=== PATIENT | female | born 1940 | race Caucasian/White ===

== ENCOUNTER → 2018-05-21 14:59 | Outpatient (CLI) | payer MEDICARE, OTHER, SELFPAY ==
[2018-05-21 16:34] LABS: BUN Creatinine Ratio 31.4 (6-22); Blood Urea Nitrogen 22 mg/dL (7-17); Calcium 9.6 mg/dL (8.4-10.2); Carbon Dioxide 31 mmol/L (22-32); Chloride 92 mmol/L (98-107); Cholesterol 176 mg/dL (140-199); Estimated Glomerular Filt Rate > 60.0 mL/min (>60); Glucose 134 mg/dL (80-110); HDL Cholesterol 68 mg/dL (40-60); HEMOLYSIS < 15 (0-50); LDL Cholesterol Calculated 85 mg/dL (<100); Potassium 4.5 mmol/L (3.4-5.1); Sodium 129 mmol/L (137-145); Triglycerides 115 mg/dL (35-150)
== END ==
PROVIDERS: PCP Internal Medicine; Visit Provider Internal Medicine
DX: Z00.00 Encounter for general adult medical examination without abnormal findings (principal)
CPT/HCPCS: 36415; 80048; 80061

== ENCOUNTER → 2018-12-24 15:30 | Outpatient (CLI) | payer MEDICARE, OTHER, SELFPAY ==
--- NOTE | 2018-12-24 | DI.RAD.S_ITS ---
PROCEDURE: XR CHEST 2V INDICATIONS: HEART FAILURE TECHNIQUE: 2 views of the chest were acquired. COMPARISON: None. FINDINGS: Surgical changes and devices: None. Lungs and pleura: Ill-defined patchy bibasilar opacities, without definite focal consolidation. No pleural effusions or pneumothorax. Mediastinum: Mediastinal contours are normal. Heart size is enlarged. No acute consolidation. Scattered subsegmental atelectasis and/or scarring. Bones and chest wall: No suspicious bony abnormalities. Soft tissues appear unremarkable. IMPRESSION: Scattered mild patchy bibasilar opacities. This could represent aspiration/atelectasis versus scarring although low grade atypical/viral pneumonia or developing pulmonary edema cannot be entirely excluded in the absence of prior comparison studies. No definite focal consolidation. If there is persistent clinical diagnostic uncertainty, continued surveillance with short interval chest radiographs after treatment is recommended. Dictated by: Janes Thornton M.D. on 12/24/2018 at 16:30 Approved by: Janes Thornton M.D. on 12/24/2018 at 16:33
--- NOTE | 2018-12-24 | DI.RAD.S_ITS ---
This blank DEXA report has been sent in error by the PACS system. The correct and complete report will be forthcoming in 1-2 days. Thank you for your patience and understanding. Dictated by: Janes Thornton M.D. on 12/24/2018 at 16:33 Approved by: Tim Hawthorne M.D. on 05/13/2019 at 6:24
== END ==
PROVIDERS: PCP Internal Medicine; Visit Provider Internal Medicine
DX: I50.9 Heart failure, unspecified (principal); M81.0 Age-related osteoporosis without current pathological fracture; Z78.0 Asymptomatic menopausal state
CPT/HCPCS: 71046; 77080

== ENCOUNTER → 2019-01-18 15:06 | Outpatient (CLI) | payer MEDICARE, OTHER, SELFPAY ==
--- NOTE | 2019-01-18 | DI.ECHO.S_ITS ---
[facility]---------+ [facility] +---------+ : : [address] [place] [address] : : : : [id number] : : : : Phone: [phone]+ Echocardiogram Report + + :Name: VALENTIN HERNANDEZ I Study Date: 01/18/2019 Height: 66 in : :[facility] Weight: 144 lb : : Gender: Female BSA: 1.7 m2 : :: 1940 Age: 78 yrs BP: 188/92 mmHg: :Reason For Study: Murmur : :Ordering Physician: : :Pardeep Pizarro Performed By: Carola Zuniga : + + Interpretation Summary Mild concentric left ventricular hypertrophy with ejection fraction 55-60%. Severely dilated left atrium. Mild aortic stenosis. Moderate to severe aortic regurgitation. There is mild holodiastolic flow reversal in the descending thoracic aorta. Mild-moderately enlarged ascending aorta. Moderate mitral annular calcification. Mild mitral regurgitation. Procedure: A two-dimensional transthoracic echocardiogram with color flow and Doppler was performed. The study quality was technically adequate. There is no prior echocardiogram noted for this patient. The patient was hypertensive during today's exam with a reading of 188/92 mmHg before the echo and 164/76 mmHg afterwards. The patient was in normal sinus rhythm during the exam. Left Ventricle: The left ventricle is normal in size. There is mild concentric left ventricular hypertrophy. A false chord is noted (normal variant). The ejection fraction is estimated to be 55-60%. There are no focal wall motion abnormalities. Diastolic function could not be accurately assessed due to confounding valvular disease. Right Ventricle: The right ventricle is normal in size and function. Atria: The left atrium is severely dilated. Right atrial size is normal. There is no Doppler evidence for an interatrial shunt. Mitral Valve: There is moderate mitral annular calcification. The mitral valve leaflets are mildly calcified. There is mild mitral regurgitation. Aortic Valve: The aortic valve is trileaflet. The aortic valve is moderately calcified. The aortic valve area is 1.4 centimeters squared by planimetry. The calculated aortic valve area is 1.6 cm2. The peak aortic velocity is 2.7 m/sec. The aortic valve mean gradient is 13.3 mmHg. There is mild aortic stenosis. There is moderate to severe aortic regurgitation. There is mild holodiastolic flow reversal in the descending thoracic aorta. Tricuspid Valve: The tricuspid valve is normal in structure and function. There is trace tricuspid regurgitation. Pulmonic Valve: The pulmonic valve is not well visualized. There is mild pulmonic regurgitation. Great Vessels: The aortic root is normal size. The ascending aorta is mild- moderately enlarged. The aortic arch is normal in size. The IVC is of normal diameter and collapses greater than 50% with a sniff. This suggests a low right atrial pressure of 3 mm Hg. MMode/2D Measurements & Calculations LVIDd: 4.6 cm LVOT diam: 2.3 cm LVIDs: 3.8 cm Ao root diam: 3.5 cm FS: 15.8 % Aortic Jxn: 3.2 cm EPSS: 0.80 cm asc Aorta Diam: 4.0 cm IVSd: 1.2 cm Ao Arch Diam (Prox Trans): 2.7 cm LVPWd: 1.0 cm LV green. diameter/BSA (cm/m^2): 2.6 LV sys. diameter/BSA (cm/m^2): 2.2 LA A2 area: 28.0 cm2 RA long axis: 5.9 cm LA A4 area: 32.3 cm2 RA area: 17.3 cm2 LA length (vol): 6.8 cm RA vol: 43.3 ml LA vol: 112.0 ml RA : 24.9 ml/m2 LA vol index: 64.4 ml/m2 IVC diam: 1.3 cm RVD1 (basal): 3.4 cm TAPSE: 2.0 cm ALON (plan): 1.4 cm2 Doppler Measurements & Calculations Ao V2 max: 273.0 cm/sec LVOT Max Chong: 108.6 cm/sec Ao V2 mean: 164.5 cm/sec LV V1 max P.7 mmHg Ao max P.8 mmHg LV V1 VTI: 20.4 cm Ao mean P.3 mmHg ALON(I,D): 1.6 cm2 Ao V2 VTI: 52.3 cm ALON(V,D): 1.7 cm2 sev ratio: 0.39 ALON indexed to BSA (cm^2/m^2): 0.94 AI P1/2t: 437.8 msec AI dec slope: 331.1 cm/sec2 MV E max chong: 92.5 cm/sec TR max chong: 214.7 cm/sec MV A max chong: 133.4 cm/sec TR max P.4 mmHg MV E/A: 0.69 PA V2 max: 87.7 cm/sec Med Peak E' Chong: 3.5 cm/sec PA V2 mean: 65.5 cm/sec E/E' med: 26.3 PA mean P.9 mmHg Lat Peak E' Chong: 5.5 cm/sec PA pr(Accel): 47.4 mmHg E/E' lat: 16.9 E/e' average: 21.6 MV dec time: 0.10 sec MV P1/2t: 29.2 msec MV P1/2t max chong: 93.3 cm/sec SV(LVOT): 86.0 ml MVA(P1/2t): 7.5 cm2 Electronically signed by: Jose Lo on Reading Physician:01/18/2019 04:57 PM
== END ==
PROVIDERS: PCP Internal Medicine; Visit Provider Internal Medicine
DX: I08.0 Rheumatic disorders of both mitral and aortic valves (principal); I77.89 Other specified disorders of arteries and arterioles; R01.1 Cardiac murmur, unspecified
CPT/HCPCS: 93306

== ENCOUNTER 2019-02-05 13:28 | Emergency (ER) | payer MEDICARE, OTHER, SELFPAY ==
[2019-02-05 13:30] VITALS: BP 211/82; PULSE 87; RESP 15; TEMP 37.1; O2SAT 100
[2019-02-05 13:49] LABS: Add Manual Diff / Slide Review NO; Basophils Absolute Auto 0 /uL (0-100); Basophils Percent Auto 0.3 % (0-2); Eosinophils Absolute Auto 0 /uL (0-450); Hematocrit 40.2 % (36-46); Hemoglobin 14.1 g/dL (12.0-16.0); Lymphocytes Absolute Auto 600 /uL (1100-4500); Lymphocytes Percent Auto 5.1 % (25-40); Mean Corpuscular HGB Conc 35.1 % (30-36); Mean Corpuscular Hemoglobin 30.7 PG (26-34); Mean Corpuscular Volume 87.4 fL (80-100); Monocytes Absolute Auto 500 /uL (0-900); Monocytes Percent Auto 4.8 % (3-14); Neutrophils Absolute Auto 9800 /uL (1500-7000); Neutrophils Percent Auto 89.8 % (50-75); Platelet Count 206 X10^3/uL (150-400); Prothrombin Time 11.6 SECONDS (10.1-12.7); Red Cell Distribution Width 13.9 % (11.6-14.8)
--- NOTE | 2019-02-05 13:51 | ED.NAVMDI ---
HPI - Nausea/Vomiting/Diarrhea General Chief complaint: Nausea/Vomiting/Diarrhea Stated complaint: Weakness Time Seen by Provider: 02/05/19 13:51 Source: patient Mode of arrival: EMS Limitations: no limitations History of Present Illness HPI Narrative: 78-year-old female brought in by EMS for 3 days of nausea and vomiting. She denies any diarrhea. She states that she has been unable to hold anything down for the past 3 days. Has had multiple episodes of vomiting last evening. It has been nonbloody. Denies any abdominal pain. No recent travel. Has not tried anything for her symptoms prior to arrival. Patient states that she called EMS to bring her into the hospital today because she was weak and felt very dehydrated and was unable to hold anything down. Related Data Home Medications Medication Instructions Recorded Confirmed amlodipine 2.5 mg PO DAILY 02/05/19 02/05/19 apixaban [Eliquis] 2.5 mg PO BID 02/05/19 02/05/19 nadolol 40 mg PO DAILY 02/05/19 02/05/19 simvastatin 5 mg PO DAILY 02/05/19 02/05/19 Previous Rx's Medication Instructions Recorded ondansetron HCl [Zofran] 4 mg PO BID-TID PRN #14 tab 02/05/19 Allergies Allergy/AdvReac Type Severity Reaction Status Date / Time acetaminophen Allergy Verified 02/05/19 13:35 [From Excedrin Back and Body] aspirin Allergy Verified 02/05/19 13:35 [From Excedrin Back and Body] calcium carbonate Allergy Verified 02/05/19 13:35 [From Excedrin Back and Body] Sulfa (Sulfonamide Allergy Verified 02/05/19 13:35 Antibiotics) Review of Systems Constitutional Reports fatigue, Denies fever(s) and Reports lethargy Cardiovascular Denies chest pain and Denies dyspnea Respiratory Denies dyspnea Gastrointestinal Gastrointestinal: Denies abdominal pain, Denies change in bowel habits, Reports nausea and Reports vomiting Integumentary/Breasts Denies rash Endocrine Reports fatigue Hematologic/Lymphatic Comments: On Eliquis [facility] Medical History Hypertension (Acute) Social History lives independently: Yes Social History lives independently: Yes Exam Initial Vital Signs Initial Vital Signs: Vital Signs Temperature 98.7 F 02/05/19 13:30 Pulse Rate 87 02/05/19 13:30 Respiratory Rate 15 02/05/19 13:30 Blood Pressure 211/82 H 02/05/19 13:30 Pulse Oximetry 100 02/05/19 13:30 Const General: cooperative, healthy appearing, comfortable, well developed, well groomed and No acute distress Orientation: alert, awake and oriented x3 HENMT Mouth: other (Dry mucous membranes) Resp Effort & Inspection: normal respiratory effort Auscultation: clear to auscultation bilaterally Cardio Rate: regular rate Rhythm: regular rhythm GI Inspection: non-distended Palpation: No firm and No tender Skin Lesions: no lesions Rashes: no rashes Neuro General: alert, awake and oriented x3 Cognition: normal cognition Speech: speech normal Extrem General: normal to inspection, capillary refill normal and no pedal edema Psych Appearance: grossly normal and well kempt Course Orders Ordered: ED Orders 02/05/19 13:41 Complete Blood Count AUTO DIFF Stat Partial Thromboplastin Time Stat Prothrombin Time INR Stat 02/05/19 14:24 Comprehensive Metabolic Panel Stat Lipase Stat 02/05/19 16:27 Urine Microscopic Stat Discontinued Medications Sodium Chloride (Normal Saline 0.9%) 1,000 mls @ 1,000 mls/hr IV BOLUS ONE Stop: 02/05/19 14:59 Last Infusion: 02/05/19 16:50 Dose: 0 mls/hr Admin: 02/05/19 14:14 Dose: 1,000 mls/hr Ondansetron HCl (Zofran) 4 mg IV NOW ONE Stop: 02/05/19 14:01 Last Admin: 02/05/19 14:14 Dose: 4 mg Vital Signs - 8 hr 02/05/19 13:30 02/05/19 14:28 02/05/19 15:22 Temperature 98.7 F Pulse Rate 87 71 72 Respiratory Rate 15 13 16 Blood Pressure 211/82 H Blood Pressure [Left Arm] 192/83 H 199/66 H Pulse Oximetry 100 99 98 02/05/19 16:00 02/05/19 17:21 Temperature Pulse Rate 72 77 Respiratory Rate 16 16 Blood Pressure Blood Pressure [Left Arm] 189/76 H 192/74 H Pulse Oximetry 99 99 MDM - Nausea/Vomiting/Diarrhea Lab Data Attestation: I reviewed the patient's lab results. Result diagrams: 02/05/19 13:41 02/05/19 14:24 Lab Results 02/05/19 02/05/19 02/05/19 Range/Units 13:41 13:41 14:24 WBC 11.0 (4.5-11.0) X10^3/uL RBC 4.60 (4.0-5.2) X10^6/uL Hgb 14.1 (12.0-16.0) g/dL Hct 40.2 (36-46) % MCV 87.4 (80-100) fL MCH 30.7 (26-34) PG MCHC 35.1 (30-36) % RDW 13.9 (11.6-14.8) % Plt Count 206 (150-400) X10^3/uL Neut % (Auto) 89.8 H (50-75) % Lymph % (Auto) 5.1 L (25-40) % [place] % (Auto) 4.8 (3-14) % Eos % (Auto) 0.0 L (2-4) % Baso % (Auto) 0.3 (0-2) % Neut # (Auto) 9800 H (7681-2128) /uL Lymph # (Auto) 600 L (0194-7998) /uL [place] # (Auto) 500 (0-900) /uL Eos # (Auto) 0 (0-450) /uL Baso # (Auto) 0 (0-100) /uL PT 11.6 (10.1-12.7) SECONDS INR 1.0 (0.9-1.3) APTT 20 L (26.4-36.2) SECONDS Sodium 130 L (137-145) mmol/L Potassium 3.7 (3.4-5.1) mmol/L Chloride 89 L (98-107) mmol/L Carbon Dioxide 29 (22-32) mmol/L BUN 31 H (7-17) mg/dL Creatinine 0.70 (0.52-1.04) mg/dL Estimated GFR > 60.0 (>60) mL/min BUN/Creatinine Ratio 44.3 H (6-22) Glucose 142 H (80-110) mg/dL Calcium 10.1 (8.4-10.2) mg/dL Total Bilirubin 1.3 (0.2-1.3) mg/dL AST 32 (14-36) IU/L ALT 25 (9-52) IU/L Alkaline Phosphatase 60 (38-126) U/L Total Protein 8.7 H (6.3-8.2) g/dL Albumin 4.7 (3.5-5.0) g/dL Globulin 4.0 (1.7-4.1) g/dL Albumin/Globulin Ratio 1.2 (1.0-2.8) Lipase 51 (23-300) U/L Urine RBC (0-5/HPF) Urine WBC (0-5/HPF) Ur Squamous Epith Cells (0-5/HPF) Amorphous Sediment Urine Bacteria (None) Ur Culture Indicated? 02/05/19 Range/Units 16:27 WBC (4.5-11.0) X10^3/uL RBC (4.0-5.2) X10^6/uL Hgb (12.0-16.0) g/dL Hct (36-46) % MCV (80-100) fL MCH (26-34) PG MCHC (30-36) % RDW (11.6-14.8) % Plt Count (150-400) X10^3/uL Neut % (Auto) (50-75) % Lymph % (Auto) (25-40) % [place] % (Auto) (3-14) % Eos % (Auto) (2-4) % Baso % (Auto) (0-2) % Neut # (Auto) (9093-9879) /uL Lymph # (Auto) (6861-1146) /uL [place] # (Auto) (0-900) /uL Eos # (Auto) (0-450) /uL Baso # (Auto) (0-100) /uL PT (10.1-12.7) SECONDS INR (0.9-1.3) APTT (26.4-36.2) SECONDS Sodium (137-145) mmol/L Potassium (3.4-5.1) mmol/L Chloride (98-107) mmol/L Carbon Dioxide (22-32) mmol/L BUN (7-17) mg/dL Creatinine (0.52-1.04) mg/dL Estimated GFR (>60) mL/min BUN/Creatinine Ratio (6-22) Glucose (80-110) mg/dL Calcium (8.4-10.2) mg/dL Total Bilirubin (0.2-1.3) mg/dL AST (14-36) IU/L ALT (9-52) IU/L Alkaline Phosphatase (38-126) U/L Total Protein (6.3-8.2) g/dL Albumin (3.5-5.0) g/dL Globulin (1.7-4.1) g/dL Albumin/Globulin Ratio (1.0-2.8) Lipase (23-300) U/L Urine RBC 0-1/hpf (0-5/HPF) Urine WBC 1-5/hpf (0-5/HPF) Ur Squamous Epith Cells 0-1 /hpf (0-5/HPF) Amorphous Sediment 1+ Urine Bacteria Occasional (0-1) (None) Ur Culture Indicated? Cult not indicated Urine Dip Bedside Urine Glucose Negative Bedside Urine Bilirubin - Negative Bedside Urine Ketone - Negative Urine Specific [place] 1.020 Bedside Urine Occult Blood +/- Bedside Urine pH 6.5 Bedside Urine Protein ++ 100 Bedside Urine Urobilinogen - Negative Bedside Urine Nitrite - Negative Bedside Urine Leukocytes - Negative Esterase MDM Narrative Medical decision making narrative: Patient with isolated nausea and vomiting. Without any diarrhea. She was given fluids and Zofran. Was able to tolerate oral intake. Was able to eat crackers. She did urinate here in the ER. She did not describe any chest pain or abdominal pain. will send home with prescription for Zofran. We did discuss a bland diet and the importance of staying hydrated. Did discuss that the Zofran potentially will not take the nausea away however should help with the vomiting. She was given return precautions. She did ambulate to the bathroom without any problems. Informed that she needed to contact her primary doctor for follow-up. She expressed understanding and agreement with plan. Discharge Plan Departure Patient Disposition: Home Clinical Impression: Dehydration Nausea and vomiting Qualifiers: Vomiting type: unspecified Vomiting Intractability: unspecified Qualified Code(s): R11.2 - Nausea with vomiting, unspecified Discharge Date/Time: 02/05/19 17:23 Interventions: ED Discharge Assessment Last Done: 02/05/19 17:23 Instructions: DI for Dehydration -- Adult, DI for Nausea -- Adult, DI for Vomiting -- Adult Activity Restrictions/Additional Instructions: Take the nausea medicine as needed. Be sure to increase your fluid intake. Contact your primary care doctor for a follow-up. Eat a bland diet and increase as tolerated. Return to the emergency department for any new or worsening symptoms Prescriptions: New ondansetron HCl [Zofran] 4 mg tablet 4 mg PO BID-TID PRN (Reason: nausea and vomiting) Qty: 14 RF: 0 No Action amlodipine 2.5 mg tablet 2.5 mg PO DAILY RF: 0 simvastatin 5 mg tablet 5 mg PO DAILY RF: 0 nadolol 40 mg tablet 40 mg PO DAILY RF: 0 Eliquis 2.5 mg tablet 2.5 mg PO BID RF: 0 Referrals: Pardeep Pizarro MD [Primary Care Provider] -
[2019-02-05 13:52] LABS: PTT Partial Thromboplastin Tim 20 SECONDS (26.4-36.2)
[2019-02-05] MEDS: ONDANSETRON 4 MG/2 ML INJ IV (14:14)
[2019-02-05] MEDS: SODIUM CHLORIDE 0.9% 1,000 ML 1000 ML IV (14:14)
[2019-02-05 14:28] VITALS: BP 192/83; PULSE 71; RESP 13; O2SAT 99
[2019-02-05 14:51] LABS: Alanine Aminotransferase 25 IU/L (9-52); Albumin 4.7 g/dL (3.5-5.0); Albumin Globulin Ratio 1.2 (1.0-2.8); Alkaline Phosphatase 60 U/L (38-126); Aspartate Aminotransferase 32 IU/L (14-36); BUN Creatinine Ratio 44.3 (6-22); Bilirubin Total 1.3 mg/dL (0.2-1.3); Blood Urea Nitrogen 31 mg/dL (7-17); Calcium 10.1 mg/dL (8.4-10.2); Carbon Dioxide 29 mmol/L (22-32); Chloride 89 mmol/L (98-107); Estimated Glomerular Filt Rate > 60.0 mL/min (>60); Glucose 142 mg/dL (80-110); HEMOLYSIS < 15 (0-50); Lipase 51 U/L (23-300); Potassium 3.7 mmol/L (3.4-5.1); Sodium 130 mmol/L (137-145); Total Protein 8.7 g/dL (6.3-8.2)
[2019-02-05 15:22] VITALS: BP 199/66; PULSE 72; RESP 16; O2SAT 98
[2019-02-05 16:00] VITALS: BP 189/76; PULSE 72; RESP 16; O2SAT 99
[2019-02-05 16:46] LABS: Amorphous Sediment Urine 1+; Bacteria Urine Occasional (0-1); Culture Indicated Urine Cult Not Indicated; RBC Urine 0-1/HPF (0-5/HPF); Squamous Epithelial Cell Urine 0-1 /HPF (0-5/HPF); WBC Urine 1-5/HPF (0-5/HPF)
[2019-02-05 17:21] VITALS: BP 192/74; PULSE 77; RESP 16; O2SAT 99
--- NOTE | 2019-02-05 17:22 | PC.NURSE ---
Patient drank 200ml of water and juice and ate several crackers. No vomiting and states she feels improved. Ambulates without assistance. Verbalizes understanding of zofran ODT and BRAT diet for home. Friend Aida Maress at bedside to drive her to the pharmacy and home. I reminded her to take her medications especially her BP meds when she gets home as well.
== END 2019-02-05 17:23 | disposition home or self-care (01) ==
PROVIDERS: Emergency Provider Emergency Medicine; PCP Internal Medicine
DX: E86.0 Dehydration (principal); R11.2 Nausea with vomiting, unspecified
CPT/HCPCS: 36591; 80053; 81003; 81015; 83690; 85025; 85610; 85730; 96361; 96374; 99283; 99284; J2405

== ENCOUNTER → 2019-08-12 14:41 | Outpatient (CLI) | payer MEDICARE, OTHER, SELFPAY ==
--- NOTE | 2019-08-12 | DI.MG.S_ITS ---
BILATERAL DIGITAL SCREENING MAMMOGRAM 3D/2D WITH CAD: 08/12/2019 CLINICAL: Routine screening. Comparison is made to exams dated: 12/29/2015 mammogram, 06/16/2017 mammogram, and 07/12/2018 mammogram - [facility] Mueller. The tissue of both breasts is heterogeneously dense. This may lower the sensitivity of mammography. Best possible images were obtained given patient mobility limitations. Current study was also evaluated with a Computer Aided Detection (CAD) system. There are post operative findings in the left breast with overlying linear scar marker. No significant masses, calcifications, or other findings are seen in either breast. There has been no significant interval change. IMPRESSION: There is no mammographic evidence of malignancy. A 1 year screening mammogram is recommended. This exam was interpreted at Station ID: [id number]. NOTE: For mammograms, a report in lay terms will be sent to the patient. Approximately 15% of breast malignancies will not be visualized mammographically. In the management of a palpable breast mass, a negative mammogram must not discourage biopsy of a clinically suspicious lesion. Electronically Signed By: Morgan Blake M.D. ecl/:08/12/2019 18:44:29 letter sent: Normal Exam ACR BI-RADS Category 2: Benign Finding(s) 3342F
== END ==
PROVIDERS: PCP Internal Medicine; Visit Provider Internal Medicine
DX: Z12.31 Encounter for screening mammogram for malignant neoplasm of breast (principal)
CPT/HCPCS: 77063; 77067

== ENCOUNTER → 2019-12-18 15:23 | Outpatient (CLI) | payer MEDICARE, OTHER, SELFPAY ==
--- NOTE | 2019-12-18 | DI.RAD.S_ITS ---
PROCEDURE: XR CHEST 2V INDICATIONS: ACUTE BRONCHITIS, UNSPECIFIED TECHNIQUE: 2 views of the chest were acquired. COMPARISON: [facility], CR, XR CHEST 2V, 12/24/2018, 15:46. FINDINGS: Surgical changes and devices: None. Lungs and pleura: Lungs are mildly edematous. No pleural effusions or pneumothorax. Mediastinum: Mediastinal contours are normal. Heart size is mildly enlarged. Bones and chest wall: No suspicious bony abnormalities. Soft tissues appear unremarkable. IMPRESSION: Mild acute exacerbation of chronic CHF by appearance. Dictated by: Tim Hawthorne M.D. on 12/18/2019 at 15:54 Approved by: Tim Hawthorne M.D. on 12/18/2019 at 15:54
[2019-12-18 16:41] LABS: Add Manual Diff / Slide Review NO; Basophils Absolute Auto 100 /uL (0-100); Basophils Percent Auto 0.7 % (0-2); Eosinophils Absolute Auto 200 /uL (0-450); Eosinophils Percent Auto 1.7 % (2-4); Hematocrit 35.3 % (36-46); Lymphocytes Absolute Auto 800 /uL (1100-4500); Lymphocytes Percent Auto 8.7 % (25-40); Mean Corpuscular Hemoglobin 30.8 PG (26-34); Mean Corpuscular Volume 90.5 fL (80-100); Monocytes Absolute Auto 1100 /uL (0-900); Monocytes Percent Auto 11.8 % (3-14); Neutrophils Absolute Auto 7000 /uL (1500-7000); Neutrophils Percent Auto 77.1 % (50-75); Platelet Count 165 X10^3/uL (150-400); Red Cell Distribution Width 13.8 % (11.6-14.8); White Blood Cell Count 9.1 X10^3/uL (4.5-11.0)
[2019-12-18 17:49] LABS: Alanine Aminotransferase 19 IU/L (<35); Albumin 4.2 g/dL (3.5-5.0); Albumin Globulin Ratio 1.2 (1.0-2.8); Alkaline Phosphatase 65 U/L (38-126); Aspartate Aminotransferase 25 IU/L (14-36); BUN Creatinine Ratio 41.3 (6-22); Blood Urea Nitrogen 33 mg/dL (7-17); Calcium 9.8 mg/dL (8.4-10.2); Carbon Dioxide 31 mmol/L (22-32); Chloride 98 mmol/L (98-107); Cholesterol 187 mg/dL (140-199); Estimated Glomerular Filt Rate > 60.0 mL/min (>60); Globulin 3.6 g/dL (1.7-4.1); Glucose 112 mg/dL (80-110); HDL Cholesterol 68 mg/dL (40-60); HEMOLYSIS < 15 (0-50); LDL Cholesterol Calculated 91 mg/dL (<100); Potassium 4.1 mmol/L (3.4-5.1); Sodium 137 mmol/L (137-145); Total Protein 7.8 g/dL (6.3-8.2); Triglycerides 138 mg/dL (35-150)
[2019-12-18 18:30] LABS: TSH w/ Reflex to FT4 1.62 uIU/mL (0.47-4.68)
== END ==
PROVIDERS: PCP Internal Medicine; Referring Provider Internal Medicine; Visit Provider Internal Medicine
DX: I48.91 Unspecified atrial fibrillation (principal); E78.2 Mixed hyperlipidemia; J20.9 Acute bronchitis, unspecified
CPT/HCPCS: 36415; 71046; 80053; 80061; 84443; 85025

== ENCOUNTER → 2020-08-03 19:16 | Outpatient (ROUT) | payer MEDICARE, OTHER, SELFPAY ==
[2020-08-03 20:01] LABS: Add Manual Diff / Slide Review NO; Basophils Absolute Auto 100 /uL (0-100); Basophils Percent Auto 1.1 % (0-2); Eosinophils Absolute Auto 100 /uL (0-450); Eosinophils Percent Auto 2.4 % (2-4); Hematocrit 35.8 % (36-46); Lymphocytes Absolute Auto 900 /uL (1100-4500); Lymphocytes Percent Auto 14.7 % (25-40); Mean Corpuscular HGB Conc 33.6 % (30-36); Mean Corpuscular Hemoglobin 30.4 PG (26-34); Mean Corpuscular Volume 90.5 fL (80-100); Monocytes Absolute Auto 700 /uL (0-900); Monocytes Percent Auto 12.1 % (3-14); Neutrophils Absolute Auto 4200 /uL (1500-7000); Neutrophils Percent Auto 69.7 % (50-75); Platelet Count 171 X10^3/uL (150-400); Red Blood Cell Count 3.95 X10^6/uL (4.0-5.2)
[2020-08-03 20:15] LABS: Alanine Aminotransferase 21 IU/L (<35); Albumin 4.2 g/dL (3.5-5.0); Albumin Globulin Ratio 1.2 (1.0-2.8); Alkaline Phosphatase 57 U/L (38-126); Aspartate Aminotransferase 31 IU/L (14-36); Bilirubin Total 0.8 mg/dL (0.2-1.3); Blood Urea Nitrogen 34 mg/dL (7-17); Carbon Dioxide 35 mmol/L (22-32); Chloride 96 mmol/L (98-107); Cholesterol 188 mg/dL (140-199); Estimated Glomerular Filt Rate > 60.0 mL/min (>60); Globulin 3.6 g/dL (1.7-4.1); Glucose 105 mg/dL (80-110); HDL Cholesterol 82 mg/dL (40-60); HEMOLYSIS < 15 (0-50); LDL Cholesterol Calculated 88 mg/dL (<100); Potassium 4.3 mmol/L (3.4-5.1); Sodium 135 mmol/L (137-145); Total Protein 7.8 g/dL (6.3-8.2); Triglycerides 88 mg/dL (35-150)
[2020-08-03 20:30] LABS: TSH w/ Reflex to FT4 1.88 uIU/mL (0.47-4.68)
== END ==
PROVIDERS: PCP Internal Medicine; Visit Provider Internal Medicine
DX: M79.605 Pain in left leg (principal); I35.1 Nonrheumatic aortic (valve) insufficiency; E78.2 Mixed hyperlipidemia
CPT/HCPCS: 80053; 80061; 84443; 85025

== ENCOUNTER → 2020-11-05 12:29 | Outpatient (CLI) | payer MEDICARE, OTHER, SELFPAY ==
--- NOTE | 2020-11-05 | DI.US.S_ITS ---
PROCEDURE: US RENAL COMPLETE INDICATIONS: RECURRENT UTI TECHNIQUE: Real-time scanning was performed of the kidneys and bladder, with image documentation. COMPARISON: None. FINDINGS: Kidneys: Kidneys are normal in size. Right kidney measures 9.4 cm long; left kidney measures 11.9 cm long. Right renal cortical thickness is 1.5 cm; left renal cortical thickness is 1.5 cm. Renal cortical echotexture is normal. No hydronephrosis or nephrolithiasis. No suspicious solid mass lesions. At the superior pole of the right kidney, there is a simple cyst seen that measures 6 x 3.9 x 3.6 cm. Within the left mid kidney laterally, there is a 4.2 x 3.7 x 4.6 cm simple cyst seen. Bladder: Pre-void bladder volume is 161 mL. Post-void residual is 77 mL. Pre-void images demonstrate no intraluminal masses or stones. On pre-void images, both ureteral jets are noted with color Doppler interrogation. (Of note, ureteral jets may not be detectable in up to 25% of cases due to insufficient differences in specific gravity between ureteral and bladder urine). Miscellaneous: No free pelvic fluid. IMPRESSION: Moderate postvoid residual, 77 cc. Negative for hydronephrosis. Bilateral simple appearing renal cysts are seen. Dictated by: Murali Quiros M.D. on 11/05/2020 at 13:47 Approved by: Murali Quiros M.D. on 11/05/2020 at 13:48
== END ==
PROVIDERS: PCP Internal Medicine; Referring Provider Urology; Visit Provider Urology
DX: N39.0 Urinary tract infection, site not specified (principal); N28.1 Cyst of kidney, acquired
CPT/HCPCS: 76770

== ENCOUNTER → 2020-12-29 13:12 | Outpatient (CLI) | payer MEDICARE, OTHER, SELFPAY | PROVIDERS: PCP Internal Medicine; Referring Provider Internal Medicine; Visit Provider Internal Medicine | DX: M81.0 Age-related osteoporosis without current pathological fracture (principal); Z78.0 Asymptomatic menopausal state | CPT/HCPCS: 77080 ==

== ENCOUNTER → 2021-01-11 19:33 | Outpatient (ROUT) | payer MEDICARE, OTHER, SELFPAY ==
[2021-01-11 19:40] LABS: Add Manual Diff / Slide Review NO; Basophils Absolute Auto 100 /uL (0-100); Basophils Percent Auto 1.2 % (0-2); Eosinophils Absolute Auto 200 /uL (0-450); Eosinophils Percent Auto 2.9 % (2-4); Hematocrit 36.4 % (36-46); Hemoglobin 12.2 g/dL (12.0-16.0); Lymphocytes Absolute Auto 700 /uL (1100-4500); Lymphocytes Percent Auto 12.1 % (25-40); Mean Corpuscular HGB Conc 33.5 % (30-36); Mean Corpuscular Hemoglobin 30.6 PG (26-34); Mean Corpuscular Volume 91.1 fL (80-100); Monocytes Absolute Auto 600 /uL (0-900); Monocytes Percent Auto 10.9 % (3-14); Neutrophils Absolute Auto 4300 /uL (1500-7000); Neutrophils Percent Auto 72.9 % (50-75); Platelet Count 167 X10^3/uL (150-400); Red Blood Cell Count 3.99 X10^6/uL (4.0-5.2); Red Cell Distribution Width 14.1 % (11.6-14.8); White Blood Cell Count 5.8 X10^3/uL (4.5-11.0)
[2021-01-11 19:53] LABS: BUN Creatinine Ratio 43.2 (6-22); Blood Urea Nitrogen 32 mg/dL (7-17); Calcium 9.8 mg/dL (8.4-10.2); Carbon Dioxide 34 mmol/L (22-32); Chloride 97 mmol/L (98-107); Cholesterol 205 mg/dL (140-199); Estimated Glomerular Filt Rate > 60.0 mL/min (>60); Glucose 127 mg/dL (80-110); HDL Cholesterol 77 mg/dL (40-60); HEMOLYSIS < 15 (0-50); LDL Cholesterol Calculated 111 mg/dL (<100); Potassium 4.3 mmol/L (3.4-5.1); Sodium 134 mmol/L (137-145); Triglycerides 84 mg/dL (35-150)
[2021-01-11 20:20] LABS: TSH w/ Reflex to FT4 1.63 uIU/mL (0.47-4.68)
== END ==
PROVIDERS: PCP Internal Medicine; Visit Provider Internal Medicine
DX: I50.32 Chronic diastolic (congestive) heart failure (principal); D68.69 Other thrombophilia; E78.2 Mixed hyperlipidemia
CPT/HCPCS: 80048; 80061; 84443; 85025

== ENCOUNTER → 2021-03-17 15:17 | Outpatient (ROUT) | payer MEDICARE, OTHER, SELFPAY ==
[2021-03-17 15:30] LABS: Add Manual Diff / Slide Review NO; Basophils Absolute Auto 100 /uL (0-100); Basophils Percent Auto 1.1 % (0-2); Eosinophils Absolute Auto 100 /uL (0-450); Eosinophils Percent Auto 2.1 % (2-4); Hematocrit 35.4 % (36-46); Hemoglobin 11.6 g/dL (12.0-16.0); Lymphocytes Absolute Auto 800 /uL (1100-4500); Lymphocytes Percent Auto 11.6 % (25-40); Mean Corpuscular HGB Conc 32.9 % (30-36); Mean Corpuscular Hemoglobin 30.4 PG (26-34); Mean Corpuscular Volume 92.3 fL (80-100); Monocytes Absolute Auto 700 /uL (0-900); Monocytes Percent Auto 10.4 % (3-14); Neutrophils Absolute Auto 4900 /uL (1500-7000); Neutrophils Percent Auto 74.8 % (50-75); Platelet Count 170 X10^3/uL (150-400); Red Blood Cell Count 3.83 X10^6/uL (4.0-5.2); Red Cell Distribution Width 13.8 % (11.6-14.8); White Blood Cell Count 6.6 X10^3/uL (4.5-11.0)
[2021-03-17 15:54] LABS: HEMOLYSIS < 15 (0-50); NT-proBNP (BNP-Adult 18+) 1350 pg/mL (<450)
[2021-03-17 15:57] LABS: Alanine Aminotransferase 29 IU/L (<35); Albumin 4.3 g/dL (3.5-5.0); Albumin Globulin Ratio 1.3 (1.0-2.8); Alkaline Phosphatase 62 U/L (38-126); Aspartate Aminotransferase 35 IU/L (14-36); Bilirubin Total 0.6 mg/dL (0.2-1.3); Blood Urea Nitrogen 31 mg/dL (7-17); Calcium 9.9 mg/dL (8.4-10.2); Carbon Dioxide 28 mmol/L (22-32); Chloride 99 mmol/L (98-107); Estimated Glomerular Filt Rate > 60.0 mL/min (>60); Globulin 3.4 g/dL (1.7-4.1); Glucose 110 mg/dL (80-110); Potassium 4.2 mmol/L (3.4-5.1); Sodium 135 mmol/L (137-145); Total Protein 7.7 g/dL (6.3-8.2)
[2021-03-17 16:10] LABS: TSH w/ Reflex to FT4 1.89 uIU/mL (0.47-4.68)
== END ==
PROVIDERS: PCP Internal Medicine; Visit Provider Internal Medicine
DX: I50.32 Chronic diastolic (congestive) heart failure (principal)
CPT/HCPCS: 80053; 83880; 84443; 85025

== ENCOUNTER 2021-04-27 13:22 | Emergency (ER) | payer MEDICARE, OTHER, SELFPAY ==
[2021-04-27] VITALS (12 sets, daily range): BP systolic 168–201; BP diastolic 69–88; PULSE 74–96; RESP 16–34; TEMP 36.5; O2SAT 92–98; BMI 22.6
--- NOTE | 2021-04-27 13:35 | DI.RAD.S_ITS ---
PROCEDURE: XR CHEST 1V INDICATIONS: chest pain TECHNIQUE: One view of the chest was acquired. COMPARISON: [facility], CR, XR CHEST 2V, 12/18/2019, 15:33. FINDINGS: Surgical changes and devices: None. Lungs and pleura: Left basilar atelectasis is seen. No focal infiltrate. No pleural effusions or pneumothorax. Mediastinum: Aortic arch calcifications are seen.. Heart size is enlarged. Bones and chest wall: No suspicious bony lesions. Overlying soft tissues appear unremarkable. IMPRESSION: Left basilar atelectasis. No focal infiltrate, significant pleural effusion or pneumothorax. Dictated by: Eduar Burleson M.D. on 04/27/2021 at 14:48 Approved by: Eduar Burleson M.D. on 04/27/2021 at 14:49
[2021-04-27 13:42] LABS: Add Manual Diff / Slide Review NO; Basophils Absolute Auto 0 /uL (0-100); Basophils Percent Auto 0.5 % (0-2); Eosinophils Absolute Auto 0 /uL (0-450); Hemoglobin 12.9 g/dL (12.0-16.0); Lymphocytes Absolute Auto 400 /uL (1100-4500); Lymphocytes Percent Auto 5.1 % (25-40); Mean Corpuscular HGB Conc 33.1 % (30-36); Mean Corpuscular Hemoglobin 30.3 PG (26-34); Mean Corpuscular Volume 91.6 fL (80-100); Monocytes Absolute Auto 300 /uL (0-900); Monocytes Percent Auto 3.7 % (3-14); Neutrophils Absolute Auto 7200 /uL (1500-7000); Neutrophils Percent Auto 90.7 % (50-75); Platelet Count 161 X10^3/uL (150-400); Red Blood Cell Count 4.26 X10^6/uL (4.0-5.2); Red Cell Distribution Width 13.6 % (11.6-14.8)
[2021-04-27 13:48] LABS: Alanine Aminotransferase 27 IU/L (<35); Albumin 4.6 g/dL (3.5-5.0); Albumin Globulin Ratio 1.1 (1.0-2.8); Alkaline Phosphatase 78 U/L (38-126); Aspartate Aminotransferase 36 IU/L (14-36); BUN Creatinine Ratio 38.5 (6-22); Blood Urea Nitrogen 25 mg/dL (7-17); Calcium 10.3 mg/dL (8.4-10.2); Carbon Dioxide 29 mmol/L (22-32); Chloride 95 mmol/L (98-107); Estimated Glomerular Filt Rate > 60.0 mL/min (>60); Globulin 4.3 g/dL (1.7-4.1); Glucose 162 mg/dL (80-110); HEMOLYSIS < 15 (0-50); Lipase 130 U/L (23-300); Potassium 4.3 mmol/L (3.4-5.1); Sodium 131 mmol/L (137-145); Total Protein 8.9 g/dL (6.3-8.2)
[2021-04-27 13:49] LABS: Creatine Kinase 83 U/L (30-135)
[2021-04-27 14:00] LABS: Troponin I < 0.012 ng/mL (0.01-0.034)
--- NOTE | 2021-04-27 14:00 | ED_ITS ---
HPI - Nausea/Vomiting/Diarrhea General Chief complaint: Nausea/Vomiting/Diarrhea Stated complaint: N/V x2 days Time Seen by Provider: 04/27/21 13:37 Source: patient and EMS Mode of arrival: EMS History of Present Illness HPI Narrative: Patient is a 80-year-old female presents with nausea vomiting and diarrhea ongoing for last 2 days. She actually has been having more loose stools than vomiting. She has actually had multiple loose but formed stools in the emergency department non bloody. She has no abdominal pain or cramping. She feels nauseous at times. She has no chest pain or palpitations. She is unable to keep down any of her own medications. She called her primary care provider who recommended she come to the emergency department for evaluation. He denies any fever or chills. Related Data Home Medications Medication Instructions Recorded Confirmed amlodipine 2.5 mg tablet 2.5 mg PO DAILY 02/05/19 02/05/19 apixaban 2.5 mg tablet 2.5 mg PO BID 02/05/19 02/05/19 nadolol 40 mg tablet 40 mg PO DAILY 02/05/19 02/05/19 simvastatin 5 mg tablet 5 mg PO DAILY 02/05/19 02/05/19 Previous Rx's Medication Instructions Recorded ondansetron HCl 4 mg tablet 4 mg PO BID-TID PRN #14 tab 02/05/19 (Zofran) cephalexin 500 mg capsule 500 mg PO BID 5 Days #10 cap 04/27/21 metoclopramide HCl 5 mg tablet 5 mg PO Q6H PRN #10 tab 04/27/21 (Reglan) Allergies Allergy/AdvReac Type Severity Reaction Status Date / Time acetaminophen Allergy Verified 04/27/21 14:18 [From Excedrin Back and Body] aspirin Allergy Verified 04/27/21 14:18 [From Excedrin Back and Body] calcium carbonate Allergy Verified 04/27/21 14:18 [From Excedrin Back and Body] Sulfa (Sulfonamide Allergy Verified 04/27/21 14:18 Antibiotics) Review of Systems Review of Systems Narrative: GENERAL: Denies chills, fatigue, malaise, fever, sweats, travel HEENT: Denies sinus pain, ear pain, sore throat, difficulty swallowing, neck pain RESPIRATORY: Denies dyspnea, cough, wheezing, hemoptysis, sputum. CARDIOVASCULAR: Denies chest pain, palpitations, orthopnea, edema GASTROINTESTINAL: See HPI : Denies dysuria, frequency, incontinence, hematuria, urinary retention, flank pain. MUSCULOSKELETAL: Denies weakness, joint pain, or bony pain SKIN: No rash, no erythema, no pruritus NEUROLOGIC: Denies weakness, dizziness, headache, numbness, change in speech, confusion PSYCHIATRIC: No concerning psychosocial issues. 12 point review of systems is negative except for those stated above and HPI Patient History Medical History (Updated 04/27/21 @ 17:33 by Katie Ko DO) Hypertension Social History lives independently: Yes Exam Initial Vital Signs Initial Vital Signs: Vital Signs Pulse Rate 96 H 04/27/21 13:22 Respiratory Rate 16 04/27/21 13:22 Blood Pressure 201/87 H 04/27/21 13:22 Pulse Oximetry 96 04/27/21 13:22 GENERAL: Alert 80-year-old female appears well and in no acute distress. HEENT: Head atraumatic,EOMI, pupils reactive, face symmetric, moist mucous membranes CARDIOVASCULAR: Regular rate and rhythm without murmurs, rubs or gallops. RESPIRATORY: Breath sounds equal bilaterally, no wheezes rales or rhonchi. ABDOMEN: Soft, nontender. Normoactive bowel sounds all 4 quadrants. No guarding or rebound. Hemoccult negative according to nursing : No CVA tenderness EXTREMITIES: Normal range of motion, no clubbing or edema. Neurovascularly intact NEUROLOGICAL: Alert and oriented x4.Normal gait and speech. SKIN: Warm, dry, no laceration, no petechiae, no rashes or lesions. Course Orders Ordered: Discontinued Medications Sodium Chloride (Normal Saline 0.9%) 1,000 mls @ 1,000 mls/hr IV BOLUS ONE Stop: 04/27/21 15:18 Last Admin: 04/27/21 14:20 Dose: 1,000 mls/hr Documented by: MAYANK Metoclopramide HCl (Metoclopramide 10 Mg/2 Ml Inj) 10 mg IV NOW ONE Stop: 04/27/21 14:01 Last Admin: 04/27/21 14:18 Dose: 10 mg Documented by: MAYANK Pantoprazole Sodium (Pantoprazole 40 Mg Vial) 40 mg IV NOW ONE Stop: 04/27/21 14:01 Last Admin: 04/27/21 14:18 Dose: 40 mg Documented by: MAYANK Pantoprazole Sodium (Pantoprazole 40 Mg Vial) 40 mg IV NOW ONE Stop: 04/27/21 16:59 Vital Signs Vital signs: Vital Signs - 8 hr 04/27/21 13:22 04/27/21 13:28 04/27/21 13:30 Pulse Rate 96 H 81 79 Respiratory Rate 16 Blood Pressure 201/87 H 201/87 H Pulse Oximetry 96 97 97 04/27/21 14:00 04/27/21 14:01 04/27/21 14:08 Pulse Rate 77 76 81 Respiratory Rate 24 24 24 Blood Pressure 168/74 H 190/85 H Pulse Oximetry 96 96 97 04/27/21 14:30 04/27/21 15:00 04/27/21 15:30 Pulse Rate 74 78 82 Respiratory Rate 25 H 19 20 Blood Pressure 191/81 H 173/74 H 189/82 H Pulse Oximetry 98 92 92 04/27/21 16:00 04/27/21 16:01 Pulse Rate 85 85 Respiratory Rate 34 H 26 H Blood Pressure 178/69 H Pulse Oximetry 94 94 MDM - Nausea/Vomiting/Diarrhea Lab Data Result diagrams: 04/27/21 13:30 04/27/21 13:30 Labs: Lab Results 04/27/21 04/27/21 04/27/21 Range/Units 13:30 13:30 13:30 WBC 8.0 (4.5-11.0) X10^3/uL RBC 4.26 (4.0-5.2) X10^6/uL Hgb 12.9 (12.0-16.0) g/dL Hct 39.0 (36-46) % MCV 91.6 (80-100) fL MCH 30.3 (26-34) PG MCHC 33.1 (30-36) % RDW 13.6 (11.6-14.8) % Plt Count 161 (150-400) X10^3/uL Neut % (Auto) 90.7 H (50-75) % Lymph % (Auto) 5.1 L (25-40) % [place]arro % (Auto) 3.7 (3-14) % Eos % (Auto) 0.0 L (2-4) % Baso % (Auto) 0.5 (0-2) % Neut # (Auto) 7200 H (3215-1138) /uL Lymph # (Auto) 400 L (2122-2266) /uL [place]arro # (Auto) 300 (0-900) /uL Eos # (Auto) 0 (0-450) /uL Baso # (Auto) 0 (0-100) /uL Sodium 131 L (137-145) mmol/L Potassium 4.3 (3.4-5.1) mmol/L Chloride 95 L (98-107) mmol/L Carbon Dioxide 29 (22-32) mmol/L BUN 25 H (7-17) mg/dL Creatinine 0.65 Cancelled (0.52-1.04) mg/dL Estimated GFR > 60.0 Cancelled (>60) mL/min BUN/Creatinine Ratio 38.5 H (6-22) Glucose 162 H (80-110) mg/dL Calcium 10.3 H (8.4-10.2) mg/dL Total Bilirubin 1.0 (0.2-1.3) mg/dL AST 36 (14-36) IU/L ALT 27 (<35) IU/L Alkaline Phosphatase 78 (38-126) U/L Total Creatine Kinase 83 (30-135) U/L CK-MB (CK-2) TNP CK-MB (CK-2) Rel Index TNP Troponin I < 0.012 (0.01-0.034) ng/mL NT-Pro-B Natriuret Pep (<450) pg/mL Total Protein 8.9 H (6.3-8.2) g/dL Albumin 4.6 (3.5-5.0) g/dL Globulin 4.3 H (1.7-4.1) g/dL Albumin/Globulin Ratio 1.1 (1.0-2.8) Lipase 130 (23-300) U/L Urine Color Urine Appearance Urine pH (4.5-8.0) Ur Specific [place] (1.000-1.035) Urine Protein (Negative) Urine Glucose (UA) (Negative) g/dL Urine Ketones (NEGATIVE) Urine Occult Blood (Negative) Urine Nitrate (Negative) Urine Bilirubin (NEGATIVE) Urine Urobilinogen (0.2) E.U./dL Ur Leukocyte Esterase (NEGATIVE) Urine RBC (0-5/HPF) Urine WBC (0-5/HPF) Ur Squamous Epith Cells (0-5/HPF) Urine Bacteria (None) Ur Culture Indicated? 04/27/21 04/27/21 Range/Units 13:30 15:38 WBC (4.5-11.0) X10^3/uL RBC (4.0-5.2) X10^6/uL Hgb (12.0-16.0) g/dL Hct (36-46) % MCV (80-100) fL MCH (26-34) PG MCHC (30-36) % RDW (11.6-14.8) % Plt Count (150-400) X10^3/uL Neut % (Auto) (50-75) % Lymph % (Auto) (25-40) % [place] % (Auto) (3-14) % Eos % (Auto) (2-4) % Baso % (Auto) (0-2) % Neut # (Auto) (0741-6255) /uL Lymph # (Auto) (5935-6124) /uL [place] # (Auto) (0-900) /uL Eos # (Auto) (0-450) /uL Baso # (Auto) (0-100) /uL Sodium (137-145) mmol/L Potassium (3.4-5.1) mmol/L Chloride (98-107) mmol/L Carbon Dioxide (22-32) mmol/L BUN (7-17) mg/dL Creatinine (0.52-1.04) mg/dL Estimated GFR (>60) mL/min BUN/Creatinine Ratio (6-22) Glucose (80-110) mg/dL Calcium (8.4-10.2) mg/dL Total Bilirubin (0.2-1.3) mg/dL AST (14-36) IU/L ALT (<35) IU/L Alkaline Phosphatase (38-126) U/L Total Creatine Kinase (30-135) U/L CK-MB (CK-2) CK-MB (CK-2) Rel Index Troponin I (0.01-0.034) ng/mL NT-Pro-B Natriuret Pep 2540 H (<450) pg/mL Total Protein (6.3-8.2) g/dL Albumin (3.5-5.0) g/dL Globulin (1.7-4.1) g/dL Albumin/Globulin Ratio (1.0-2.8) Lipase (23-300) U/L Urine Color Yellow Urine Appearance Sl cloudy Urine pH 7.0 (4.5-8.0) Ur Specific [place] 1.020 (1.000-1.035) Urine Protein 1+ H (Negative) Urine Glucose (UA) Negative (Negative) g/dL Urine Ketones 1+ H (NEGATIVE) Urine Occult Blood 1+ H (Negative) Urine Nitrate Negative (Negative) Urine Bilirubin Negative (NEGATIVE) Urine Urobilinogen 0.2 (0.2) E.U./dL Ur Leukocyte Esterase 2+ H (NEGATIVE) Urine RBC 0-1/hpf (0-5/HPF) Urine WBC 5-10/hpf H (0-5/HPF) Ur Squamous Epith Cells None seen (0-5/HPF) Urine Bacteria Many (>30) H (None) Ur Culture Indicated? Specimen cultured Point of Care Testing Stool Occult Blood Negative Imaging Data Chest x-ray: Radiologist's Impression: PROCEDURE: XR CHEST 1V INDICATIONS: chest pain TECHNIQUE: One view of the chest was acquired. COMPARISON: [facility], , XR CHEST 2V, 12/18/2019, 15:33. FINDINGS: Surgical changes and devices: None. Lungs and pleura: Left basilar atelectasis is seen. No focal infiltrate. No pleural effusions or pneumothorax. Mediastinum: Aortic arch calcifications are seen.. Heart size is enlarged. Bones and chest wall: No suspicious bony lesions. Overlying soft tissues appear unremarkable. IMPRESSION: Left basilar atelectasis. No focal infiltrate, significant pleural effusion or pneumothorax. Dictated by: Eduar Burleson M.D. on 04/27/2021 at 14:48 Approved by: Eduar Burleson M.D. on 04/27/2021 at 14:49 ECG Data Interpretation: EKG 1. Sinus rhythm although widened complex with left bundle- branch block no ST changes p.r. interval 198 QRS 154 QTC 536 EKG 2. Persistent left bundle branch sinus rhythm rate 78 EKG 3. Normal sinus rhythm rate 76 p.r. interval 200 QRS [address] changes or T-wave inversions no left bundle branch block MDM Narrative Medical decision making narrative: Patient is having gastroenteritis symptoms with loose stool and nausea vomiting. She has no abdominal pain. At this time I see no need for abdominal imaging. She is not having any chest pain or palpitations however she is going in and out of a left bundle-branch block. Troponin is negative. She does have a history of congestive heart failure. BNP is 2500 but no clinical symptoms of congestive heart failure She is also found have a UTI. I will start her on antibiotics for that at this time. She is given oral rehydration instructions and when to return to the emergency department she overall is feeling better. Discharge Plan Departure Patient Disposition: Home Clinical Impression: Gastroenteritis, Acute UTI Instructions: DI for Viral Gastroenteritis -- Adult, DI for Urinary Tract Infection (UTI) Activity Restrictions/Additional Instructions: *You have been diagnosed with gastroenteritis and bladder infection *What to do: At this time her having diarrhea and nausea likely from the gastroenteritis. However your also found to have a bladder infection. Increase fluid intake as tolerated recommend water, juice, Gatorade or broth may increase diet as tolerated with toast or crackers *Continue to take medications as directed--> [facility] [employer] DO NOT TAKE ZOFRAN/ODANSETRON Reglan 5-10 mg every 6 hours if needed for nausea or vomiting Keflex 500 mg twice a day for 5 days for bladder infection *Follow up with your primary care provider in 2-3 days *Return to ER if you should have persistent vomiting, abdominal pain, fever or confusion or any new, worsening or concerning symptoms Prescriptions: New metoclopramide HCl [Reglan] 5 mg tablet 5 mg PO Q6H PRN (Reason: nausea and vomiting) Qty: 10 RF: 0 cephalexin 500 mg capsule 500 mg PO BID 5 Days Qty: 10 RF: 0 No Action amlodipine 2.5 mg tablet 2.5 mg PO DAILY RF: 0 simvastatin 5 mg tablet 5 mg PO DAILY RF: 0 nadolol 40 mg tablet 40 mg PO DAILY RF: 0 Eliquis 2.5 mg tablet 2.5 mg PO BID RF: 0 ondansetron HCl [Zofran] 4 mg tablet 4 mg PO BID-TID PRN (Reason: nausea and vomiting) Qty: 14 RF: 0 Referrals: Pardeep Pizarro MD [Primary Care Provider] -
[2021-04-27] MEDS: PANTOPRAZOLE 40 MG VIAL IV (14:18)
[2021-04-27] MEDS: METOCLOPRAMIDE 10 MG/2 ML INJ IV (14:18)
[2021-04-27] MEDS: SODIUM CHLORIDE 0.9% 1,000 ML 1000 ML IV (14:20)
[2021-04-27 15:42] LABS: NT-proBNP (BNP-Adult 18+) 2540 pg/mL (<450)
[2021-04-27 15:49] LABS: Appearance Urine UA SL CLOUDY; Bilirubin Urine UA NEGATIVE (NEGATIVE); Color Urine UA YELLOW; Glucose Urine UA NEGATIVE (Negative); Ketones Urine UA 1+ (NEGATIVE); Leukocyte Esterase Urine UA 2+ (NEGATIVE); Nitrite Urine UA NEGATIVE (Negative); Occult Blood Urine UA 1+ (Negative); Protein Urine UA 1+ (Negative); Urobilinogen Urine UA 0.2 E.U./dL (0.2)
[2021-04-27 16:03] LABS: RBC Urine 0-1/HPF (0-5/HPF)
[2021-04-27 16:04] LABS: Bacteria Urine Many (>30); Culture Indicated Urine Specimen Cultured; Squamous Epithelial Cell Urine None Seen (0-5/HPF); WBC Urine 5-10/HPF (0-5/HPF)
--- NOTE | 2021-04-27 16:10 | PC.NURSE ---
patient eating crackers and taking fluids without nausea or vomiting
== END 2021-04-27 18:12 | disposition home or self-care (01) ==
PROVIDERS: Emergency Provider Emergency Medicine; PCP Internal Medicine
DX: K52.9 Noninfective gastroenteritis and colitis, unspecified (principal); N39.0 Urinary tract infection, site not specified; R07.9 Chest pain, unspecified
CPT/HCPCS: 36415; 71045; 80053; 81001; 82272; 82550; 83690; 83880; 84484; 85025; 87077; 87086; 93005; 99284; C9113; J2765

== ENCOUNTER 2021-04-28 19:56 | Inpatient (IN) | payer MEDICARE, OTHER, SELFPAY ==
[2021-04-28] VITALS (16 sets, daily range): BP systolic 127–220; BP diastolic 63–115; PULSE 69–84; RESP 14–37; TEMP 36.3; O2SAT 90–99; BMI 22.6
--- NOTE | 2021-04-28 21:17 | DI.RAD.S_ITS ---
PROCEDURE: XR CHEST 1V INDICATIONS: shortness of breath TECHNIQUE: One view of the chest was acquired. COMPARISON: [facility], CR, XR CHEST 1V, 04/27/2021, 13:38. [facility], CR, XR CHEST 2V, 12/18/2019, 15:33. FINDINGS: Surgical changes and devices: None. Lungs and pleura: Lungs are abnormal, with patchy bilateral interstitial prominence and pneumonia pattern, greater on the left than the right and at the medial right lung base.. No pleural effusions or pneumothorax. Mediastinum: Mediastinal contours appear normal. Heart size is at the upper limits of normal.. Bones and chest wall: No suspicious bony lesions. Overlying soft tissues appear unremarkable. IMPRESSION: Chronic interstitial prominence, chronic mild cardiomegaly, new finding of bilateral alveolar infiltration left greater than right to the degree that atypical/viral pneumonia should be considered. Dictated by: Tim Hawthorne M.D. on 04/28/2021 at 22:22 Approved by: Tim Hawthorne M.D. on 04/28/2021 at 22:22
--- NOTE | 2021-04-28 21:28 | ED_ITS ---
HPI - Nausea/Vomiting/Diarrhea General Chief complaint: Nausea/Vomiting/Diarrhea Stated complaint: not getting any better Time Seen by Provider: 04/28/21 21:17 Source: patient Mode of arrival: Wheelchair Limitations: other History of Present Illness HPI Narrative: Patient is a 80-year-old female who was seen in the emergency department yesterday and was diagnosed with the urinary tract infection. She was sent home on antibiotics. Since that time she states that she continues to feel very poorly. Has had nausea. Has been unable to take her medications. Denies chest pain or shortness of breath. Denies any fevers. Returns emergency department because she does not feel improved Related Data Home Medications Medication Instructions Recorded Confirmed amlodipine 2.5 mg tablet 2.5 mg PO DAILY 02/05/19 04/28/21 apixaban 2.5 mg tablet 2.5 mg PO BID 02/05/19 04/28/21 nadolol 40 mg tablet 40 mg PO DAILY 02/05/19 04/28/21 nitrofurantoin 100 mg PO BID 04/28/21 04/28/21 monohydrate/macrocrystals 100 mg capsule simvastatin 5 mg tablet 5 mg PO DAILY 04/28/21 04/28/21 vitamin K2 100 mcg capsule 100 mcg PO DAILY 04/28/21 04/28/21 Allergies Allergy/AdvReac Type Severity Reaction Status Date / Time calcium carbonate Allergy Verified 04/28/21 23:32 [From Excedrin Back and Body] ergotamine Allergy Verified 04/28/21 23:32 Penicillins Allergy Nausea Verified 04/28/21 23:32 Sulfa (Sulfonamide Allergy Verified 04/28/21 23:32 Antibiotics) aspirin AdvReac Verified 04/28/21 23:32 [From Excedrin Back and Body] clindamycin AdvReac Verified 04/28/21 23:32 ferrous sulfate AdvReac Verified 04/28/21 23:32 guaifenesin AdvReac Verified 04/28/21 23:32 NSAIDS (Non-Steroidal AdvReac Verified 04/28/21 23:32 Anti-Inflamma sulfamethoxazole AdvReac Verified 04/28/21 23:32 [From Sulfamethoxazole-Trimethoprim] trimethoprim AdvReac Verified 04/28/21 23:32 [From Sulfamethoxazole-Trimethoprim] Review of Systems Constitutional Constitutional: Denies fever(s) and Denies headache(s) Eyes Eyes: Denies change in vision ENT Ears, Nose, Mouth, and Throat: Reports system reviewed and no additional complaints, except as documented and Denies headache(s) Cardiovascular Cardiovascular: Denies chest pain and Denies dyspnea Respiratory Respiratory: Denies dyspnea Gastrointestinal Gastrointestinal: Denies abdominal pain, Denies nausea and Denies vomiting Genitourinary Genitourinary: Reports system reviewed and no additional complaints, except as documented Musculoskeletal Musculoskeletal: Denies back pain Integumentary/Breasts Skin/Breast: Reports system reviewed and no additional complaints, except as documented Neurologic Neurologic: Denies headache(s) Psychiatric Psychiatric: Reports system reviewed and no additional complaints, except as documented Endocrine Endocrine: Reports system reviewed and no additional complaints, except as documented Hematologic/Lymphatic On Anticoagulants: Yes Allergic/Immunologic Allergic/Immunologic: Denies urticaria Patient History Medical History Hypertension Social History lives independently: Yes Smoking Status: Never smoker Smoking Status: Never smoker Substance Use Type: does not use Exam Initial Vital Signs Initial Vital Signs: Vital Signs Temperature 97.4 F L 04/28/21 20:17 Pulse Rate 79 04/28/21 20:17 Respiratory Rate 14 04/28/21 20:17 Blood Pressure 210/86 H 04/28/21 20:17 Pulse Oximetry 98 04/28/21 20:17 Const General: cooperative HENMT Head: normal to inspection and normocephalic Eyes General: appearance normal, both eyes and all related structures Chest Chest: normal inspection of the chest Resp Effort & Inspection: labored and tachypneic Auscultation: diminished lung sounds, rhonchi and wheezes Cardio Rate: regular rate Rhythm: regular rhythm GI Inspection: normal to inspection Palpation: soft and No tender Back/Spine/Pelvis Back: normal to inspection Skin General: no rashes or lesions noted Neuro General: patient alert and patient awake Extrem General: capillary refill normal Psych Appearance: grossly normal and well kempt Course Orders Ordered: ED Orders 04/29/21 NM jorge l perf SPECT rest & str Stat 04/29/21 00:22 Troponin & CK Cardiac Panel Stat 04/29/21 02:00 EC echo doppler complete Stat 04/29/21 03:37 EKG-12 Lead Stat 04/29/21 04:02 Troponin & CK Cardiac Panel Stat 04/29/21 04:42 Comprehensive Metabolic Panel Urgent Magnesium Urgent 04/29/21 04:47 Complete Blood Count AUTO DIFF Urgent Sodium Chloride (Normal Saline 0.9%) 1,000 mls @ 80 mls/hr IV CONT CHELO Last Admin: 04/29/21 05:23 Dose: 80 mls/hr Documented by: CTRNAGA Discontinued Medications Albuterol (Albuterol 2.5 Mg/3 Ml Neb (Adult)) 2.5 mg INH NOW ONE Stop: 04/28/21 22:38 Last Admin: 04/28/21 22:52 Dose: 2.5 mg Documented by: ESTRELLA Albuterol/Ipratropium (Albuterol/Ipratropium 3 Ml Ampul) 3 ml INH NOW ONE Stop: 04/28/21 21:19 Last Admin: 04/28/21 21:55 Dose: 3 ml Documented by: ESTRELLA Amlodipine Besylate (Amlodipine 5 Mg Tablet) 2.5 mg PO NOW ONE Stop: 04/28/21 21:32 Last Admin: 04/28/21 21:43 Dose: 2.5 mg Documented by: ERIC Furosemide (Furosemide 40 Mg/4 Ml Vial) 40 mg IV NOW ONE Stop: 04/28/21 22:21 Last Admin: 04/28/21 22:30 Dose: 40 mg Documented by: ERIC Nitroglycerin (Nitroglycerin Oint 1 Inch/Gm Oint...G.) 1 inch TOP NOW ONE Stop: 04/28/21 21:30 Last Admin: 04/28/21 21:42 Dose: 1 inch Documented by: ERIC Vital Signs Vital signs: Vital Signs - 8 hr 04/28/21 23:25 04/28/21 23:30 04/29/21 00:00 Pulse Rate 74 71 69 Respiratory Rate 23 21 19 Blood Pressure 219/86 H 152/71 H 127/61 Pulse Oximetry 94 96 94 04/29/21 00:30 04/29/21 01:00 04/29/21 01:30 Pulse Rate 69 66 68 Respiratory Rate 17 16 16 Blood Pressure 126/60 102/53 L 131/79 Pulse Oximetry 93 94 96 04/29/21 02:00 04/29/21 02:30 Pulse Rate 68 65 Respiratory Rate 15 16 Blood Pressure 105/55 L 103/54 L Pulse Oximetry 94 95 MDM - Nausea/Vomiting/Diarrhea Medical Records Attestation: I reviewed the patient's medical records. Lab Data Attestation: I reviewed the patient's lab results. Result diagrams: 04/28/21 21:26 04/29/21 04:42 Labs: Lab Results 04/28/21 04/28/21 04/28/21 Range/Units 21:15 21:26 21:26 WBC 12.5 H D (4.5-11.0) X10^3/uL RBC 4.33 (4.0-5.2) X10^6/uL Hgb 13.0 (12.0-16.0) g/dL Hct 39.4 (36-46) % MCV 91.1 (80-100) fL MCH 30.1 (26-34) PG MCHC 33.0 (30-36) % RDW 13.4 (11.6-14.8) % Plt Count 167 (150-400) X10^3/uL Neut % (Auto) 91.5 H (50-75) % Lymph % (Auto) 3.9 L (25-40) % [place] % (Auto) 4.4 (3-14) % Eos % (Auto) 0.0 L (2-4) % Baso % (Auto) 0.2 (0-2) % Neut # (Auto) 16226 H (5624-8351) /uL Lymph # (Auto) 500 L (5264-2467) /uL [place] # (Auto) 600 (0-900) /uL Eos # (Auto) 0 (0-450) /uL Baso # (Auto) 0 (0-100) /uL ABG pH (7.35-7.45) ABG pCO2 (35-45) mmHg ABG pO2 (80-100) mmHg ABG HCO3 (22-26) mmol/L ABG Total CO2 (21-31) mmol/L ABG O2 Saturation (95-100) % ABG Base Excess (-2-2) mmol/L FiO2 Sodium 125 L (137-145) mmol/L Potassium 4.0 (3.4-5.1) mmol/L Chloride 91 L (98-107) mmol/L Carbon Dioxide 26 (22-32) mmol/L BUN 24 H (7-17) mg/dL Creatinine 0.54 (0.52-1.04) mg/dL Estimated GFR > 60.0 (>60) mL/min BUN/Creatinine Ratio 44.4 H (6-22) Glucose 184 H (80-110) mg/dL Calcium 9.9 (8.4-10.2) mg/dL Magnesium (1.6-2.3) mg/dL Total Bilirubin 1.4 H (0.2-1.3) mg/dL AST 37 H (14-36) IU/L ALT 25 (<35) IU/L Alkaline Phosphatase 77 (38-126) U/L Total Creatine Kinase 87 (30-135) U/L CK-MB (CK-2) TNP CK-MB (CK-2) Rel Index TNP Troponin I 0.023 (0.01-0.034) ng/mL NT-Pro-B Natriuret Pep 3490 H (<450) pg/mL Total Protein 8.4 H (6.3-8.2) g/dL Albumin 4.5 (3.5-5.0) g/dL Globulin 3.9 (1.7-4.1) g/dL Albumin/Globulin Ratio 1.2 (1.0-2.8) Lipase 69 (23-300) U/L Procalcitonin < 0.03 (<0.5) ng/mL SARS-CoV-2 (PCR) Negative (Negative) 04/28/21 04/28/21 04/29/21 Range/Units 21:40 22:03 00:22 WBC (4.5-11.0) X10^3/uL RBC (4.0-5.2) X10^6/uL Hgb (12.0-16.0) g/dL Hct (36-46) % MCV (80-100) fL MCH (26-34) PG MCHC (30-36) % RDW (11.6-14.8) % Plt Count (150-400) X10^3/uL Neut % (Auto) (50-75) % Lymph % (Auto) (25-40) % [place] % (Auto) (3-14) % Eos % (Auto) (2-4) % Baso % (Auto) (0-2) % Neut # (Auto) (8684-0171) /uL Lymph # (Auto) (5286-5417) /uL [place] # (Auto) (0-900) /uL Eos # (Auto) (0-450) /uL Baso # (Auto) (0-100) /uL ABG pH 7.43 (7.35-7.45) ABG pCO2 43.5 (35-45) mmHg ABG pO2 62 L (80-100) mmHg ABG HCO3 29 H (22-26) mmol/L ABG Total CO2 30 (21-31) mmol/L ABG O2 Saturation 92 L (95-100) % ABG Base Excess 5.0 H (-2-2) mmol/L FiO2 24 Sodium (137-145) mmol/L Potassium (3.4-5.1) mmol/L Chloride (98-107) mmol/L Carbon Dioxide (22-32) mmol/L BUN (7-17) mg/dL Creatinine (0.52-1.04) mg/dL Estimated GFR (>60) mL/min BUN/Creatinine Ratio (6-22) Glucose (80-110) mg/dL Calcium (8.4-10.2) mg/dL Magnesium (1.6-2.3) mg/dL Total Bilirubin (0.2-1.3) mg/dL AST (14-36) IU/L ALT (<35) IU/L Alkaline Phosphatase (38-126) U/L Total Creatine Kinase 62 (30-135) U/L CK-MB (CK-2) TNP CK-MB (CK-2) Rel Index TNP Troponin I 0.050 H (0.01-0.034) ng/mL NT-Pro-B Natriuret Pep (<450) pg/mL Total Protein (6.3-8.2) g/dL Albumin (3.5-5.0) g/dL Globulin (1.7-4.1) g/dL Albumin/Globulin Ratio (1.0-2.8) Lipase (23-300) U/L Procalcitonin (<0.5) ng/mL SARS-CoV-2 (PCR) Negative (Negative) 04/29/21 04/29/21 Range/Units 04:02 04:42 WBC (4.5-11.0) X10^3/uL RBC (4.0-5.2) X10^6/uL Hgb (12.0-16.0) g/dL Hct (36-46) % MCV (80-100) fL MCH (26-34) PG MCHC (30-36) % RDW (11.6-14.8) % Plt Count (150-400) X10^3/uL Neut % (Auto) (50-75) % Lymph % (Auto) (25-40) % [place] % (Auto) (3-14) % Eos % (Auto) (2-4) % Baso % (Auto) (0-2) % Neut # (Auto) (2284-0256) /uL Lymph # (Auto) (7419-2235) /uL [place] # (Auto) (0-900) /uL Eos # (Auto) (0-450) /uL Baso # (Auto) (0-100) /uL ABG pH (7.35-7.45) ABG pCO2 (35-45) mmHg ABG pO2 (80-100) mmHg ABG HCO3 (22-26) mmol/L ABG Total CO2 (21-31) mmol/L ABG O2 Saturation (95-100) % ABG Base Excess (-2-2) mmol/L FiO2 Sodium 127 L (137-145) mmol/L Potassium 3.7 (3.4-5.1) mmol/L Chloride 94 L (98-107) mmol/L Carbon Dioxide 25 (22-32) mmol/L BUN 28 H (7-17) mg/dL Creatinine 0.68 (0.52-1.04) mg/dL Estimated GFR > 60.0 (>60) mL/min BUN/Creatinine Ratio 41.2 H (6-22) Glucose 128 H (80-110) mg/dL Calcium 9.7 (8.4-10.2) mg/dL Magnesium 1.9 (1.6-2.3) mg/dL Total Bilirubin 1.2 (0.2-1.3) mg/dL AST 33 (14-36) IU/L ALT 24 (<35) IU/L Alkaline Phosphatase 60 (38-126) U/L Total Creatine Kinase 61 (30-135) U/L CK-MB (CK-2) TNP CK-MB (CK-2) Rel Index TNP Troponin I 0.053 H (0.01-0.034) ng/mL NT-Pro-B Natriuret Pep (<450) pg/mL Total Protein 7.4 (6.3-8.2) g/dL Albumin 3.9 (3.5-5.0) g/dL Globulin 3.5 (1.7-4.1) g/dL Albumin/Globulin Ratio 1.1 (1.0-2.8) Lipase (23-300) U/L Procalcitonin (<0.5) ng/mL SARS-CoV-2 (PCR) (Negative) Urine Dip Bedside Urine Glucose 100 mg/dl Bedside Urine Bilirubin - Negative Bedside Urine Ketone +/- 5 Urine Specific [place] 1.025 Bedside Urine Occult Blood +/- Bedside Urine pH 6 Bedside Urine Protein + 30 Bedside Urine Urobilinogen - Negative Bedside Urine Nitrite - Negative Bedside Urine Leukocytes + 70 Esterase Imaging Data Chest x-ray: Radiologist's Impression: [address] [id number] ReportSigned Patient: Maame Sanchez IMR#: [id number]: [id number]:[id number]/Sex: 80 / FDate of Service: 04/27/21Loc: EDAccession Number: [id number] Procedure: XR chest 1V Ordering Provider: Katie Ko D.O. PROCEDURE: XR CHEST 1V INDICATIONS: chest pain TECHNIQUE: One view of the chest was acquired. COMPARISON: [facility], , XR CHEST 2V, 12/18/2019, 15:33. FINDINGS: Surgical changes and devices: None. Lungs and pleura: Left basilar atelectasis is seen. No focal infiltrate. No pleural effusions or pneumothorax. Mediastinum: Aortic arch calcifications are seen.. Heart size is enlarged. Bones and chest wall: No suspicious bony lesions. Overlying soft tissues appear unremarkable. IMPRESSION: Left basilar atelectasis. No focal infiltrate, significant pleural effusion or pneumothorax. Dictated by: Eduar Burleson M.D. on 04/27/2021 at 14:48 Approved by: Eduar Burleson M.D. on 04/27/2021 at 14:49 ECG Data Attestation: I personally reviewed and interpreted this ECG as follows: Prior ECG tracings: available for review Interpretation: Sinus rhythm Ventricular rate 80 Left bundle branch block QRS 160 milliseconds QTC 548 milliseconds EKG performed at 0330 hours Sinus rhythm Left bundle branch block Unchanged from EKG upon arrival MDM Narrative Medical decision making narrative: Patient initially arrived stating that she did not feel better after being discharged from the emergency department yesterday. She has not been able to take any of her medications because of nausea and generally not feeling very well. In triage patient was not have any respiratory distress. Was noted to be hypertensive. Patient was then transported to a room and I was called to come and evaluate the patient. She remained hypertensive and was in respiratory distress. She had very diminished breath sounds bilaterally. She was not having any chest discomfort. She states she did not take her blood pressure medicines yesterday because of the way that she was feeling. An EKG was obtained shows left bundle-branch block. There was reports of left bundle branch block on prior EKGs. Her chest x-ray does not show pulmonary edema. Her BNP is only slightly more elevated compared to yesterday. She does have a history of CHF. She does not have a lower extremity swelling. She did tell respiratory therapy that she has a distant history of asthma but takes no current medications. She was given 1 sublingual nitro and then nitro paste was placed on her chest. This did improve her blood pressure. She was also given nebulizer treatments. All of these treatments seem to resolve her respiratory distress. She did have a slight elevation in her troponin. Given her clinical presentation I do feel the need to admit to the hospital for continued risk stratification testing secondary to hypertensive emergency. There were no beds available at our facility so the patient was boarded in the emergency department. During her stay in the emergency department there was an episode where monitored showed a tachycardia. Went into evaluate the patient. She had no symptoms at the time. Repeat EKG was obtained which showed no change from prior EKG. I suspect that the tachycardia was the monitor picking up the left bundle branch block as extra beats and mistakenly read this is tachycardia. Discussed the case with hospitalist in the morning will admit for further evaluation treatment. Discussed the case with Dr. [place]. Will continue with admission Discharge Plan Departure Patient Disposition: Admitted As Inpatient Clinical Impression: Hypertensive emergency, Urinary tract infection, Left bundle branch block
[2021-04-28] MEDS: NITROGLYCERIN 0.4 MG SL TAB SL (21:33)
[2021-04-28 21:37] LABS: COVID19 -Nasal RAPID Negative (Negative)
[2021-04-28 21:39] LABS: Add Manual Diff / Slide Review NO; Basophils Absolute Auto 0 /uL (0-100); Basophils Percent Auto 0.2 % (0-2); Eosinophils Absolute Auto 0 /uL (0-450); Hematocrit 39.4 % (36-46); Lymphocytes Absolute Auto 500 /uL (1100-4500); Lymphocytes Percent Auto 3.9 % (25-40); Mean Corpuscular Hemoglobin 30.1 PG (26-34); Mean Corpuscular Volume 91.1 fL (80-100); Monocytes Absolute Auto 600 /uL (0-900); Monocytes Percent Auto 4.4 % (3-14); Neutrophils Absolute Auto 11500 /uL (1500-7000); Neutrophils Percent Auto 91.5 % (50-75); Platelet Count 167 X10^3/uL (150-400); Red Blood Cell Count 4.33 X10^6/uL (4.0-5.2); Red Cell Distribution Width 13.4 % (11.6-14.8); White Blood Cell Count 12.5 X10^3/uL (4.5-11.0)
[2021-04-28] MEDS: NITROGLYCERIN OINT 1 INCH/GM OINT...G. TOP (21:42)
[2021-04-28] MEDS: AMLODIPINE 5 MG TABLET 2.5 MG PO (21:43)
[2021-04-28 21:53] LABS: Alanine Aminotransferase 25 IU/L (<35); Albumin 4.5 g/dL (3.5-5.0); Albumin Globulin Ratio 1.2 (1.0-2.8); Alkaline Phosphatase 77 U/L (38-126); Aspartate Aminotransferase 37 IU/L (14-36); BUN Creatinine Ratio 44.4 (6-22); Bilirubin Total 1.4 mg/dL (0.2-1.3); Blood Urea Nitrogen 24 mg/dL (7-17); Calcium 9.9 mg/dL (8.4-10.2); Carbon Dioxide 26 mmol/L (22-32); Chloride 91 mmol/L (98-107); Creatine Kinase 87 U/L (30-135); Estimated Glomerular Filt Rate > 60.0 mL/min (>60); Globulin 3.9 g/dL (1.7-4.1); Glucose 184 mg/dL (80-110); HEMOLYSIS < 15 (0-50); Lipase 69 U/L (23-300); Sodium 125 mmol/L (137-145); Total Protein 8.4 g/dL (6.3-8.2)
[2021-04-28] MEDS: ALBUTEROL/IPRATROPIUM 3 ML AMPUL INH (21:55)
--- NOTE | 2021-04-28 21:55 | PC.NURSE ---
2107 registration called RN to come to waiting room, caregiver was concerned about pt's breathing. This RN went to with SPO2 to check on patient. Pt was 95% but was noted to be using accessory muscles and tight chest. Brought patient to room 12 and listened to lungs. Called RT to eval and treat. Pt stated she had asthma but has not had any problems in years, pt also reported that her initial complaint was NVD. Did not have SOB during initial triage. RT came and evaluated pt and we agreed pt was tight and wheezy so a duoneb order was received and while starting IV RT and this RN noticed pt's breathing became wet. Dr Moreno called to the room and at that time patient stated her jaw was uncomfortable. Orders received and initiated. Continuing to evaluate.
[2021-04-28 22:05] LABS: NT-proBNP (BNP-Adult 18+) 3490 pg/mL (<450); Troponin I 0.023 ng/mL (0.01-0.034)
[2021-04-28 22:10] LABS: Procalcitonin < 0.03 ng/mL (<0.5)
[2021-04-28 22:27] LABS: HCO3 ABG 29 mmol/L (22-26); Oxygen Saturation ABG 92 % (95-100); PCO2 ABG 43.5 mmHg (35-45); PO2 ABG 62 mmHg (80-100); TCO2 ABG 30 mmol/L (21-31); pH ABG 7.43 (7.35-7.45)
[2021-04-28 22:28] LABS: Fractionated Inspired Oxygen 24
[2021-04-28] MEDS: FUROSEMIDE 40 MG/4 ML VIAL IV (22:30)
[2021-04-28] MEDS: ALBUTEROL 2.5 MG/3 ML NEB (ADULT) INH (22:52)
[2021-04-28 23:06] LABS: COVID19 - ADMIT (NP swab/PCR) Negative (Negative)
[2021-04-29] VITALS (34 sets, daily range): BP systolic 102–188; BP diastolic 53–81; PULSE 63–87; RESP 12–25; TEMP 37–37.4; O2SAT 93–98; BMI 22.6
[2021-04-29 00:41] LABS: Creatine Kinase 62 U/L (30-135)
--- NOTE | 2021-04-29 02:00 | DI.ECHO.S_ITS ---
[facility] +---------+ : : [address] : : : : [place] : : : : [place], : : : : [place] [id number] : : : : Phone: [phone] [facility]-[phone] Echocardiogram Report + + :Name: VALENTIN HERNANDEZ I Study Date: 04/29/2021 Height: 66 in : :[facility] ReadingLocation: Weight: 140 lb : : Gender: Female BSA: 1.7 m2 : :: 1940 Age: 80 yrs BP: 131/79 mmHg: :Reason For Study: HYPERTENSIVE URGENCY : :Ordering Physician: SAMEER, : :COCO Performed By: Yaima Mead : :Referring: COCO ESTRELLA : + + Interpretation Summary 1) Mildly increased left ventricular thickness (concentric), with normal size, normal wall motion, and normal systolic function (EF 60-65%). 2) Normal right ventricular size and function. 3) Severe left atrial enlargement present. 4) There is mild aortic stenosis (valve area 1.5cm2, mean gradient 21mmHg). 5) There is moderate to severe aortic regurgitation. 6) Compared to the Echo done 01/18/2021, no significant change. Procedure: A two-dimensional transthoracic echocardiogram with color flow and Doppler was performed. The study quality was technically adequate. Comparison is made with the echocardiogram of 01/18/2019. The patient was in sinus rhythm with heart rates between 65-75 bpm during the exam. Left Ventricle: The left ventricle is normal in size. Left ventricular wall thickness is mildly increased. The ejection fraction is estimated to be 60- 65%. Left ventricular systolic function appears normal without focal wall motion abnormalities. Diastolic parameters suggest a pseudonormalization pattern, consistent with probable elevated filling pressures. Right Ventricle: The right ventricle is normal size. The right ventricular systolic function is normal. Atria: The left atrium is severely dilated. The right atrium is mildly dilated. There is no Doppler evidence for an interatrial shunt. Mitral Valve: There is moderate mitral annular calcification. The mitral valve leaflets appear mildly thickened, but open well. There is mild mitral regurgitation. Aortic Valve: The aortic valve is mildly calcified. There is mild aortic stenosis. The peak aortic velocity is 2.97 m/sec. The aortic valve mean gradient is 21 mmHg. The calculated aortic valve area is 1.5 cm2. There is moderate to severe aortic regurgitation. Tricuspid Valve: The tricuspid valve is normal in structure and function. There is mild tricuspid regurgitation. The right ventricular systolic pressure is estimated to be at least 27 mmHg based on an estimated right atrial pressure of 3 mm Hg. Pulmonic Valve: The pulmonic valve is not well visualized. There is no pulmonic valvular regurgitation. Great Vessels: The aortic root is normal size. The ascending aorta is mildly enlarged. The IVC is of normal diameter and collapses greater than 50% with a sniff. This suggests a low right atrial pressure of 3 mm Hg. Pericardium/ Pleura There is no pericardial effusion. There is no pleural effusion. MMode/2D Measurements & Calculations LVIDd: 4.6 cm LVOT diam: 2.0 cm LVIDs: 3.3 cm Ao root diam: 3.7 cm IVSd: 1.0 cm asc Aorta Diam: 3.9 cm LVPWd: 1.1 cm Ao Arch Diam (Prox Trans): 3.0 cm LV green. diameter/BSA (cm/m^2): 2.7 LV sys. diameter/BSA (cm/m^2): 1.9 FS: 29.0 % LA A2 area: 33.4 cm2 RA long axis: 5.8 cm LA A4 area: 23.5 cm2 RA area: 19.8 cm2 LA length (vol): 6.7 cm RA vol: 57.5 ml LA vol: 99.7 ml RA : 33.5 ml/m2 LA vol index: 58.0 ml/m2 RVD1 (basal): 3.3 cm IVC diam: 0.84 cm TAPSE: 2.5 cm Doppler Measurements & Calculations Ao V2 max: 297.5 cm/sec LVOT Max Chong: 128.0 cm/sec Ao V2 mean: 213.6 cm/sec LV V1 max P.6 mmHg Ao V2 VTI: 61.6 cm LV V1 VTI: 28.8 cm Ao max P.5 mmHg Ao mean P.6 mmHg ALON(I,D): 1.5 cm2 AI P1/2t: 398.3 msec ALON(V,D): 1.3 cm2 AI dec slope: 368.1 cm/sec2 ALON indexed to BSA (cm^2/m^2): 0.85 sev ratio: 0.47 MV E max chong: 82.2 cm/sec MV dec time: 0.28 sec MV A max chong: 124.7 cm/sec MV E/A: 0.66 Med Peak E' Chong: 3.0 cm/sec E/E' med: 27.3 Lat Peak E' Chong: 3.7 cm/sec E/E' lat: 22.2 E/e' average: 24.8 TR max chong: 245.2 cm/sec SV(LVOT): 90.1 ml TR max P.0 mmHg Reading Physician:10:21 AM
[2021-04-29 04:23] LABS: Creatine Kinase 61 U/L (30-135)
[2021-04-29 04:36] LABS: Troponin I 0.053 ng/mL (0.01-0.034)
[2021-04-29 05:16] LABS: Alanine Aminotransferase 24 IU/L (<35); Albumin 3.9 g/dL (3.5-5.0); Albumin Globulin Ratio 1.1 (1.0-2.8); Alkaline Phosphatase 60 U/L (38-126); Aspartate Aminotransferase 33 IU/L (14-36); BUN Creatinine Ratio 41.2 (6-22); Bilirubin Total 1.2 mg/dL (0.2-1.3); Blood Urea Nitrogen 28 mg/dL (7-17); Calcium 9.7 mg/dL (8.4-10.2); Carbon Dioxide 25 mmol/L (22-32); Chloride 94 mmol/L (98-107); Estimated Glomerular Filt Rate > 60.0 mL/min (>60); Globulin 3.5 g/dL (1.7-4.1); Glucose 128 mg/dL (80-110); HEMOLYSIS < 15 (0-50); Magnesium 1.9 mg/dL (1.6-2.3); Potassium 3.7 mmol/L (3.4-5.1); Sodium 127 mmol/L (137-145); Total Protein 7.4 g/dL (6.3-8.2)
[2021-04-29] MEDS: SODIUM CHLORIDE 0.9% 1,000 ML 80 ML IV (05:23)
--- NOTE | 2021-04-29 10:33 | PM.HP.1 ---
History of Present Illness History of Present Illness Date Patient Seen: 04/29/21 Time Patient Seen: 09:00 Date of Onset of Symptoms: 04/27/21 Chief complaint: not getting any better Narrative: Patient is 80-year-old female with history of left bundle branch block, hypertension, hyperlipidemia, valvular heart disease, paroxysmal atrial fibrillation presented back to ED due to feeling poorly. She was seen in the ED on 04/27 with complaints of malaise, nausea and vomiting and loose stools. She was thought to have UTI and sent home on nitrofurantoin. She has not felt better since then. While in the ED today she became acutely dyspneic and dropped her O2 sats transiently. Also noted hypertensive with blood pressure spike to the 170s over 80s. She improved with nebulizer, nitroglycerin and Lasix and at this time is asymptomatic. EKG showed no change with sinus rhythm and left bundle branch block. Troponin was 0.057. On labs also noted hyponatremic with sodium 125 verses 131 on 04/27. She is chronically mildly hyponatremic with sodium level in the low 130s. High at 12.5 versus a 0.0 WBC also mildly high at 12.5 versus 8.0 on 04/27. Chest x-ray reported as atelectasis but no acute infiltrate. She has not had cough or fever. Her urine culture from 04/27 grew vagococcus species. Patient History Medical History Hypertension Family & Social History Social History: lives independently Yes Safety & Behavioral: Feels Safe in Current Yes Environment Been Physically Hurt or No Threatened By a Person Tobacco & Substance use: Smoking Status Never smoker Substance Use Type does not use Meds Home Medications and Allergies Home Medications Medication Instructions Recorded Confirmed Type amlodipine 2.5 mg tablet 2.5 mg PO DAILY 02/05/19 04/28/21 History apixaban 2.5 mg tablet 2.5 mg PO BID 02/05/19 04/28/21 History nadolol 40 mg tablet 40 mg PO DAILY 02/05/19 04/28/21 History nitrofurantoin 100 mg PO BID 04/28/21 04/28/21 History monohydrate/macrocrystals 100 mg capsule simvastatin 5 mg tablet 5 mg PO DAILY 04/28/21 04/28/21 History vitamin K2 100 mcg capsule 100 mcg PO DAILY 04/28/21 04/28/21 History Allergies Allergy/AdvReac Type Severity Reaction Status Date / Time calcium carbonate Allergy Verified 04/28/21 23:32 [From Excedrin Back and Body] ergotamine Allergy Verified 04/28/21 23:32 Penicillins Allergy Nausea Verified 04/28/21 23:32 Sulfa (Sulfonamide Allergy Verified 04/28/21 23:32 Antibiotics) aspirin AdvReac Verified 04/28/21 23:32 [From Excedrin Back and Body] clindamycin AdvReac Verified 04/28/21 23:32 ferrous sulfate AdvReac Verified 04/28/21 23:32 guaifenesin AdvReac Verified 04/28/21 23:32 NSAIDS (Non-Steroidal AdvReac Verified 04/28/21 23:32 Anti-Inflamma sulfamethoxazole AdvReac Verified 04/28/21 23:32 [From Sulfamethoxazole-Trimethoprim] trimethoprim AdvReac Verified 04/28/21 23:32 [From Sulfamethoxazole-Trimethoprim] Review of Systems Review of Systems Narrative: All ROS negative unless otherwise stated Exam Vital Signs (past 8 hours): - 04/29/21 03:00 04/29/21 03:25 04/29/21 03:27 Pulse Rate 63 Respiratory Rate 15 25 H 18 Blood Pressure 108/55 L 163/77 H 171/81 H Pulse Oximetry 95 96 96 04/29/21 03:30 04/29/21 04:00 04/29/21 04:30 Pulse Rate 85 86 Respiratory Rate 18 17 Blood Pressure 151/68 H 157/75 H 146/71 H Pulse Oximetry 94 95 94 04/29/21 05:00 04/29/21 05:30 04/29/21 06:00 Pulse Rate 87 68 70 Respiratory Rate 13 15 17 Blood Pressure 132/65 157/73 H 143/63 H Pulse Oximetry 94 94 94 04/29/21 06:30 04/29/21 07:00 Pulse Rate 67 66 Respiratory Rate 18 17 Blood Pressure 150/69 H 130/60 Pulse Oximetry 94 94 Oxygen Delivery Method Nasal Cannula Oxygen Flow Rate 1 Narrative Exam Narrative: General: Pleasant alert female in no acute distress HEENT: Nontraumatic, anicteric, pupils equal, EOMI Neck: No lymphadenopathy Lungs: Clear to auscultation Heart: Normal S1 and S2, regular rate and rhythm, there is moderate systolic and diastolic murmurs Abdomen: Soft, nontender, no HSM Extremities: Nonedematous Neurological: Alert and oriented, memory appears intact in normal conversation, speech normal, affect normal, nonfocal Objective Labs Result Diagrams: 04/28/21 21:26 04/29/21 04:42 Labs: Laboratory Results - last 24 hr 04/28/21 04/28/21 04/28/21 21:15 21:26 21:26 WBC 12.5 H D RBC 4.33 Hgb 13.0 Hct 39.4 MCV 91.1 MCH 30.1 MCHC 33.0 RDW 13.4 Plt Count 167 Neut % (Auto) 91.5 H Lymph % (Auto) 3.9 L [place] % (Auto) 4.4 Eos % (Auto) 0.0 L Baso % (Auto) 0.2 Neut # (Auto) 28087 H Lymph # (Auto) 500 L [place] # (Auto) 600 Eos # (Auto) 0 Baso # (Auto) 0 ABG pH ABG pCO2 ABG pO2 ABG HCO3 ABG Total CO2 ABG O2 Saturation ABG Base Excess FiO2 Sodium 125 L Potassium 4.0 Chloride 91 L Carbon Dioxide 26 BUN 24 H Creatinine 0.54 Estimated GFR > 60.0 BUN/Creatinine Ratio 44.4 H Glucose 184 H Calcium 9.9 Magnesium Total Bilirubin 1.4 H AST 37 H ALT 25 Alkaline Phosphatase 77 Total Creatine Kinase 87 CK-MB (CK-2) TNP CK-MB (CK-2) Rel Index TNP Troponin I 0.023 NT-Pro-B Natriuret Pep 3490 H Total Protein 8.4 H Albumin 4.5 Globulin 3.9 Albumin/Globulin Ratio 1.2 Lipase 69 Procalcitonin < 0.03 SARS-CoV-2 (PCR) Negative 04/28/21 04/28/21 04/29/21 21:40 22:03 00:22 WBC RBC Hgb Hct MCV MCH MCHC RDW Plt Count Neut % (Auto) Lymph % (Auto) [place] % (Auto) Eos % (Auto) Baso % (Auto) Neut # (Auto) Lymph # (Auto) [place] # (Auto) Eos # (Auto) Baso # (Auto) ABG pH 7.43 ABG pCO2 43.5 ABG pO2 62 L ABG HCO3 29 H ABG Total CO2 30 ABG O2 Saturation 92 L ABG Base Excess 5.0 H FiO2 24 Sodium Potassium Chloride Carbon Dioxide BUN Creatinine Estimated GFR BUN/Creatinine Ratio Glucose Calcium Magnesium Total Bilirubin AST ALT Alkaline Phosphatase Total Creatine Kinase 62 CK-MB (CK-2) TNP CK-MB (CK-2) Rel Index TNP Troponin I 0.050 H NT-Pro-B Natriuret Pep Total Protein Albumin Globulin Albumin/Globulin Ratio Lipase Procalcitonin SARS-CoV-2 (PCR) Negative 04/29/21 04/29/21 04:02 04:42 WBC RBC Hgb Hct MCV MCH MCHC RDW Plt Count Neut % (Auto) Lymph % (Auto) [place] % (Auto) Eos % (Auto) Baso % (Auto) Neut # (Auto) Lymph # (Auto) [place] # (Auto) Eos # (Auto) Baso # (Auto) ABG pH ABG pCO2 ABG pO2 ABG HCO3 ABG Total CO2 ABG O2 Saturation ABG Base Excess FiO2 Sodium 127 L Potassium 3.7 Chloride 94 L Carbon Dioxide 25 BUN 28 H Creatinine 0.68 Estimated GFR > 60.0 BUN/Creatinine Ratio 41.2 H Glucose 128 H Calcium 9.7 Magnesium 1.9 Total Bilirubin 1.2 AST 33 ALT 24 Alkaline Phosphatase 60 Total Creatine Kinase 61 CK-MB (CK-2) TNP CK-MB (CK-2) Rel Index TNP Troponin I 0.053 H NT-Pro-B Natriuret Pep Total Protein 7.4 Albumin 3.9 Globulin 3.5 Albumin/Globulin Ratio 1.1 Lipase Procalcitonin SARS-CoV-2 (PCR) Assessment & Plan Assessment & Plan narrative: 1. Acute hypertensive urgency -patient became acutely dyspneic and transiently hypoxic with spike in BP but responded rapidly to nitroglycerin, amlodipine, Lasix and albuterol nebulizer. She had missed probably at least a couple of days of her medications due to nausea and vomiting. -resume home medications amlodipine 2.5 mg q.d. and nadololl 40 mg q.d. -EKG: NSR, LBB be unchanged from previous -echo showing mild LVH, normal LVEF, mild , moderate AR -initial troponin 0.057, repeat troponin at 12:00 p.m. 2. Acute hyponatremia due to dehydration -sodium 125 in setting of nausea, vomiting and poor p.o. intake -continue NS 80 cc/hour x1 L if patient able to maintain oral fluid intake -repeat electrolytes in a.m. 3. Possible urinary tract infection -patient is seen in the ED 04/27 with nausea, vomiting, UA with 5-10 WBC, many bacteria and urine culture grew vagicoccus species -continue nitrofurantoin 100 mg b.i.d. 4. Acute nausea and vomiting -this was present on admission and several days prior and currently improved, possibly UTI related but not completely clear -hydrate as above, Zofran as needed 5. History of atrial fibrillation, presumed paroxysmal -continue nadolol and Eliquis per home routine Admit status: Observation Code status: Patient unable to indicate clearly and POLST not available DVT prophylaxis: Patient on Eliquis
[2021-04-29 10:57] LABS: Add Manual Diff / Slide Review NO; Basophils Absolute Auto 100 /uL (0-100); Basophils Percent Auto 0.5 % (0-2); Eosinophils Absolute Auto 0 /uL (0-450); Hemoglobin 11.5 g/dL (12.0-16.0); Lymphocytes Absolute Auto 600 /uL (1100-4500); Lymphocytes Percent Auto 5.1 % (25-40); Mean Corpuscular HGB Conc 34.8 % (30-36); Mean Corpuscular Volume 89.2 fL (80-100); Monocytes Absolute Auto 1400 /uL (0-900); Monocytes Percent Auto 12.7 % (3-14); Neutrophils Absolute Auto 9200 /uL (1500-7000); Neutrophils Percent Auto 81.7 % (50-75); Platelet Count 146 X10^3/uL (150-400); Red Cell Distribution Width 13.4 % (11.6-14.8); White Blood Cell Count 11.3 X10^3/uL (4.5-11.0)
[2021-04-29] MEDS: APIXABAN 5 MG TABLET 2.5 MG PO ×2 (11:08→20:29)
[2021-04-29] MEDS: NITROFURANTOIN ER 100 MG CAPSULE PO ×2 (11:09→20:28)
--- NOTE | 2021-04-29 13:16 | PC.NURSE ---
Admit note: Patient admitted to room 209, awake, alert, and pleasantly cooperative. Very [place]. IVF and Cardiac Tele initiated upon arrival. Per patient, lives home alone and has neighbors and friends that help her at home. Required assistance from gurney to bed, states does not use cane/walker at home. States feels mildly weak and mild dysuria, however much improved form previous day. No N/V. Oriented to room, environment, and plan of care. Call light within reach, bed alarm active, high fall risk precautions maintained.
[2021-04-29 14:25] LABS: Troponin I 0.051 ng/mL (0.01-0.034)
--- NOTE | 2021-04-29 18:56 | PC.NURSE ---
Addendum entered by Oliva Olsen R.N. 04/29/21 23:35: Dyspnea noted with conversation and exertion and pt admits this has occurred prior to admission and pt reports plan to discuss with tool profiling machine set up operator. Assist x 1 to bedside commode. Pt is continent and incontinent of urine. Denies urinary discomfort. Instructed pt to call for assistance when needing/desiring out of bed. Original Note: Pt resting quietly in bed. Able to make needs and wants known to staff members. Denies chest pain. Tele in place. Pt is hard of hearing, but mentating appropriately. Reviewed with pt evening meds to be given this evening as per pt request.
[2021-04-29] MEDS: SODIUM CHLORIDE 0.9% FLUSH 10 ML IV (20:28)
[2021-04-30] VITALS (13 sets, daily range): BP systolic 143–179; BP diastolic 45–82; PULSE 68–86; RESP 16–22; TEMP 36.2–36.9; O2SAT 95–98; BMI 22.6
--- NOTE | 2021-04-30 00:55 | PC.NURSE ---
Addendum entered by Krystyna Medrano R.N. 04/30/21 01:53: Earlier CHIEF DEPUTY SHERIFF had reported patient had 3 runs of vtach with HR high of 115. Steffen MURCIA, was informed by CHIEF DEPUTY SHERIFF. Patient evaluated by Delmy Aleman RN and had BP of 156/68 and HR of 70 and asymptomatic. Original Note: Patient is alert and oriented. Very [facility] and has no hearing aids. Breath sounds CTA with RA sat of 97%; denies SOB but does demonstrate SOB with conversation but still able to speak in complete sentences. HRR and is on telemetry with last reading recorded at 1914 was SR. BP still elevated at 150/81. Denies nausea. BT present and abdomen is soft. Denies dysuria but has urgency and some incontinence. Able to move self in bed and up to bathroom with walker and 1 assist; states she feels generalized weakness. Denies pain. Fall risk assessment is high and bed alarm is activated.
[2021-04-30 06:13] LABS: Add Manual Diff / Slide Review NO; Basophils Absolute Auto 0 /uL (0-100); Basophils Percent Auto 0.2 % (0-2); Eosinophils Absolute Auto 0 /uL (0-450); Eosinophils Percent Auto 0.5 % (2-4); Hematocrit 34.5 % (36-46); Hemoglobin 11.6 g/dL (12.0-16.0); Lymphocytes Absolute Auto 700 /uL (1100-4500); Lymphocytes Percent Auto 7.6 % (25-40); Mean Corpuscular HGB Conc 33.6 % (30-36); Mean Corpuscular Hemoglobin 30.7 PG (26-34); Mean Corpuscular Volume 91.4 fL (80-100); Monocytes Absolute Auto 1400 /uL (0-900); Monocytes Percent Auto 15.5 % (3-14); Neutrophils Absolute Auto 6700 /uL (1500-7000); Neutrophils Percent Auto 76.2 % (50-75); Platelet Count 125 X10^3/uL (150-400); Red Blood Cell Count 3.77 X10^6/uL (4.0-5.2); Red Cell Distribution Width 13.3 % (11.6-14.8); White Blood Cell Count 8.8 X10^3/uL (4.5-11.0)
--- NOTE | 2021-04-30 06:57 | PC.NURSE ---
0700- Patient has had several runs of VTach highest rate 115. SALVADOR Bourne reviewed strips. Complex is Narrow and QRS morphology is different than baseline QRS. It would appear that the P wave may be buried in the T wave but no 12 lead obtained. Patient has been asymptomatic and electrolytes are all wnl. Will continue to monitor.
[2021-04-30] MEDS: APIXABAN 5 MG TABLET 2.5 MG PO ×2 (08:30→21:06)
[2021-04-30] MEDS: NITROFURANTOIN ER 100 MG CAPSULE PO ×2 (08:31→21:05)
[2021-04-30] MEDS: SODIUM CHLORIDE 0.9% FLUSH 10 ML IV ×2 (08:31→21:06)
[2021-04-30] MEDS: AMLODIPINE 5 MG TABLET PO (08:32)
[2021-04-30 08:33] LABS: BUN Creatinine Ratio 43.1 (6-22); Blood Urea Nitrogen 28 mg/dL (7-17); Calcium 9.3 mg/dL (8.4-10.2); Carbon Dioxide 29 mmol/L (22-32); Chloride 97 mmol/L (98-107); Estimated Glomerular Filt Rate > 60.0 mL/min (>60); Glucose 90 mg/dL (80-110); HEMOLYSIS < 15 (0-50); Potassium 3.8 mmol/L (3.4-5.1); Sodium 129 mmol/L (137-145)
--- NOTE | 2021-04-30 10:15 | PC.NURSE ---
Patient resting in bed, breathing unlabored. Becomes SOB with talking but denies feeling increased WOB or SOB at rest. Denies chest pain, feelings of lethargy, dizziness, lightheadedness, or nausea. Using FWW to go to restroom. Endorses stress incontinence. Tele on. Refusing SCD's. Saline locked. Call light in reach. Denies further needs at this.
--- NOTE | 2021-04-30 12:21 | CM.DANOTE ---
Addendum entered by Zoie Naranjo LPN 04/30/21 15:30: Face/Face is completed and faxed now to [facility]. HH specific order still needed and will have DCP team on at time of d/c do this. PT eval is ordered and Malini is currently seeing pt with Lisset assisting in the information process. Did confirm that pt lives in a condo which she owns. P: home, likely tomorrow: with [facility] set to see pt next and POA support as noted. Addendum entered by Zoie Naranjo LPN 04/30/21 15:11: Have met now with pt and Lisset/friend and POA. Lisset clarifies pt's living situation and plan going forward. Pt has 2 other friends on [place] also noted as POA and they all work together to support pt. Pt lives at home and plans to stay there until she dies. She has the funds to support this. Has history of using [facility] and the POA's are planning to stay with pt at d/c (expected tomorrow per Dr. Washington) on a rotation for a few days to get a sense of what she is currently needing and then look at restarting [facility] or some other agency to start at minimal hours with understanding that pt may need more time as her needs change. Pt has been relying on helpful neighbors and POAs are well aware that this is becoming inappropriate. Pt does have [facility] and uses this She has no HH past and pt agrees now with Lisset that this would be a good thing to have as she leaves the hospital. Agency list: discussed: no decision: [facility] has accepted. BRANNON Robles will send the current clinical notes. Plan for RN/OT/PT. Face/Face document started. Original Note: Discharge Planning/Care Management DCP: assessment: case received, EMR reviewed and discussed in Team Rounds. Met then with pt and introduced self and role. Pt describes herself as very [place] and with HAids which have recently had problems. She says her POA (one of 3) Lisset Thomas/Alireza [place]: [phone] is the one to talk to. She makes all my arrangements for care needs. Have spoken with Lisest by phone and she is at bedside now. Dr. Washington is alerted and plans to meet with her shortly. Pt is an 80 year old female who admitted yesterday to care of hospitalist team. Admission status: OBS: per UR AMADEO Chopra Payer: Medicare and [facility] PCP: uLis Pizarro P: check in again after Dr. Washington sees pt and Lisset and follow for any d/c needs. Dr. Washington did indicate in Rounds that pt may be stable for a d/c today. Advanced directive, confirm from FAMILY Start: 04/29/21 12:13 Freq: Q24H Status: Active Protocol: Document 04/29/21 12:13 EM (Rec: 04/29/21 12:13 EM [id number]) Advance Directive, confirm on record Time 12:13 Person contacted gage Copy received No CM Discharge Assessment Start: 04/30/21 12:20 Freq: Status: Active Protocol: Document 04/30/21 12:20 ITV (Rec: 04/30/21 12:21 ITV [id number]) Discharge Planning Assessment Advance Directives? Yes Advance Directives on File No History Provided By Patient,Medical Record Prior Living Arrangements House Household Members none Is patient alert and oriented? Yes: very [place] Whiteboard Updated in Patient Room with Yes name and ext. # of Manager Gaming
[2021-04-30] MEDS: POTASSIUM CHLORIDE 20 MEQ TAB PO (13:38)
[2021-04-30] MEDS: FUROSEMIDE 20 MG TABLET PO (13:38)
--- NOTE | 2021-04-30 15:20 | PT.IIE ---
Medical History (Last Reviewed 04/29/21 @ 05:22 by Ashwin Moreno DO) Hypertension Physical Therapy Inpatient Evaluation/Re-Eval M1 PT/OT-IP Prior Functional Status Start: 04/30/21 16:15 Freq: NEEDED Status: Active Protocol: Document 04/30/21 15:20 AB (Rec: 04/30/21 16:29 AB [email or web address]) Medical Review Prior Functional Status Medical History Reviewed Yes Communication able to make needs known but is very [place] Mobility and Gait pt stated that she is modified independent with all mobilities and ambulation without AD indoors but uses her walking stick for outdoor mobility Social History Household Members none Living Arrangements Apartment/Condo Number of Floors (Floors) One Floor Number of Stairs To Enter/Railing? elevator to get to her floor Home Environment High Toilet,Walk in Shower Home Equipment Four Wheel Walker,Shower Seat without Backrest,Hand Held Shower,Grab Bars Near Toilet, Grab Bars In Shower Additional Social History Comment pt's friend/POA stated that she and another friend with stay with pt for ~ 2days to assist pt and currently arranging for visiting nurses as well has a walking stick M2 PT-IP Current Condition Start: 04/30/21 16:15 Freq: NEEDED Status: Active Protocol: Document 04/30/21 15:20 AB [email or web address] Current Condition Current Condition Evaluation Date 04/30/21 Treatment Diagnosis UTI; difficulty in walking Onset Date 04/29/21 M3 PT-IP Subjective Start: 04/30/21 16:15 Freq: NEEDED Status: Active Protocol: Document 04/30/21 15:20 AB (Rec: 04/30/21 16:29 AB [email or web address]) Subjective Physical Therapy Visit Type Type Initial Evaluation Visit Start Time 15:20 Visit Stop Time 15:45 Total Visit Minutes 25 Number of RELIEF MANAGER Visits 0 Physical Therapy Visit Comments Patient Comments requesting to use the toilet Therapy Pain Assessment Pain Present Pain Present Denied Pain M4 PT-IP Mobility and Gait Start: 04/30/21 16:15 Freq: NEEDED Status: Active Protocol: Document 04/30/21 15:20 AB (Rec: 04/30/21 16:29 [email or web address]) PT-Bed Mobility Assessment Supine to Sit Supine to Sit Standby Assistance PT-Transfer Assessment Sit to and From Stand Sit to and from Stand Contact Guard Assistance,1 Person Assistance Equipment Transfer Assistive Device Gait Belt,Front Wheeled Walker Orthotic/Prosthetic Devices or Brace: No Transfers Transfer Destination Toilet Transfer Technique ambulated using FWW Transfer Ability Level of Assist Contact Guard Assistance,1 Person Assistance,Use of Upper Extremities Comments Mobility Comments pt supine in bed and agreed to do PT. requesting to use the toilet. completed supine to sit SBA and was able to sit on EOB SBA. completed sit to stand CGA and ambulated to the toilet using FWW CGA. Pt completed sit to stand from the toilet CGA using grab bar and pt ambualted out of the toilet using FWW CGA. Assessed pt ambulation without AD and completed ~ 25 ft min A and cues with (+) LOB to the R requiring min A for stability. pt agreed to sit up on chair. positioned pt on chair. call light and table placed within reach. informed pt and pt's friend regarding safety and use of FWW at this time. will assessed mobility using 4WW if appropriate next tx session. Gait Assessment Gait Gait Assistance Required: Contact Guard Assist,Minimum Assistance Distance (Feet) 25 Able to Maintain Weight Bearing Status Yes During Gait Assistive Devices Assistive Device None,Gait Belt,Front Wheeled Walker Orthotic/Prosthetic Devices or Brace: No Gait Deviations General Gait Pattern Antalgic,Decreased Stride Length,Decreased Feet Clearance,Step-to Gait Factors Limiting Gait Function Factors Limiting Gait Function Decreased Activity Tolerance, Decreased Strength,Poor Balance Comments Gait Comments pls refer to mobility section for details PT-Balance Assessment Sitting Balance and Reactions Static Sitting Balance Ability Good Dynamic Sitting Balance Ability Good Standing Balance and Reactions Static Standing Balance Ability Fair Dynamic Standing Balance Ability Fair Device Used using FWW M5 PT-IP Objective Assessments Start: 04/30/21 16:15 Freq: NEEDED Status: Active Protocol: Document 04/30/21 15:20 AB (Rec: 04/30/21 16:29 AB [id number]) Orientation Orientation/Cognition Level of Alertness Alert Orientation Name Language Function Ability Hard of Hearing Safety Awareness Decreased Safety Awareness Gross Range of Motion Lower Extremity ROM Assessment Within Functional Limits Strength Lower Extremity Strength Assessment Within Functional Limits Sensation Assessment Sensation Gross Sensation WNL Muscle Tone Muscle Tone WNL Yes M6 PT-IP Treatment Start: 04/30/21 16:15 Freq: NEEDED Status: Active Protocol: Document 04/30/21 15:20 AB (Rec: 04/30/21 16:29 AB [id number]) Physical Therapy Treatment Education Education Provided Safety M7 PT-IP Assessment and Plan Start: 04/30/21 16:15 Freq: NEEDED Status: Active Protocol: Document 04/30/21 15:20 AB (Rec: 04/30/21 16:29 AB [id number]) PT Summary Assessment and Plan Potential Rehabilitation Potential Good Status of Condition at Evaluation Stable Summary Impairments Pain,ROM,Strength,Balance, Coordination,Sensation,Tone, Cognition,Bed Mobility, Transfers,Gait,Activity Tolerance Assessment Summary pt requiring CGA with ambulation using FWW but min A without AD. recommending use of FWW at this time. Pt only has a 4WW for home use and will assess appropriateness for 4WW use next tx session. pt will also benefit from HHPT . will continue with PT to improve overall strength, acitivty tolerance and mobility independence. pt will need assistance at home and pt's friend stated that she and another friend will stay with pt for ~ 2 days to assist her and reji also arranging for visiting nurses to come in and assist pt. Goals Bed Mobility Goal Independent Transfer Goal Independent,Front Wheeled Walker,Four Wheeled Walker Gait Goal Independent,Front Wheel Walker ,Four Wheel Walker Gait Distance 250 Other Goals ambulation without AD 150 ft SBA Days to Meet Goals 5 Frequency of Treatment Frequency Of Treatment Once a Day Treatment Plan Physical Therapy Treatment Plan Bed Mobility Training,Transfer Training,Gait Training, Therapeutic Exercise,Balance Retraining,Discharge Planning, Neuromuscular Re-ed, Coordination Retraining Recommendations To Nursing Amount of Assist Needed 1 Person Assist Discharge Recommendations PT Discharge Recommendations Home with Assistance,Home Health Transportation Needs at Discharge Private Vehicle
--- NOTE | 2021-04-30 15:25 | CM.DPNOTE ---
Faxed referral packet to [facility] for review at Zoie's request. I spoke to Sharron who said she will put her on the schedule for May 04. Received fax confirmation. [place].
--- NOTE | 2021-04-30 18:18 | PC.NURSE ---
Pt awake, alert in bed watching television. Denies pain. Pt's voice is hoarse and pt states this has been the case on and off occasionally. Has been up to void in bathroom with assistance several times since the beginning of this shift. Pt is quite hard of hearing, but is able to make needs and wants known to staff members.
--- NOTE | 2021-04-30 19:35 | PM.PN.1 ---
Subjective Subjective Date Patient Seen: 04/30/21 Interval history: Patient is 80-year-old female with history of left bundle branch block, hypertension, hyperlipidemia, valvular heart disease, paroxysmal atrial fibrillation presented back to ED due to feeling poorly. Patient feels short of breath today with getting up to bathroom and observed to have elevated respiratory rate while at rest. Also she was having palpitations during the night with telemetry showing frequent episodes of intermittent atrial fibrillation with RVR. Exam Vital Signs (past 8 hours): - 04/30/21 11:47 04/30/21 12:47 04/30/21 13:00 Temperature 98.2 F Pulse Rate 68 68 Respiratory Rate 16 Blood Pressure 154/45 H 145/54 H Pulse Oximetry 97 97 04/30/21 15:53 04/30/21 18:21 Temperature 98.4 F Pulse Rate 74 Respiratory Rate 16 Blood Pressure 151/80 H Pulse Oximetry 95 95 Oxygen Delivery Method Room Air Oxygen Flow Rate 0 Narrative Exam Narrative: General: Alert, cooperative hard of hearing, appears mildly dyspneic while talking Lungs: Clear to auscultation Heart: Regular rate and rhythm Abdomen: Soft Extremities: No edema Objective Labs Result Diagrams: 04/30/21 05:47 04/30/21 05:47 Labs: Laboratory Results - last 24 hr 04/30/21 04/30/21 05:47 05:47 WBC 8.8 RBC 3.77 L Hgb 11.6 L Hct 34.5 L MCV 91.4 MCH 30.7 MCHC 33.6 RDW 13.3 Plt Count 125 L Neut % (Auto) 76.2 H Lymph % (Auto) 7.6 L [place] % (Auto) 15.5 H Eos % (Auto) 0.5 L Baso % (Auto) 0.2 Neut # (Auto) 6700 Lymph # (Auto) 700 L [place] # (Auto) 1400 H Eos # (Auto) 0 Baso # (Auto) 0 Sodium 129 L Potassium 3.8 Chloride 97 L Carbon Dioxide 29 BUN 28 H Creatinine 0.65 Estimated GFR > 60.0 BUN/Creatinine Ratio 43.1 H Glucose 90 Calcium 9.3 PFSH Medical History Hypertension Social History household members: none lives independently: Yes Smoking Status: Never smoker Assessment & Plan Assessment & Plan narrative: 1. Acute hypertensive urgency -patient became acutely dyspneic and transiently hypoxic with spike in BP but responded rapidly to nitroglycerin, amlodipine, Lasix and albuterol nebulizer. She had missed probably at least a couple of days of her medications due to nausea and vomiting. -blood pressures remain elevated mostly 150s-170s systolic with resumption of home medication -increased amlodipine to 5 mg q.d., increased Nadolol 80 mg Q HS -EKG: NSR, LBB be unchanged from previous -echo showing mild LVH, normal LVEF, mild , moderate AR, no change from previous -ruled out MN 2. Acute hyponatremia -initial sodium 125 in setting of nausea, vomiting and poor p.o. intake, sodium improved to 129 -volume status hard to youth court judge as patient is now more dyspneic and seems to be having heart failure symptoms 3. Heart failure with preserved EF with exacerbation -patient with increased dyspnea although echo and exam are rather unremarkable, however clinically it seems that she is in mild heart failure and would benefit from low-dose loop diuretic -started furosemide 20 mg p.o. daily, KCl 20 mEq p.o. daily with furosemide 4. Paroxysmal atrial fibrillation -patient having palpitations overnight -inc nadolol to 80 mg HS -continue Eliquis -continue telemetry 3. Possible urinary tract infection -patient is seen in the ED 04/27 with nausea, vomiting, UA with 5-10 WBC, many bacteria and urine culture grew vagicoccus species -continue nitrofurantoin 100 mg b.i.d. 4. Acute nausea and vomiting, resolved -this was present on admission and several days prior and currently improved, possibly UTI related but not completely clear Patient needs 1 more day in hospital to adjust medications and monitor symptoms and hopefully can discharge home tomorrow.
[2021-04-30] MEDS: ATORVASTATIN 20 MG TABLET 10 MG PO (21:07)
[2021-05-01 00:25] VITALS: BP 151/72; PULSE 65; RESP 18; TEMP 36.9; O2SAT 96
[2021-05-01 03:25] VITALS: BP 147/79; PULSE 64; RESP 18; TEMP 36.3; O2SAT 96
[2021-05-01 08:26] VITALS: BP 185/87; PULSE 69; RESP 16; TEMP 36.6; O2SAT 97
[2021-05-01] MEDS: POTASSIUM CHLORIDE 20 MEQ TAB PO (08:55)
[2021-05-01] MEDS: AMLODIPINE 5 MG TABLET PO (08:56)
[2021-05-01] MEDS: APIXABAN 5 MG TABLET 2.5 MG PO (08:56)
[2021-05-01] MEDS: FUROSEMIDE 20 MG TABLET PO (09:00)
[2021-05-01] MEDS: SODIUM CHLORIDE 0.9% FLUSH 10 ML IV (09:00)
[2021-05-01] MEDS: NITROFURANTOIN ER 100 MG CAPSULE PO (09:01)
--- NOTE | 2021-05-01 09:25 | CM.DPC ---
Addendum entered by Cary Ogden R.N. 05/01/21 15:30: Spoke to patient's friend, Lisset, and explained how the home health process works. Sharron from [facility] called back and stated that she received paper work for discharge. Called Sharron back after speaking to Lisset, and gave Sharron her phone number as initial point of contact. Confirmed that Lisset and other friend will be staying with patient until [facility] can be set up, they have already been contacted. Original Note: DCP Cont: Patient has discharge orders. [facility] was already ordered for patient, nursing, P.T, O.T. Left a message with Sharron at [facility] that patient is discharging home today. It is noted by colleage, Zoie, that patient has some family staying with her upon discharge, and that they will be working with [facility]. P: Patient is to discharge home today with [facility]. Cary Ogden RN/Milling Machine Set Up Operator
--- NOTE | 2021-05-01 10:42 | PM.DS.1 ---
History of Present Illness History of Present Illness Chief complaint: not getting any better Narrative: Patient is 80-year-old female with history of left bundle branch block, hypertension, hyperlipidemia, valvular heart disease, paroxysmal atrial fibrillation presented back to ED due to feeling poorly. She was seen in the ED on 04/27 with complaints of malaise, nausea and vomiting and loose stools. She was thought to have UTI and sent home on nitrofurantoin. She has not felt better since then. While in the ED today she became acutely dyspneic and dropped her O2 sats transiently. Also noted hypertensive with blood pressure spike to the 170s over 80s. She improved with nebulizer, nitroglycerin and Lasix and at this time is asymptomatic. EKG showed no change with sinus rhythm and left bundle branch block. Troponin was 0.057. On labs also noted hyponatremic with sodium 125 verses 131 on 04/27. She is chronically mildly hyponatremic with sodium level in the low 130s. High at 12.5 versus a 0.0 WBC also mildly high at 12.5 versus 8.0 on 04/27. Chest x-ray reported as atelectasis but no acute infiltrate. She has not had cough or fever. Her urine culture from 04/27 grew vagococcus species. Discharge Providers Provider Date of admission: 04/30/21 09:45 Discharge Date: 05/01/21 Primary care physician: Pardeep Pizarro MD Consults: 04/30/21 11:29 Consult to Physical Therapy Evaluate & Treat Comment: Physician Instructions: Evaluate and Treat 05/01/21 09:08 Consult to Home Health Routine Comment: Reason For Exam: Home Health RN, P.T, O.T. Discharge provider: Lacho Washington MD Summary Hospital Course Discharge Diagnosis: 1. Congestive heart failure with preserved EF with acute exacerbation 2. Acute hypertensive urgency 3. Acute hyponatremia 4. Paroxysmal atrial fibrillation 5. Chronic left bundle branch block 6. Possible UTI Hospital Course: Patient presented with general malaise and rather nonspecific symptoms. She did have episode of acute hypertensive urgency in the ED where she became short of breath but responded to nitroglycerin, amlodipine, Lasix and albuterol nebulizer. On subsequent hospital days patient appeared dyspneic at rest and with exertion. Symptoms responded to initiation of oral Lasix which she had good diuresis. Patient further in dorsal is that she has had dyspnea on exertion and has had to reduce her walking over the past few weeks. Her echo showed mild LVH, LVEF 60-65%, normal RV, mild , moderate to severe AR which were unchanged from previous echo in December of this year. Patient is being discharged on daily furosemide. She has very difficult time swallowing the potassium pill so instead I started her on spironolactone to help maintain normal potassium levels. I also increased her amlodipine from 2.5 mg to 5 mg daily for BP control. Patient has chronic left bundle branch block and intermittent atrial fibrillation. Noted to have frequent AFib episodes with mildly elevated heart rate during the night. Her nadololl was increased from 40 mg to 80 mg each evening. Patient's admission sodium was 125 and on discharge was 129. Her volume status was difficult to toeing stockings but hyponatremia is likely volume overload related due to CHF. Her baseline sodium is around 130-135. Patient was treated with nitrofurantoin for possible UTI. Urine culture grew vagicoccus species which is not a typical UTI bug. Patient has cardiology appointment next week and will follow up with PCP. She is instructed to have her electrolytes and renal function checked next week to monitor on the diuretics. Status at Discharge Cognitive/behavioral status at discharge: oriented Functional status at discharge: independent ambulation Overall status at discharge: patient is progressing back to baseline Time Spent with Patient Time spent: Greater than 30 minutes Exam Vital Signs (past 8 hours): - 05/01/21 03:25 Temperature 97.4 F L Pulse Rate 64 Respiratory Rate 18 Blood Pressure 147/79 H Pulse Oximetry 96 Oxygen Delivery Method Room Air Oxygen Flow Rate 0 Objective Labs Result Diagrams: 04/30/21 05:47 04/30/21 05:47 [facility] Medical History Hypertension Social History household members: none lives independently: Yes Smoking Status: Never smoker Discharge Plan Discharge Plan Patient Disposition: Home Provider Discharge Comment: You were treated for symptoms of heart failure. We made multiple medication adjustments. Please have the office services specialist or Dr Pizarro check blood work next to check kidney function and electrolytes to monitor on these medications. Discharge orders & Medications Prescriptions: New amlodipine [Norvasc] 5 mg Tablet 5 mg PO DAILY Qty: 30 RF: 0 nadolol 40 mg Tablet 80 mg PO BEDTIME Qty: 60 RF: 0 furosemide 20 mg Tablet 20 mg PO DAILY Qty: 30 RF: 0 spironolactone 25 mg tablet 25 mg PO DAILY Qty: 30 RF: 0 Continued apixaban 2.5 mg tablet 2.5 mg PO BID RF: 0 simvastatin 5 mg tablet 5 mg PO DAILY RF: 0 vitamin K2 100 mcg Capsule 100 mcg PO DAILY RF: 0 Discontinued amlodipine 2.5 mg tablet 2.5 mg PO DAILY RF: 0 nadolol 40 mg tablet 40 mg PO DAILY RF: 0 nitrofurantoin monohyd/m-cryst 100 mg Capsule 100 mg PO BID RF: 0 Follow up/Referrals: Pardeep Pizarro MD [Primary Care Provider] - Diet/Activity/Treatments Diet: Regular Discharge Data Primary Care Provider: Pardeep Pizarro V
--- NOTE | 2021-05-01 12:11 | PT.IPTN ---
Current Diagnoses Acute on chronic diastolic (congestive) heart failure (04/30/21) Physical Therapy Treatment Note M2 PT-IP Current Condition Start: 04/30/21 16:15 Freq: NEEDED Status: Active Protocol: Document 04/30/21 15:20 AB (Rec: 04/30/21 16:29 AB [id number]) Physical Therapy Current Condition Current Condition Evaluation Date 04/30/21 Treatment Diagnosis UTI; difficulty in walking Onset Date 04/29/21 M3 PT-IP Subjective Start: 04/30/21 16:15 Freq: NEEDED Status: Active Protocol: Document 05/01/21 11:45 CLB (Rec: 05/01/21 12:58 CLB [id number]) Subjective Physical Therapy Visit Type Type Treatment Note Visit Start Time 11:45 Visit Stop Time 12:11 Total Visit Minutes 26 Notes Pt friend present during tx. Number of MANAGER WIRELESS Visits 1 Physical Therapy Visit Comments Patient Comments requesting to use the toilet Therapy Pain Assessment Pain Present Pain Present Denied Pain M4 PT-IP Mobility and Gait Start: 04/30/21 16:15 Freq: NEEDED Status: Active Protocol: Document 05/01/21 11:45 CLB (Rec: 05/01/21 12:58 CLB [id number]) PT-Bed Mobility Assessment Supine to Sit Supine to Sit Standby Assistance Sit to Supine Sit to Supine Standby Assistance PT-Transfer Assessment Sit to and From Stand Sit to and from Stand Standby Assistance,1 Person Assistance Equipment Transfer Assistive Device Gait Belt,Front Wheeled Walker Orthotic/Prosthetic Devices or Brace: No Transfers Transfer Destination Bed,Chair,Toilet Transfer Technique ambulated using FWW Transfer Ability Level of Assist Standby Assistance,1 Person Assistance Comments Mobility Comments Pt in bed needing to use the BR. Pt stood with FWW and ambulated into BR SBA. Pt sat on toilet, performed own pericare and changed brief in sitting. Pt ambulate to chair while MANAGER WIRELESS left room to obtain 4WW for ambulation trial. Pt stood SBA and pt's friend assisted pt with donning tia and placing GB. Pt ambulated in lu ~210ft w/4WW/SBA. Pt has 4WW at home and will be safe with using this AD at home. Pt sat on bed and returned to supine SBA. Pt with SOB after gait but oximeter was not present in room. RN notified. Pt left in bed with all needs within reach and friend present. Gait Assessment Gait Gait Assistance Required: Standby Assistance,1 Person Assist Distance (Feet) 210 Able to Maintain Weight Bearing Status Yes During Gait Assistive Devices Assistive Device Gait Belt,4 Wheeled Walker Orthotic/Prosthetic Devices or Brace: No Gait Deviations General Gait Pattern Antalgic Factors Limiting Gait Function Factors Limiting Gait Function Decreased Activity Tolerance, Decreased Strength,Poor Balance Comments Gait Comments pls refer to mobility section for details Stair Climbing Assessment Comments Stair Climbing Comments no stairs at home M5 PT-IP Objective Assessments Start: 04/30/21 16:15 Freq: NEEDED Status: Active Protocol: Document 04/30/21 15:20 AB (Rec: 04/30/21 16:29 AB [id number]) Orientation Orientation/Cognition Level of Alertness Alert Orientation Name Language Function Ability Hard of Hearing Safety Awareness Decreased Safety Awareness Gross Range of Motion Lower Extremity ROM Assessment Within Functional Limits Strength Lower Extremity Strength Assessment Within Functional Limits Sensation Assessment Sensation Gross Sensation WNL Muscle Tone Muscle Tone WNL Yes M6 PT-IP Treatment Start: 04/30/21 16:15 Freq: NEEDED Status: Active Protocol: Document 04/30/21 15:20 AB (Rec: 04/30/21 16:29 AB [email or web address]) Physical Therapy Treatment Education Education Provided Safety M7 PT-IP Assessment and Plan Start: 04/30/21 16:15 Freq: NEEDED Status: Active Protocol: Document 05/01/21 11:45 CLB (Rec: 05/01/21 12:58 CLB [id number]) PT Summary Assessment and Plan Potential Rehabilitation Potential Good Status of Condition at Evaluation Stable Summary Impairments Pain,ROM,Strength,Balance, Coordination,Sensation,Tone, Cognition,Bed Mobility, Transfers,Gait,Activity Tolerance Progress Towards Goals Progressing Toward Goals Assessment Summary Pt requiring SBA for bed mobility, sit<>stand and ambulation with 4WW. Pt with SOB during ambulation and RN notified. Pt friend will stay with pt for 2 days then a second friend plans to stay with pt. [facility] are scheduled to come in for a few hours a day to assist pt. Pt does not want HH. Goals Bed Mobility Goal Independent Transfer Goal Independent,Front Wheeled Walker,Four Wheeled Walker Gait Goal Independent,Front Wheel Walker ,Four Wheel Walker Gait Distance 250 Other Goals ambulation without AD 150 ft SBA Days to Meet Goals 5 Frequency of Treatment Frequency Of Treatment Once a Day Treatment Plan Physical Therapy Treatment Plan Bed Mobility Training,Transfer Training,Gait Training, Therapeutic Exercise,Balance Retraining,Discharge Planning, Neuromuscular Re-ed, Coordination Retraining Recommendations To Nursing Amount of Assist Needed 1 Person Assist Discharge Recommendations PT Discharge Recommendations Home with Assistance Transportation Needs at Discharge Private Vehicle
--- NOTE | 2021-05-01 12:32 | PC.NURSE ---
Addendum entered by Ling Puri R.N. 05/01/21 14:48: Sat next to patients bed and answered patient's follow up questions regarding medications, s/s of worsening condition and f/u appointments. Patient feels comfortable to leave and is appreciative of care. Ambulating to restroom for last void then will discharge via wheelchair. Lisset bedside. Original Note: Patient A/O x 3, reports feeling less SOB this morning. This mornings assessment revealed: Lungs CTA, 98% on RA. Tele on. VSS. Voiding in restroom and intermittent inc. in brief. Patient tolerating diet. BT active. Patient denied dizziness, lightheadedness, SOB or increased WOB with activity. Patient has been ambulating with FWW and SBA. Currently: Patient's IV discontinued for discharge. Patient tolerated. Sat at patients bedside and gave both patient present caregiver Lisset extensive discharge instructions including new medications, Lasix and spironolactone. Extra discharge paperwork printed for Lisset (after I got the Ok from the patient) so that she can follow along if the patient has questions in the future. Patient given further instruction regarding activity, daily weight, f/u with PCP and nipple machine operator, diet and lifestyle modifications. Patient and Lisset verbalized understanding. Patient is currently reading the paperwork in case further questions can be answered. Tele removed.
== END 2021-05-01 15:00 | disposition home or self-care (01) | DRG 292 ==
LOC: ED 21:33 → AC 04-29 07:17
PROVIDERS: Nurse Practitioner Family; Admitting Provider Internal Medicine; Emergency Provider Emergency Medicine; PCP Internal Medicine; Referring Provider Emergency Medicine; Visit Provider Internal Medicine
DX: I11.0 Hypertensive heart disease with heart failure (principal); E87.1 Hypo-osmolality and hyponatremia; N39.0 Urinary tract infection, site not specified; I50.33 Acute on chronic diastolic (congestive) heart failure; I16.0 Hypertensive urgency; R09.02 Hypoxemia; E86.0 Dehydration; I48.0 Paroxysmal atrial fibrillation; I44.7 Left bundle-branch block, unspecified; E78.5 Hyperlipidemia, unspecified; Z20.822 Contact with and (suspected) exposure to COVID-19; K52.9 Noninfective gastroenteritis and colitis, unspecified; R07.9 Chest pain, unspecified
CPT/HCPCS: 36415; 36600; 71045; 80048; 80053; 81001; 81003; 82272; 82550; 82805; 83690; 83735; 83880; 84145; 84484; 85025; 87077; 87086; 87635; 93005; 93306; 94640; 96361; 96374; 97116; 97161; 97530; 99284; 99285; C9803; G0378; C9113; J1940; J2765; J7613

== ENCOUNTER → 2021-05-05 10:11 | Outpatient (CLI) | payer MEDICARE, OTHER, SELFPAY ==
[2021-04-30 11:49] VITALS: BMI 22.6
[2021-05-05 12:25] LABS: BUN Creatinine Ratio 44.3 (6-22); Blood Urea Nitrogen 31 mg/dL (7-17); Carbon Dioxide 30 mmol/L (22-32); Chloride 96 mmol/L (98-107); Estimated Glomerular Filt Rate > 60.0 mL/min (>60); Glucose 115 mg/dL (80-110); HEMOLYSIS < 15 (0-50); Potassium 4.5 mmol/L (3.4-5.1); Sodium 133 mmol/L (137-145)
[2021-05-05 12:27] LABS: NT-proBNP (BNP-Adult 18+) 929 pg/mL (<450)
== END ==
PROVIDERS: PCP Internal Medicine; Referring Provider Nurse Practitioner; Visit Provider Nurse Practitioner
DX: I50.30 Unspecified diastolic (congestive) heart failure (principal); I50.41 Acute combined systolic (congestive) and diastolic (congestive) heart failure
CPT/HCPCS: 36415; 80048; 83880

== ENCOUNTER 2021-08-25 13:51 | Inpatient (IN) | payer MEDICARE, OTHER, SELFPAY ==
[2021-04-30 11:49] VITALS: BMI 22.6
[2021-08-25] VITALS (54 sets, daily range): BP systolic 94–222; BP diastolic 51–100; PULSE 64–101; RESP 10–50; TEMP 31–37; O2SAT 79–100; BMI 23.3
--- NOTE | 2021-08-25 14:03 | DI.RAD.S_ITS ---
PROCEDURE: XR CHEST 1V INDICATIONS: sob, htn, afib. TECHNIQUE: One view of the chest was acquired. COMPARISON: [facility], CR, XR CHEST 1V, 04/28/2021, 21:22. FINDINGS: Surgical changes and devices: None. Lungs and pleura: There is small to moderate left pleural effusion with left upper and lower lobe atelectasis. Underlying left-sided infiltrates cannot be excluded. Chronic emphysematous changes are seen. No gross pneumothorax. Mediastinum: There is tortuous thoracic aorta and aortic arch calcifications. Heart size is enlarged Bones and chest wall: No suspicious bony lesions. Overlying soft tissues appear unremarkable. IMPRESSION: Small to moderate left-sided pleural effusion with left lung atelectasis/infiltrates. COPD. No gross pneumothorax. Dictated by: Eduar Burleson M.D. on 08/25/2021 at 14:41 Approved by: Eduar Burleson M.D. on 08/25/2021 at 14:42
--- NOTE | 2021-08-25 14:04 | ED_ITS ---
HPI - SOB/Dyspnea General Chief Complaint: Shortness of Breath/Dyspnea Stated Complaint: High BP- wants her seen Time Seen by Provider: 08/25/21 14:02 Source: patient and old records reviewed Limitations: other (hard of hearing, difficulty breathing) History of Present Illness HPI Narrative: This is an 81-year-old female who presents with concern for hypertension sent by her primary care physician but patient is acutely dyspneic. She has a history of left bundle branch block, hypertension, dyslipidemia with valvular heart disease, paroxysmal atrial fibrillation and is on daily anticoagulation. Patient is quite hard of hearing and very short of breath and so it is difficult to have a true HPI performed. Patient denies any chest pain or pressure. She does complain of shortness of breath. She is sweaty. She denies any swelling in her extremities. Related Data Home Medications Medication Instructions Recorded Confirmed apixaban 2.5 mg tablet 2.5 mg PO BID 02/05/19 04/28/21 simvastatin 5 mg tablet 5 mg PO DAILY 04/28/21 04/28/21 vitamin K2 100 mcg capsule 100 mcg PO DAILY 04/28/21 04/28/21 Previous Rx's Medication Instructions Recorded amlodipine 5 mg tablet (Norvasc) 5 mg PO DAILY #30 tab 05/01/21 furosemide 20 mg tablet 20 mg PO DAILY #30 tab 05/01/21 nadolol 40 mg tablet 80 mg PO BEDTIME #60 tab 05/01/21 spironolactone 25 mg tablet 25 mg PO DAILY #30 tab 05/01/21 Allergies Allergy/AdvReac Type Severity Reaction Status Date / Time acetaminophen Allergy Verified 08/25/21 14:31 calcium carbonate Allergy Verified 04/28/21 23:32 [From Excedrin Back and Body] ergotamine Allergy Verified 04/28/21 23:32 Sulfa (Sulfonamide Allergy Verified 04/28/21 23:32 Antibiotics) aspirin AdvReac Verified 04/28/21 23:32 [From Excedrin Back and Body] clindamycin AdvReac Verified 04/28/21 23:32 ferrous sulfate AdvReac Verified 04/28/21 23:32 guaifenesin AdvReac Verified 04/28/21 23:32 NSAIDS (Non-Steroidal AdvReac Verified 04/28/21 23:32 Anti-Inflamma Penicillins AdvReac Nausea Verified 04/29/21 18:08 sulfamethoxazole AdvReac Verified 04/28/21 23:32 [From Sulfamethoxazole-Trimethoprim] trimethoprim AdvReac Verified 04/28/21 23:32 [From Sulfamethoxazole-Trimethoprim] all steriods Allergy Uncoded 08/25/21 14:31 Review of Systems Review of Systems ROS Unobtainable: Unobtainable due to medical condition Patient History Medical History Hypertension Social History household members: none lives independently: Yes Smoking Status: Never smoker Smoking Status: Never smoker Substance Use Type: does not use Exam Narrative Exam Narrative: GEN: Elderly appearing female, alert and oriented x 3, patient appears to be in moderate distress. HEENT: Atraumatic, pupils are equal round reactive to light, extraocular movements are intact, nares are clear, there is no conjunctival pallor. Throat is clear without any exudates, erythema, tonsillar enlargement or uvular deviation HEART: Tachycardic and regular rate and rhythm without murmur, clicks, rubs. No carotid bruits, pulses are equal in upper and lower extremities. Mild swelling bilateral lower extremities. LUNGS:Lungs decreased breath sounds bilaterally auscultation, no wheezes, rales, crackles, chest moves symmetrically, positive for tachypnea. Two or 3 word sentences. ABD:bowel sounds normal, soft, non-tender, no guarding, rebound, rigidity, no masses noted, no hepatosplenomegaly :No CVA tenderness MSCL: Non-tender, no muscle atrophy, full range of motion in all extremities. NEURO:CN 2-12 intact SKIN: Patient has poor coloration. Initial Vital Signs Initial Vital Signs: Vital Signs Temperature 97.2 F L 08/25/21 14:02 Pulse Rate 101 H 08/25/21 14:02 Respiratory Rate 30 H 08/25/21 14:02 Blood Pressure 145/99 H 08/25/21 14:02 Pulse Oximetry 79 L 08/25/21 14:02 Scores GCS Ra coma scale eye opening: Spontaneous [place] coma scale verbal response: Orientated Ra coma scale motor response: Obey commands [place] coma scale total score: 15 Course Orders Ordered: ED Orders 08/25/21 14:02 EKG-12 Lead Stat 08/25/21 14:03 XR chest 1V Stat 08/25/21 14:09 C-Reactive Protein Quant Stat COVID19 - ADMIT ([employer] swab/PCR) Stat COVID19 -Nasal swab/Pre-Proc Stat Complete Blood Count AUTO DIFF Stat Comprehensive Metabolic Panel Stat D Dimer Stat Ferritin Stat Lactate (Lactic Acid) Stat Lactate Dehydrogenase Stat NT-proBNP (BNP-Adult 18+) Stat Procalcitonin Stat Troponin & CK Cardiac Panel Stat 08/25/21 14:25 Arterial Blood Gas Stat 08/25/21 15:37 Blood Culture Stat 08/25/21 15:45 CT angio chest PE protocol Stat Discontinued Medications Furosemide (Furosemide 40 Mg/4 Ml Vial) 40 mg IV NOW ONE Stop: 08/25/21 14:03 Last Admin: 08/25/21 14:10 Dose: 40 mg Documented by: EDWARD Nitroglycerin (Nitroglycerin Oint 1 Inch/Gm Oint...G.) 1 inch TOP NOW ONE Stop: 08/25/21 14:54 Last Admin: 08/25/21 15:07 Dose: 1 inch Documented by: MAYANK Consultations Consultation #1: Dr. Stephens, plan for CT angio of chest. Reviewed patient's DPOA paperwork and wishes. Patient appears to be hypertensive emergency/CHF and is improved on BiPAP with nitro paste and Lasix here in the department. Time: 15:48 Vital Signs Vital signs: Vital Signs - 8 hr 08/25/21 14:02 08/25/21 14:17 08/25/21 14:30 Temperature 97.2 F L Pulse Rate 101 H 96 H 95 H Respiratory Rate 30 H 27 H 46 H Blood Pressure 145/99 H 167/95 H Pulse Oximetry 79 L 100 100 08/25/21 14:31 08/25/21 14:45 08/25/21 14:49 Temperature Pulse Rate 96 H 97 H 97 H Respiratory Rate 48 H 30 H 33 H Blood Pressure 211/94 H 217/99 H 210/95 H Pulse Oximetry 100 100 100 08/25/21 15:00 08/25/21 15:01 08/25/21 15:07 Temperature Pulse Rate 98 H 100 H 97 H Respiratory Rate 41 H 37 H Blood Pressure 222/100 H 222/100 H Pulse Oximetry 100 100 08/25/21 15:10 08/25/21 15:11 08/25/21 15:18 Temperature Pulse Rate 97 H 88 Respiratory Rate 28 H 17 Blood Pressure 211/78 H 211/78 H 169/78 H Pulse Oximetry 100 96 08/25/21 15:20 08/25/21 15:21 08/25/21 15:24 Temperature Pulse Rate 88 88 86 Respiratory Rate 16 19 16 Blood Pressure 158/74 H 152/72 H 137/61 Pulse Oximetry 94 93 93 08/25/21 15:29 08/25/21 15:30 08/25/21 15:38 Temperature Pulse Rate 82 72 69 Respiratory Rate 22 17 16 Blood Pressure 124/66 143/68 H 118/55 L Pulse Oximetry 94 94 94 08/25/21 15:39 08/25/21 15:42 08/25/21 15:50 Temperature Pulse Rate 88 85 81 Respiratory Rate 21 17 15 Blood Pressure 129/58 L 119/56 L 98/53 L Pulse Oximetry 93 95 93 08/25/21 15:54 08/25/21 16:00 08/25/21 16:02 Temperature Pulse Rate 84 74 75 Respiratory Rate 18 38 H 33 H Blood Pressure 114/57 L 164/73 H Pulse Oximetry 95 96 96 08/25/21 16:10 08/25/21 16:14 Temperature Pulse Rate 74 76 Respiratory Rate 25 H 50 H Blood Pressure 166/76 H 174/69 H Pulse Oximetry 99 100 MDM - SOB/Dyspnea Lab Data Result diagrams: 08/25/21 14:09 08/25/21 14:09 Labs: Lab Results 08/25/21 08/25/21 08/25/21 Range/Units 14:09 14:09 14:09 WBC 11.8 H (4.5-11.0) X10^3/uL RBC 4.13 (4.0-5.2) X10^6/uL Hgb 12.6 (12.0-16.0) g/dL Hct 37.9 (36-46) % MCV 91.7 (80-100) fL MCH 30.4 (26-34) PG MCHC 33.2 (30-36) % RDW 14.5 (11.6-14.8) % Plt Count 233 (150-400) X10^3/uL Neut % (Auto) 85.9 H (50-75) % Lymph % (Auto) 5.5 L (25-40) % [place] % (Auto) 7.4 (3-14) % Eos % (Auto) 0.6 L (2-4) % Baso % (Auto) 0.6 (0-2) % Neut # (Auto) 81740 H (4215-3925) /uL Lymph # (Auto) 600 L (6934-8173) /uL [place] # (Auto) 900 (0-900) /uL Eos # (Auto) 100 (0-450) /uL Baso # (Auto) 100 (0-100) /uL D-Dimer 645 H (<230) ng/mL ABG pH (7.35-7.45) ABG pCO2 (35-45) mmHg ABG pO2 (80-100) mmHg ABG HCO3 (22-26) mmol/L ABG Total CO2 (21-31) mmol/L ABG O2 Saturation (95-100) % ABG Base Excess (-2-2) mmol/L FiO2 Sodium 128 L (137-145) mmol/L Potassium 4.9 (3.4-5.1) mmol/L Chloride 89 L (98-107) mmol/L Carbon Dioxide 32 (22-32) mmol/L BUN 33 H (7-17) mg/dL Creatinine 0.67 (0.52-1.04) mg/dL Estimated GFR > 60.0 (>60) mL/min BUN/Creatinine Ratio 49.3 H (6-22) Glucose 202 H (80-110) mg/dL Lactate (0.7-2.1) mmol/L Calcium 9.7 (8.4-10.2) mg/dL Ferritin 37 (11-264) ng/mL Total Bilirubin 0.9 (0.2-1.3) mg/dL AST 41 H (14-36) IU/L ALT 41 H (<35) IU/L Alkaline Phosphatase 86 (38-126) U/L Lactate Dehydrogenase (313-618) U/L Total Creatine Kinase 66 (30-135) U/L CK-MB (CK-2) TNP CK-MB (CK-2) Rel Index TNP Troponin I 0.030 (0.01-0.034) ng/mL C-Reactive Protein < 0.5 (<1.0) mg/dL NT-Pro-B Natriuret Pep (<450) pg/mL Total Protein 8.6 H (6.3-8.2) g/dL Albumin 4.7 (3.5-5.0) g/dL Globulin 3.9 (1.7-4.1) g/dL Albumin/Globulin Ratio 1.2 (1.0-2.8) Procalcitonin 0.03 (<0.5) ng/mL SARS-CoV-2 (PCR) (Negative) 08/25/21 08/25/21 08/25/21 Range/Units 14:09 14:09 14:09 WBC (4.5-11.0) X10^3/uL RBC (4.0-5.2) X10^6/uL Hgb (12.0-16.0) g/dL Hct (36-46) % MCV (80-100) fL MCH (26-34) PG MCHC (30-36) % RDW (11.6-14.8) % Plt Count (150-400) X10^3/uL Neut % (Auto) (50-75) % Lymph % (Auto) (25-40) % [place] % (Auto) (3-14) % Eos % (Auto) (2-4) % Baso % (Auto) (0-2) % Neut # (Auto) (6354-6750) /uL Lymph # (Auto) (2016-9462) /uL [place] # (Auto) (0-900) /uL Eos # (Auto) (0-450) /uL Baso # (Auto) (0-100) /uL D-Dimer (<230) ng/mL ABG pH (7.35-7.45) ABG pCO2 (35-45) mmHg ABG pO2 (80-100) mmHg ABG HCO3 (22-26) mmol/L ABG Total CO2 (21-31) mmol/L ABG O2 Saturation (95-100) % ABG Base Excess (-2-2) mmol/L FiO2 Sodium (137-145) mmol/L Potassium (3.4-5.1) mmol/L Chloride (98-107) mmol/L Carbon Dioxide (22-32) mmol/L BUN (7-17) mg/dL Creatinine (0.52-1.04) mg/dL Estimated GFR (>60) mL/min BUN/Creatinine Ratio (6-22) Glucose (80-110) mg/dL Lactate 1.1 (0.7-2.1) mmol/L Calcium (8.4-10.2) mg/dL Ferritin (11-264) ng/mL Total Bilirubin (0.2-1.3) mg/dL AST (14-36) IU/L ALT (<35) IU/L Alkaline Phosphatase (38-126) U/L Lactate Dehydrogenase 609 (313-618) U/L Total Creatine Kinase (30-135) U/L CK-MB (CK-2) CK-MB (CK-2) Rel Index Troponin I (0.01-0.034) ng/mL C-Reactive Protein (<1.0) mg/dL NT-Pro-B Natriuret Pep 3460 H (<450) pg/mL Total Protein (6.3-8.2) g/dL Albumin (3.5-5.0) g/dL Globulin (1.7-4.1) g/dL Albumin/Globulin Ratio (1.0-2.8) Procalcitonin (<0.5) ng/mL SARS-CoV-2 (PCR) Negative (Negative) 08/25/21 08/25/21 Range/Units 14:09 14:25 WBC (4.5-11.0) X10^3/uL RBC (4.0-5.2) X10^6/uL Hgb (12.0-16.0) g/dL Hct (36-46) % MCV (80-100) fL MCH (26-34) PG MCHC (30-36) % RDW (11.6-14.8) % Plt Count (150-400) X10^3/uL Neut % (Auto) (50-75) % Lymph % (Auto) (25-40) % [place] % (Auto) (3-14) % Eos % (Auto) (2-4) % Baso % (Auto) (0-2) % Neut # (Auto) (5563-0524) /uL Lymph # (Auto) (8599-4954) /uL [place] # (Auto) (0-900) /uL Eos # (Auto) (0-450) /uL Baso # (Auto) (0-100) /uL D-Dimer (<230) ng/mL ABG pH 7.35 (7.35-7.45) ABG pCO2 59.7 H (35-45) mmHg ABG pO2 430 H* (80-100) mmHg ABG HCO3 33 H (22-26) mmol/L ABG Total CO2 35 H (21-31) mmol/L ABG O2 Saturation 100 (95-100) % ABG Base Excess 7.0 H (-2-2) mmol/L FiO2 100 Sodium (137-145) mmol/L Potassium (3.4-5.1) mmol/L Chloride (98-107) mmol/L Carbon Dioxide (22-32) mmol/L BUN (7-17) mg/dL Creatinine (0.52-1.04) mg/dL Estimated GFR (>60) mL/min BUN/Creatinine Ratio (6-22) Glucose (80-110) mg/dL Lactate (0.7-2.1) mmol/L Calcium (8.4-10.2) mg/dL Ferritin (11-264) ng/mL Total Bilirubin (0.2-1.3) mg/dL AST (14-36) IU/L ALT (<35) IU/L Alkaline Phosphatase (38-126) U/L Lactate Dehydrogenase (313-618) U/L Total Creatine Kinase (30-135) U/L CK-MB (CK-2) CK-MB (CK-2) Rel Index Troponin I (0.01-0.034) ng/mL C-Reactive Protein (<1.0) mg/dL NT-Pro-B Natriuret Pep (<450) pg/mL Total Protein (6.3-8.2) g/dL Albumin (3.5-5.0) g/dL Globulin (1.7-4.1) g/dL Albumin/Globulin Ratio (1.0-2.8) Procalcitonin (<0.5) ng/mL SARS-CoV-2 (PCR) Negative (Negative) ABG Data ABG results: PH is 7.35 CO2 of 59, O2 of 430, bicarb a 33 with 100% FiO2 at 15 L non-rebreather. Interpretation: Respiratory acidosis, compensated. Imaging Data Chest x-ray: Radiologist's Impression: [address] [address] XRay Report Signed Patient: Maame Sanchez I MR#: [id number] : 1940 Acct:[id number] Age/Sex: 81 / F Date of Service: 08/25/21 Loc: Accession Number: [id number] ?? Procedure: XR chest 1V Ordering Provider: Symone Gan D.O. PROCEDURE:? XR CHEST 1V ? INDICATIONS:? sob, htn, afib. ? TECHNIQUE:? One view of the chest was acquired.? ? COMPARISON:? [facility], CR, XR CHEST 1V, 04/28/2021, 21:22. ? FINDINGS:? ? Surgical changes and devices:? None.? ? Lungs and pleura:? There is small to moderate left pleural effusion with left upper and lower lobe atelectasis.? Underlying left-sided infiltrates cannot be excluded.? Chronic emphysematous changes are seen.? No gross pneumothorax. ? Mediastinum:? There is tortuous thoracic aorta and aortic arch calcifications.? Heart size is enlarged ? Bones and chest wall:? No suspicious bony lesions.? Overlying soft tissues appear unremarkable.? ? IMPRESSION:? Small to moderate left-sided pleural effusion with left lung atelectasis/infiltrates.? COPD.? No gross pneumothorax. ? ? Dictated by: Eduar Burleson M.D. on 08/25/2021 at 14:41 ? ? Approved by: Eduar Burleson M.D. on 08/25/2021 at 14:42?? CT scan - chest: Radiologist's Impression: [address] [address] [address] Scan Report Signed Patient: Maame Sanchez I MR#: [id number] : 1940 Acct:[id number] Age/Sex: 81 / F Date of Service: 08/25/21 Loc: 90D-1 Accession Number: [id number] ?? Procedure: CT angio chest PE protocol Ordering Provider: Symone Gan D.O. PROCEDURE:? CT ANGIO CHEST PE PROTOCOL ? INDICATIONS:? htn, hypoxia, hx carcinoid trach in past ? TECHNIQUE:? After the administration of intravenous contrast, 2 mm thick sections acquired from the pulmonary apices to the posterior costophrenic angles.? 3-dimensional maximum intensity projection (MIP) coronal and sagittal reformats were then acquired through the thorax.? For radiation dose reduction, the following was used:? automated exposure control, adjustment of mA and/or kV according to patient size.? ? COMPARISON:? None. ? FINDINGS:? Image quality:? Excellent.? ? Pulmonary arteries:? Pulmonary arteries demonstrate no intraluminal filling defects to suggest central pulmonary embolism.? Enlargement of the right main pulmonary artery, measuring up to 3.2 cm, which may reflect pulmonary hypertension. ? Lungs and pleura:? Mild to moderate bilateral pleural effusions with some left loculation. Interlobular septal thickening with mosaic ground-glass attenuation.? Calcified granulomas in the left lower lobe. ? The central and peripheral airways are patent.? ? Mediastinum:? Mild cardiomegaly with biatrial enlargement.? Trace pericardial effusion/thickening.? Coronary artery calcifications are seen. ? No mediastinal or hilar adenopathy.? ? Dilatation of the ascending thoracic aorta, measuring up to 4.2 cm.? Limited opacification of the aorta demonstrates no gross evidence of dissection.? Right aberrant subclavian artery with dilatation. ? Esophagus is normal in caliber, without hiatal hernia.? ? Bones and chest wall:? No suspicious bony lesions.? Multifocal degenerative changes. ? Thyroid gland is not well delineated.? ? No axillary or supraclavicular adenopathy.? ? Abdomen:? No significant abnormality.? Bilateral renal hypoattenuating lesions, most consistent with cysts. ? IMPRESSION:? 1. No CT evidence of pulmonary embolism. 2. Interlobular septal thickening, mild cardiomegaly, mosaic ground-glass attenuation and pleural effusions, compatible with pulmonary edema. 3. Enlargement of the right main pulmonary artery, suggesting pulmonary hypertension. 4. Dilatation of the ascending thoracic aorta , measuring up to 4.2 cm. ? ? Dictated by: Bulmaro Torrez M.D. on 08/25/2021 at 16:43 ? ? Approved by: Bulmaro Torrez M.D. on 08/25/2021 at 16:58?? ECG Data Attestation: I personally reviewed and interpreted this ECG as follows: Prior ECG tracings: available for review Interpretation: Sinus rhythm left axis deviation left bundle-branch block. Rate of 90 6p are 190 QRS of 148 QTC of 530. Patient has a prior from 04/29/[address] segments except for V6 is inverted today. MDM Narrative Medical decision making narrative: This is an 81-year-old female who is sent from her doctor's office for hypertension who is acutely hypoxic. Patient responded to non-rebreather but was still had significant work of breathing. Her blood pressure was quite elevated in the 200 range. Patient labs show an elevated BNP but troponin is negative. Patient's dimer is elevated in the 640s which is outside her age-related cut off. She is quite hypertensive so seems less likely to be a PE and has had 1 prior admission for somewhat similar symptoms and responded well to antihypertensives and Lasix. Patient had nitro placed placed and had good improvement of her blood pressure she also received Lasix. After being placed on BiPAP her work of breathing improved considerably and her blood pressure continued to improve and her nitropaste was removed. Discussed with the hospitalist, CT PE was ordered which is negative but does show changes consistent with pulmonary edema as well as pleural effusion. 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 according to hand-type paperwork that they provided. She does have 2 DPOA is who I was in contact with Charla Reardon who did verify patient is DNR/DNI status which was also verified by her caregiver who is not her DPOA. Phone numbers for both were included in the chart as well as her living will. When asked directly to the patient she did not indicate otherwise. She has had mildly hyponatremic. Patient case discussed with hospitalist, Dr. Stephens who accepts for admission. Critical Care Time Critical Care Time Critical Care Time: Yes Total Critical Care Time: 45 Attestation: The high probability of a clinically significant, sudden or life threatening deterioration of the [] system(s) required my full and direct attention, intervention and personal management. The aggregate critical care time was [] minutes. This time is in addition to time spent performing reported procedures but includes the following: [] Data Review and interpretation [] Patient assessment and monitoring of vital signs [] Documentation [] Medication orders and management Discharge Plan Departure Patient Disposition: Admitted As Inpatient Clinical Impression: Acute exacerbation of CHF (congestive heart failure), Acute respiratory failure with hypoxia Admit Date/Time: 08/25/21 16:14 Admit Provider: Lorraine Stephens
[2021-08-25] MEDS: FUROSEMIDE 40 MG/4 ML VIAL IV ×2 (14:10→20:34)
[2021-08-25 14:17] LABS: Add Manual Diff / Slide Review NO; Basophils Absolute Auto 100 /uL (0-100); Basophils Percent Auto 0.6 % (0-2); Eosinophils Absolute Auto 100 /uL (0-450); Eosinophils Percent Auto 0.6 % (2-4); Hematocrit 37.9 % (36-46); Hemoglobin 12.6 g/dL (12.0-16.0); Lymphocytes Absolute Auto 600 /uL (1100-4500); Lymphocytes Percent Auto 5.5 % (25-40); Mean Corpuscular HGB Conc 33.2 % (30-36); Mean Corpuscular Hemoglobin 30.4 PG (26-34); Mean Corpuscular Volume 91.7 fL (80-100); Monocytes Absolute Auto 900 /uL (0-900); Monocytes Percent Auto 7.4 % (3-14); Neutrophils Absolute Auto 10100 /uL (1500-7000); Neutrophils Percent Auto 85.9 % (50-75); Platelet Count 233 X10^3/uL (150-400); Red Blood Cell Count 4.13 X10^6/uL (4.0-5.2); Red Cell Distribution Width 14.5 % (11.6-14.8); White Blood Cell Count 11.8 X10^3/uL (4.5-11.0)
[2021-08-25 14:36] LABS: D Dimer 645 ng/mL (<230)
[2021-08-25 14:42] LABS: Lactate Dehydrogenase 609 U/L (313-618)
[2021-08-25 14:43] LABS: Lactate (Lactic Acid) 1.1 mmol/L (0.7-2.1)
[2021-08-25 14:44] LABS: Alanine Aminotransferase 41 IU/L (<35); Albumin 4.7 g/dL (3.5-5.0); Albumin Globulin Ratio 1.2 (1.0-2.8); Alkaline Phosphatase 86 U/L (38-126); Aspartate Aminotransferase 41 IU/L (14-36); BUN Creatinine Ratio 49.3 (6-22); Bilirubin Total 0.9 mg/dL (0.2-1.3); Blood Urea Nitrogen 33 mg/dL (7-17); C-Reactive Protein Quant < 0.5 mg/dL (<1.0); Calcium 9.7 mg/dL (8.4-10.2); Carbon Dioxide 32 mmol/L (22-32); Chloride 89 mmol/L (98-107); Creatine Kinase 66 U/L (30-135); Estimated Glomerular Filt Rate > 60.0 mL/min (>60); Globulin 3.9 g/dL (1.7-4.1); Glucose 202 mg/dL (80-110); HEMOLYSIS < 15 (0-50); Potassium 4.9 mmol/L (3.4-5.1); Sodium 128 mmol/L (137-145); Total Protein 8.6 g/dL (6.3-8.2)
[2021-08-25 14:51] LABS: NT-proBNP (BNP-Adult 18+) 3460 pg/mL (<450)
[2021-08-25 14:59] LABS: Procalcitonin 0.03 ng/mL (<0.5)
[2021-08-25 15:02] LABS: COVID19 -Nasal RAPID Negative (Negative)
[2021-08-25] MEDS: NITROGLYCERIN OINT 1 INCH/GM OINT...G. TOP (15:07)
[2021-08-25 15:17] LABS: Ferritin 37 ng/mL (11-264)
[2021-08-25 15:41] LABS: COVID19 - ADMIT (NP swab/PCR) Negative (Negative)
--- NOTE | 2021-08-25 15:45 | DI.CT.S_ITS ---
PROCEDURE: CT ANGIO CHEST PE PROTOCOL INDICATIONS: htn, hypoxia, hx carcinoid trach in past TECHNIQUE: After the administration of intravenous contrast, 2 mm thick sections acquired from the pulmonary apices to the posterior costophrenic angles. 3-dimensional maximum intensity projection (MIP) coronal and sagittal reformats were then acquired through the thorax. For radiation dose reduction, the following was used: automated exposure control, adjustment of mA and/or kV according to patient size. COMPARISON: None. FINDINGS: Image quality: Excellent. Pulmonary arteries: Pulmonary arteries demonstrate no intraluminal filling defects to suggest central pulmonary embolism. Enlargement of the right main pulmonary artery, measuring up to 3.2 cm, which may reflect pulmonary hypertension. Lungs and pleura: Mild to moderate bilateral pleural effusions with some left loculation. Interlobular septal thickening with mosaic ground-glass attenuation. Calcified granulomas in the left lower lobe. The central and peripheral airways are patent. Mediastinum: Mild cardiomegaly with biatrial enlargement. Trace pericardial effusion/thickening. Coronary artery calcifications are seen. No mediastinal or hilar adenopathy. Dilatation of the ascending thoracic aorta, measuring up to 4.2 cm. Limited opacification of the aorta demonstrates no gross evidence of dissection. Right aberrant subclavian artery with dilatation. Esophagus is normal in caliber, without hiatal hernia. Bones and chest wall: No suspicious bony lesions. Multifocal degenerative changes. Thyroid gland is not well delineated. No axillary or supraclavicular adenopathy. Abdomen: No significant abnormality. Bilateral renal hypoattenuating lesions, most consistent with cysts. IMPRESSION: 1. No CT evidence of pulmonary embolism. 2. Interlobular septal thickening, mild cardiomegaly, mosaic ground-glass attenuation and pleural effusions, compatible with pulmonary edema. 3. Enlargement of the right main pulmonary artery, suggesting pulmonary hypertension. 4. Dilatation of the ascending thoracic aorta , measuring up to 4.2 cm. Dictated by: Bulmaro Torrez M.D. on 08/25/2021 at 16:43 Approved by: Bulmaro Torrez M.D. on 08/25/2021 at 16:58
--- NOTE | 2021-08-25 15:54 | PC.NURSE ---
nitro paste removed per provider.
[2021-08-25 16:37] LABS: PCO2 ABG 59.7 mmHg (35-45); pH ABG 7.35 (7.35-7.45)
[2021-08-25 16:38] LABS: HCO3 ABG 33 mmol/L (22-26); PO2 ABG 430 mmHg (80-100); TCO2 ABG 35 mmol/L (21-31)
[2021-08-25 16:39] LABS: Fractionated Inspired Oxygen 100; Oxygen Saturation ABG 100 % (95-100)
--- NOTE | 2021-08-25 20:14 | P.TELICUCN_ITS ---
History of Present Illness Consult details Chief complaint: High BP- wants her seen :: This patient was seen via real time interactive two-way audiovisual telecommunication. 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 Deneis any CP, have mild SOB while on 3 L NC. ? Hypertensive emergency Pulmonary edema with bilateral pleural effusions Acute on chronic diastolic CHF exacerbation Acute hypoxic resp failure Acute on chronic hypervolemic hyponatremia Dilatation of the ascending thoracic aorta, measuring up to 4.2 cm with no dissection ? 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 Rec On 3 L NC, weaned off Biapa ( may use Bipap as needed) IV Lasix 40 mg Q6H SBP improved 210?160 over the past 6 hr, Goal 150 , resume home antihypertensive meds If needd may add Esmolol drip if goal isn?t achieved BMP Q12h Card consult and 2 Echo Fluid restriction to 1L/ day, No IV fluid Serum & urine osm and lytes Plan was discussed with ACUTE DIALYSIS NURSE & RN I witnessed the NR asking about code status, patient wishes DNR/DNI code status PFSH Medical History Hypertension Social History household members: none lives independently: Yes Smoking Status: Never smoker alcohol intake: never Current Medications Current Medications Medications: Home Medications apixaban 2.5 mg tablet 2.5 mg PO BID 02/05/19 [History Confirmed 08/25/21] simvastatin 5 mg tablet 5 mg PO DAILY 04/28/21 [History Confirmed 08/25/21] vitamin K2 100 mcg capsule 100 mcg PO DAILY 04/28/21 [History Confirmed 04/28/21] amlodipine 5 mg tablet (Norvasc) 5 mg PO DAILY #30 tab 05/01/21 [Rx Confirmed 1 ] spironolactone 25 mg tablet 25 mg PO DAILY #30 tab 05/01/21 [Rx] nadolol 40 mg tablet 40 mg PO BEDTIME 08/25/21 [History Confirmed 08/25/21] Exam Vital Signs (past 8 hours): - 08/25/21 14:02 08/25/21 14:17 08/25/21 14:30 Temperature 97.2 F L Pulse Rate 101 H 96 H 95 H Respiratory Rate 30 H 27 H 46 H Blood Pressure 145/99 H 167/95 H Pulse Oximetry 79 L 100 100 08/25/21 14:31 08/25/21 14:45 08/25/21 14:49 Temperature Pulse Rate 96 H 97 H 97 H Respiratory Rate 48 H 30 H 33 H Blood Pressure 211/94 H 217/99 H 210/95 H Pulse Oximetry 100 100 100 08/25/21 15:00 08/25/21 15:01 08/25/21 15:07 Temperature Pulse Rate 98 H 100 H 97 H Respiratory Rate 41 H 37 H Blood Pressure 222/100 H 222/100 H Pulse Oximetry 100 100 08/25/21 15:10 08/25/21 15:11 08/25/21 15:18 Temperature Pulse Rate 97 H 88 Respiratory Rate 28 H 17 Blood Pressure 211/78 H 211/78 H 169/78 H Pulse Oximetry 100 96 08/25/21 15:20 08/25/21 15:21 08/25/21 15:24 Temperature Pulse Rate 88 88 86 Respiratory Rate 16 19 16 Blood Pressure 158/74 H 152/72 H 137/61 Pulse Oximetry 94 93 93 08/25/21 15:29 08/25/21 15:30 08/25/21 15:38 Temperature Pulse Rate 82 72 69 Respiratory Rate 22 17 16 Blood Pressure 124/66 143/68 H 118/55 L Pulse Oximetry 94 94 94 08/25/21 15:39 08/25/21 15:42 08/25/21 15:50 Temperature Pulse Rate 88 85 81 Respiratory Rate 21 17 15 Blood Pressure 129/58 L 119/56 L 98/53 L Pulse Oximetry 93 95 93 08/25/21 15:54 08/25/21 16:00 08/25/21 16:02 Temperature Pulse Rate 84 74 75 Respiratory Rate 18 38 H 33 H Blood Pressure 114/57 L 164/73 H Pulse Oximetry 95 96 96 08/25/21 16:10 08/25/21 16:14 08/25/21 16:21 Temperature Pulse Rate 74 76 80 Respiratory Rate 25 H 50 H 49 H Blood Pressure 166/76 H 174/69 H 165/77 H Pulse Oximetry 99 100 95 08/25/21 16:30 08/25/21 16:41 08/25/21 16:50 Temperature Pulse Rate 87 82 79 Respiratory Rate 24 12 15 Blood Pressure 173/81 H 138/64 122/58 L Pulse Oximetry 97 96 95 08/25/21 17:00 08/25/21 17:10 08/25/21 17:20 Temperature Pulse Rate 77 64 79 Respiratory Rate 14 15 15 Blood Pressure 105/51 L 94/51 L 112/53 L Pulse Oximetry 95 95 96 08/25/21 17:30 08/25/21 17:40 08/25/21 17:49 Temperature Pulse Rate 78 80 80 Respiratory Rate 13 15 15 Blood Pressure 116/58 L 122/59 L Pulse Oximetry 96 96 97 08/25/21 17:50 08/25/21 18:00 08/25/21 18:10 Temperature Pulse Rate 64 78 78 Respiratory Rate 13 15 15 Blood Pressure 117/56 L 126/60 118/60 Pulse Oximetry 97 97 96 08/25/21 18:21 08/25/21 18:30 08/25/21 18:41 Temperature Pulse Rate 82 82 78 Respiratory Rate 31 H 23 26 H Blood Pressure 127/63 169/75 H 183/79 H Pulse Oximetry 95 98 99 08/25/21 18:50 08/25/21 19:00 08/25/21 19:10 Temperature Pulse Rate 78 75 76 Respiratory Rate 26 H 26 H 28 H Blood Pressure 187/84 H 176/81 H 196/77 H Pulse Oximetry 99 96 98 08/25/21 19:14 08/25/21 19:31 Temperature 98.4 F Pulse Rate 90 96 H Respiratory Rate 27 H 28 H Blood Pressure 176/81 H 169/77 H Pulse Oximetry 98 98 Fraction of Inspired Oxygen 25 Oxygen Delivery Method Nasal Cannula Oxygen Flow Rate 2 Objective Labs Result Diagrams: 08/25/21 14:09 08/25/21 14:09 Labs: Laboratory Results - last 24 hr 08/25/21 08/25/21 08/25/21 14:09 14:09 14:09 WBC 11.8 H RBC 4.13 Hgb 12.6 Hct 37.9 MCV 91.7 MCH 30.4 MCHC 33.2 RDW 14.5 Plt Count 233 Neut % (Auto) 85.9 H Lymph % (Auto) 5.5 L [place] % (Auto) 7.4 Eos % (Auto) 0.6 L Baso % (Auto) 0.6 Neut # (Auto) 53300 H Lymph # (Auto) 600 L [place] # (Auto) 900 Eos # (Auto) 100 Baso # (Auto) 100 D-Dimer 645 H ABG pH ABG pCO2 ABG pO2 ABG HCO3 ABG Total CO2 ABG O2 Saturation ABG Base Excess FiO2 Sodium 128 L Potassium 4.9 Chloride 89 L Carbon Dioxide 32 BUN 33 H Creatinine 0.67 Estimated GFR > 60.0 BUN/Creatinine Ratio 49.3 H Glucose 202 H Lactate Calcium 9.7 Ferritin 37 Total Bilirubin 0.9 AST 41 H ALT 41 H Alkaline Phosphatase 86 Lactate Dehydrogenase Total Creatine Kinase 66 CK-MB (CK-2) TNP CK-MB (CK-2) Rel Index TNP Troponin I 0.030 C-Reactive Protein < 0.5 NT-Pro-B Natriuret Pep Total Protein 8.6 H Albumin 4.7 Globulin 3.9 Albumin/Globulin Ratio 1.2 Procalcitonin 0.03 SARS-CoV-2 (PCR) 08/25/21 08/25/21 08/25/21 14:09 14:09 14:09 WBC RBC Hgb Hct MCV MCH MCHC RDW Plt Count Neut % (Auto) Lymph % (Auto) [place] % (Auto) Eos % (Auto) Baso % (Auto) Neut # (Auto) Lymph # (Auto) [place] # (Auto) Eos # (Auto) Baso # (Auto) D-Dimer ABG pH ABG pCO2 ABG pO2 ABG HCO3 ABG Total CO2 ABG O2 Saturation ABG Base Excess FiO2 Sodium Potassium Chloride Carbon Dioxide BUN Creatinine Estimated GFR BUN/Creatinine Ratio Glucose Lactate 1.1 Calcium Ferritin Total Bilirubin AST ALT Alkaline Phosphatase Lactate Dehydrogenase 609 Total Creatine Kinase CK-MB (CK-2) CK-MB (CK-2) Rel Index Troponin I C-Reactive Protein NT-Pro-B Natriuret Pep 3460 H Total Protein Albumin Globulin Albumin/Globulin Ratio Procalcitonin SARS-CoV-2 (PCR) Negative 08/25/21 08/25/21 14:09 14:25 WBC RBC Hgb Hct MCV MCH MCHC RDW Plt Count Neut % (Auto) Lymph % (Auto) [place] % (Auto) Eos % (Auto) Baso % (Auto) Neut # (Auto) Lymph # (Auto) [place] # (Auto) Eos # (Auto) Baso # (Auto) D-Dimer ABG pH 7.35 ABG pCO2 59.7 H ABG pO2 430 H* ABG HCO3 33 H ABG Total CO2 35 H ABG O2 Saturation 100 ABG Base Excess 7.0 H FiO2 100 Sodium Potassium Chloride Carbon Dioxide BUN Creatinine Estimated GFR BUN/Creatinine Ratio Glucose Lactate Calcium Ferritin Total Bilirubin AST ALT Alkaline Phosphatase Lactate Dehydrogenase Total Creatine Kinase CK-MB (CK-2) CK-MB (CK-2) Rel Index Troponin I C-Reactive Protein NT-Pro-B Natriuret Pep Total Protein Albumin Globulin Albumin/Globulin Ratio Procalcitonin SARS-CoV-2 (PCR) Negative Assessment & Plan Time Spent With Patient Critical Care time: I spent a total of [] minutes of critical care time on this patient's care today; this time is exclusive of procedural time.
--- NOTE | 2021-08-25 20:15 | PM.HP.1 ---
History of Present Illness History of Present Illness Date Patient Seen: 08/25/21 Time Patient Seen: 20:00 Chief complaint: High BP- wants her seen Narrative: Maame Sanchez is a delightful 81-year-old female who presents with concern for hypertension sent by her primary care physician but patient is acutely dyspneic.? She has a history of left bundle branch block, hypertension, dyslipidemia with valvular heart disease, paroxysmal atrial fibrillation and is on daily anticoagulation.? Patient is quite hard of hearing and very short of breath and so it is difficult to have a true HPI performed.?Patient is unable to complete full sentences without significant SOB. Patient states that she had previously been on Lasix and spironolactone but that these medications had been stopped back in May by her PCP Dr. Pizarro. The patient notes that she began having increasing shortness of breath and fatigue approximately 2 weeks ago and has only continued to worsen. She denies swelling of her extremities, Chest pain. pressure, numbness tingling, weakness, abdominal pain, nausea, vomiting, diarrhea, chills, urinary symptoms, falls, recent injury illness or trauma. Patient denies any recent changes to her medications. Initial vitals upon admit temp 97.2?, BP 183/79, HR 78, tachypneic RR 26, O2 saturation 99% on 3 L nasal cannula. Patient continues to be significantly short of breath even with supplementary oxygen at this time. In the ED patient had been using intermittent BiPAP as needed for symptom relief, her intial symptoms SOB & HTN urgency improved in ED with Lasix, Bipap, and Nitro paste. Initial ABGs pH 7.35, pCO2 59.7, PO2 430, HC03 33, TCO2 35, O2 sat 100%, BE 7.0, FiO2 100. Patient has elevated WBC 11.8, with a left shift neutrophils 10,100, sodium 128 patient suffers from chronic hyponatremia 129-130's, chloride 89, BUN 33, glucose 2 O2, AST 41, ALT 44. Patient had an elevated dimer 645, CTA was performed was negative for PE was positive for pulmonary edema, pleural effusions and possible pulmonary hypertension. Patient CXR demonstrated small to moderate left-sided pleural effusion with left lung atelectasis/infiltrates.? COPD.? No gross pneumothorax. Patient's lactate, LD, procalcitonin, and CRP were all normal. Patient's initial troponin 0.030, BNP 3460, total protein 8.6. Intial EKG Sinus rhythm left axis deviation left bundle-branch block.? Rate of 90 6p are 190 QRS of 148 QTC of 530.? Patient has a prior from 04/29/[address] segments except for V6 is inverted today.? Patient admitted for acute hypercapnic hypoxic respiratory failure due to hypertensive urgency and heart failure exacerbation. Patient History Medical History (Updated 08/25/21 @ 20:42 by FRANCISCO Guerin-SOCRATES) Chronic hyponatremia Essential (primary) hypertension Heart failure with preserved ejection fraction Hypertension Insomnia Paroxysmal atrial fibrillation Sleep apnea Valvular heart disease Surgical History (Updated 08/25/21 @ 20:40 by KAUSHIK Guerin) History of lung surgery Family & Social History Family History Mother Congestive heart failure Father Patient killed Social History: household members none lives independently Yes Safety & Behavioral: Feels Safe in Current No Environment Been Physically Hurt or No Threatened By a Person Suicidal Ideation Description None Suicide Plan Description No Plan Tobacco & Substance use: Smoking Status Never smoker alcohol intake never Substance Use Type does not use Meds Home Medications and Allergies Home Medications Medication Instructions Recorded Confirmed Type apixaban 2.5 mg tablet 2.5 mg PO BID 02/05/19 08/25/21 History simvastatin 5 mg tablet 5 mg PO DAILY 04/28/21 08/25/21 History amlodipine 5 mg tablet (Norvasc) 5 mg PO DAILY #30 tab 05/01/21 08/25/21 Rx nadolol 40 mg tablet 40 mg PO BEDTIME 08/25/21 08/25/21 History Allergies Allergy/AdvReac Type Severity Reaction Status Date / Time acetaminophen Allergy Verified 08/25/21 14:31 calcium carbonate Allergy Verified 04/28/21 23:32 [From Excedrin Back and Body] ergotamine Allergy Verified 04/28/21 23:32 Sulfa (Sulfonamide Allergy Verified 04/28/21 23:32 Antibiotics) aspirin AdvReac Verified 04/28/21 23:32 [From Excedrin Back and Body] clindamycin AdvReac Verified 04/28/21 23:32 ferrous sulfate AdvReac Verified 04/28/21 23:32 guaifenesin AdvReac Verified 04/28/21 23:32 NSAIDS (Non-Steroidal AdvReac Verified 04/28/21 23:32 Anti-Inflamma Penicillins AdvReac Nausea Verified 04/29/21 18:08 sulfamethoxazole AdvReac Verified 04/28/21 23:32 [From Sulfamethoxazole-Trimethoprim] trimethoprim AdvReac Verified 04/28/21 23:32 [From Sulfamethoxazole-Trimethoprim] all steriods Allergy Uncoded 08/25/21 14:31 Review of Systems Review of Systems Narrative: All 12 point systems reviewed with the patient and are negative except otherwise documented. Exam Vital Signs (past 8 hours): - 08/25/21 14:02 08/25/21 14:17 08/25/21 14:30 Temperature 97.2 F L Pulse Rate 101 H 96 H 95 H Respiratory Rate 30 H 27 H 46 H Blood Pressure 145/99 H 167/95 H Pulse Oximetry 79 L 100 100 08/25/21 14:31 08/25/21 14:45 08/25/21 14:49 Temperature Pulse Rate 96 H 97 H 97 H Respiratory Rate 48 H 30 H 33 H Blood Pressure 211/94 H 217/99 H 210/95 H Pulse Oximetry 100 100 100 08/25/21 15:00 08/25/21 15:01 08/25/21 15:07 Temperature Pulse Rate 98 H 100 H 97 H Respiratory Rate 41 H 37 H Blood Pressure 222/100 H 222/100 H Pulse Oximetry 100 100 08/25/21 15:10 08/25/21 15:11 08/25/21 15:18 Temperature Pulse Rate 97 H 88 Respiratory Rate 28 H 17 Blood Pressure 211/78 H 211/78 H 169/78 H Pulse Oximetry 100 96 08/25/21 15:20 08/25/21 15:21 08/25/21 15:24 Temperature Pulse Rate 88 88 86 Respiratory Rate 16 19 16 Blood Pressure 158/74 H 152/72 H 137/61 Pulse Oximetry 94 93 93 08/25/21 15:29 08/25/21 15:30 08/25/21 15:38 Temperature Pulse Rate 82 72 69 Respiratory Rate 22 17 16 Blood Pressure 124/66 143/68 H 118/55 L Pulse Oximetry 94 94 94 08/25/21 15:39 08/25/21 15:42 08/25/21 15:50 Temperature Pulse Rate 88 85 81 Respiratory Rate 21 17 15 Blood Pressure 129/58 L 119/56 L 98/53 L Pulse Oximetry 93 95 93 08/25/21 15:54 08/25/21 16:00 08/25/21 16:02 Temperature Pulse Rate 84 74 75 Respiratory Rate 18 38 H 33 H Blood Pressure 114/57 L 164/73 H Pulse Oximetry 95 96 96 08/25/21 16:10 08/25/21 16:14 08/25/21 16:21 Temperature Pulse Rate 74 76 80 Respiratory Rate 25 H 50 H 49 H Blood Pressure 166/76 H 174/69 H 165/77 H Pulse Oximetry 99 100 95 08/25/21 16:30 08/25/21 16:41 08/25/21 16:50 Temperature Pulse Rate 87 82 79 Respiratory Rate 24 12 15 Blood Pressure 173/81 H 138/64 122/58 L Pulse Oximetry 97 96 95 08/25/21 17:00 08/25/21 17:10 08/25/21 17:20 Temperature Pulse Rate 77 64 79 Respiratory Rate 14 15 15 Blood Pressure 105/51 L 94/51 L 112/53 L Pulse Oximetry 95 95 96 08/25/21 17:30 08/25/21 17:40 08/25/21 17:49 Temperature Pulse Rate 78 80 80 Respiratory Rate 13 15 15 Blood Pressure 116/58 L 122/59 L Pulse Oximetry 96 96 97 08/25/21 17:50 08/25/21 18:00 08/25/21 18:10 Temperature Pulse Rate 64 78 78 Respiratory Rate 13 15 15 Blood Pressure 117/56 L 126/60 118/60 Pulse Oximetry 97 97 96 08/25/21 18:21 08/25/21 18:30 08/25/21 18:41 Temperature Pulse Rate 82 82 78 Respiratory Rate 31 H 23 26 H Blood Pressure 127/63 169/75 H 183/79 H Pulse Oximetry 95 98 99 08/25/21 18:50 08/25/21 19:00 08/25/21 19:10 Temperature Pulse Rate 78 75 76 Respiratory Rate 26 H 26 H 28 H Blood Pressure 187/84 H 176/81 H 196/77 H Pulse Oximetry 99 96 98 08/25/21 19:14 08/25/21 19:31 Temperature 98.4 F Pulse Rate 90 96 H Respiratory Rate 27 H 28 H Blood Pressure 176/81 H 169/77 H Pulse Oximetry 98 98 Fraction of Inspired Oxygen 25 Oxygen Delivery Method Nasal Cannula Oxygen Flow Rate 2 Narrative Exam Narrative: General: Patient is a delightful elderly female well-developed, moderately-nourished in mild distress at this time due to work of breathing. HEENT: Normocephalic, atraumatic, extraocular muscles intact, oral pharynx is clear and mucous membranes are moist. Neck is supple and symmetric, trachea is midline, no adenopathy, no thyroid enlargement, nontender, no masses palpated. Negative for JVD Chest: Normal AP diameter and contour without kyphoscoliosis, no nasal flaring, retractions, but positive tachypneic labored breathing. Lungs: Auscultation of all lung coates decreased breath sounds bilaterally auscultation, no wheezes, rales, crackles, chest moves symmetrically, positive for tachypnea.? 2 or 3 word sentences. Cardio: S1 & S2 with regular rate and rhythm without murmur, rubs, or gallops, no carotid bruit, no cardiac pulsations present. Abdomen: Soft nontender, negative for organomegaly, or masses. Bowel sounds are present in all 4 quadrants without guarding or rebound, no CVA tenderness. Musculoskeletal: Muscle strength and tone are equal within normal limits, no deformity, crepitus, effusions, cyanosis, clubbing or edema present. Full range of motion intact radial and pedal pulses are normal. Patient has no edema anywhere. Skin: Warm dry and intact without rashes, ulcerations or petechiae. Neuro: Alert and orientated x3, strength is +5/5 in all extremities, sensation to touch intact, no gross deficits noted of cranial nerves. Psych: Patient has a well-kept appearance, appropriate affect, mental status attitude thought context and judgment are appropriate for age. Objective Labs Result Diagrams: 08/25/21 14:09 08/25/21 14:09 Labs: Laboratory Results - last 24 hr 08/25/21 08/25/21 08/25/21 14:09 14:09 14:09 WBC 11.8 H RBC 4.13 Hgb 12.6 Hct 37.9 MCV 91.7 MCH 30.4 MCHC 33.2 RDW 14.5 Plt Count 233 Neut % (Auto) 85.9 H Lymph % (Auto) 5.5 L [place] % (Auto) 7.4 Eos % (Auto) 0.6 L Baso % (Auto) 0.6 Neut # (Auto) 58297 H Lymph # (Auto) 600 L [place] # (Auto) 900 Eos # (Auto) 100 Baso # (Auto) 100 D-Dimer 645 H ABG pH ABG pCO2 ABG pO2 ABG HCO3 ABG Total CO2 ABG O2 Saturation ABG Base Excess FiO2 Sodium 128 L Potassium 4.9 Chloride 89 L Carbon Dioxide 32 BUN 33 H Creatinine 0.67 Estimated GFR > 60.0 BUN/Creatinine Ratio 49.3 H Glucose 202 H Lactate Calcium 9.7 Ferritin 37 Total Bilirubin 0.9 AST 41 H ALT 41 H Alkaline Phosphatase 86 Lactate Dehydrogenase Total Creatine Kinase 66 CK-MB (CK-2) TNP CK-MB (CK-2) Rel Index TNP Troponin I 0.030 C-Reactive Protein < 0.5 NT-Pro-B Natriuret Pep Total Protein 8.6 H Albumin 4.7 Globulin 3.9 Albumin/Globulin Ratio 1.2 Procalcitonin 0.03 SARS-CoV-2 (PCR) 08/25/21 08/25/21 08/25/21 14:09 14:09 14:09 WBC RBC Hgb Hct MCV MCH MCHC RDW Plt Count Neut % (Auto) Lymph % (Auto) [place] % (Auto) Eos % (Auto) Baso % (Auto) Neut # (Auto) Lymph # (Auto) [place] # (Auto) Eos # (Auto) Baso # (Auto) D-Dimer ABG pH ABG pCO2 ABG pO2 ABG HCO3 ABG Total CO2 ABG O2 Saturation ABG Base Excess FiO2 Sodium Potassium Chloride Carbon Dioxide BUN Creatinine Estimated GFR BUN/Creatinine Ratio Glucose Lactate 1.1 Calcium Ferritin Total Bilirubin AST ALT Alkaline Phosphatase Lactate Dehydrogenase 609 Total Creatine Kinase CK-MB (CK-2) CK-MB (CK-2) Rel Index Troponin I C-Reactive Protein NT-Pro-B Natriuret Pep 3460 H Total Protein Albumin Globulin Albumin/Globulin Ratio Procalcitonin SARS-CoV-2 (PCR) Negative 08/25/21 08/25/21 14:09 14:25 WBC RBC Hgb Hct MCV MCH MCHC RDW Plt Count Neut % (Auto) Lymph % (Auto) [place] % (Auto) Eos % (Auto) Baso % (Auto) Neut # (Auto) Lymph # (Auto) [place] # (Auto) Eos # (Auto) Baso # (Auto) D-Dimer ABG pH 7.35 ABG pCO2 59.7 H ABG pO2 430 H* ABG HCO3 33 H ABG Total CO2 35 H ABG O2 Saturation 100 ABG Base Excess 7.0 H FiO2 100 Sodium Potassium Chloride Carbon Dioxide BUN Creatinine Estimated GFR BUN/Creatinine Ratio Glucose Lactate Calcium Ferritin Total Bilirubin AST ALT Alkaline Phosphatase Lactate Dehydrogenase Total Creatine Kinase CK-MB (CK-2) CK-MB (CK-2) Rel Index Troponin I C-Reactive Protein NT-Pro-B Natriuret Pep Total Protein Albumin Globulin Albumin/Globulin Ratio Procalcitonin SARS-CoV-2 (PCR) Negative Assessment & Plan Assessment & Plan narrative: Maame Sanchez is a delightful 81-year-old female who presents with concern for hypertension sent by her primary care physician but patient is acutely dyspneic.? She has a history of left bundle branch block, hypertension, dyslipidemia with valvular heart disease, paroxysmal atrial fibrillation and is on daily anticoagulation. Patient admitted for acute hypercapnic hypoxic respiratory failure due to hypertensive urgency and heart failure exacerbation. Patient will receive IV lasix diuresis to improve her acute respiratory failure and acute on chronic hyponatremia. Pt does not meet SIRS/Sepsis Crtieria at the time of admit. 1. Acute respiratory failure with hypercapnia and hypoxia, with pulmonary edema and bilateral pleural effusions, secondary to hypertensive urgency and CHF exacerbation with preserved ejection fraction, acute on chronic, in the setting of essential hypertension, left bundle-branch block, valvular heart disease, cardiomegaly, and paroxysmal atrial fibrillation, chronic, present on admission- stable in mild distress due to work of breathing. -patient may also have pulmonary HTN and has noted dilation of the ascending thoracic aorta (4.2cm) on imaging. -In addition patient had mild neutrophilic leukocytosis, and hyperglycemia. -initial BP 196/77, 183/79, HR 78, tachypneic RR 26-28, O2 saturation 99% on 3 L nasal cannula, but desatsto low 80's with activity. Patient continues to be significantly short of breath even with supplementary oxygen at this time. -In the ED patient had been using intermittent BiPAP as needed for symptom relief, her intial symptoms SOB & HTN urgency improved in ED with Lasix, Bipap, and Nitro paste. -ABGs pH 7.35, pCO2 59.7, PO2 430, HC03 33, TCO2 35, O2 sat 100%, BE 7.0, FiO2 100. Pt does not meet SIRS/Sepsis Crtieria, SOFA score at the time of admit:3 -WBC 11.8, neutrophils 10,100, chloride 89, BUN 33, glucose 2 O2, AST 41, ALT 44. -Dimer 645, CTA: No pulmonary embolism, interlobular septal thickening, mild cardiomegaly, mosaic ground-glass attenuation and pleural effusions, compatible with pulmonary edema. Enlargement of the right main pulmonary artery, suggesting pulmonary hypertension, and dilatation of the ascending thoracic aorta , measuring up to 4.2 cm. CXR demonstrated small to moderate left-sided pleural effusion with left lung atelectasis/infiltrates.? COPD.? No gross pneumothorax. -Inital lactate, LD, procalcitonin, and CRP were all normal. Initial troponin 0.030, BNP 3460, total protein 8.6. -Intial EKG Sinus rhythm left axis deviation left bundle-branch block.? Rate of 90 6p are 190 QRS of 148 QTC of 530.? Patient has a prior from 04/29/[address] segments except for V6 is inverted today.? -Last echo 05/19/2021 Dr. Alvarez:Mildly increased left ventricular thickness (concentric), with normal size, normal wall motion, and normal systolic function (EF 60-65%). 2) Normal right ventricular size and function. 3) Severe left atrial enlargement present. 4) There is mild aortic stenosis (valve area 1.5cm2, mean gradient 21mmHg). 5) There is moderate to severe aortic regurgitation. 6) Compared to the Echo done 01/18/2021, no significant change. -Tele ICU agricultural engineering teacher consult: Dr. Pfeiffer- did not feel pt required thoracentesis at this time and risks of pneumothorax secondary to BiPAP was negligible. -Lasix 40mg IV Q6hrs, Colbert to help alleviate increased oxygen demand and fatigue with activity, risk of falls,and accurate I&O. Fluid restriction 2000cc/per day -repeat BNP in am, trop, TSH, CBC, CMP, Mag, PT, PTT -Resp Consult: currently on 2L/N/C- BiPap PRN -Continue patient's amlodipine, Eliquis, Nadolol-Goal SBP >160 -[id number] ordered, Hx of UTI without s/s-WBC 11.8 neut [id number] U/A -Blood cultures pending 2. Chronic Hyponatremia, acute on chronic, secondary to CHF exacerbation, present on admission - sodium 128 patient suffers from chronic hyponatremia 129-130's -diuresis IV Lasix 40 mg q.6 hours -Urine sodium ordered -Monitor electrolytes 3. Hyperlipidemia, chronic, present on admission -continue patient's simvastatin Code status:DNR/DNI Surrogate decision maker: Edilia Batres -Friend/POA COVID PCR:Negative COVID vaccination: Known DVT/VTE prophylaxis:On Eliquis, SCd's only Disposition: Patient admitted to the ICU due to severity, complexity and acuity presenting acute respiratory failure secondary to hypertensive urgency and CHF exacerbation, expected length of stay greater than 2 midnights. I have utilized all available immediate resources to obtain, update, or review the patient's current medications. I confirmed that the patient's advanced care plan is present, Code status is documented and/or surrogate decision maker is listed in the patient's medical record. Time Spent With Patient Critical Care time: I spent a total of [] minutes of critical care time on this patient's care today; this time is exclusive of procedural time. Scores GCS Ra coma scale eye opening: Spontaneous [place] coma scale verbal response: Orientated [place] coma scale motor response: Obey commands Ra coma scale total score: 15 Wells' Criteria for PE Clinical signs and symptoms of DVT: No PE is #1 Dx or equally likely: No Heart rate > 100: No Immobilization at least 3 days or surg in previous 4 weeks: No History of PE or DVT: No Hemoptysis: No Malignancy w/Treatment within 6 months or palliative: No Wells' PE Score total: 0
[2021-08-25 20:16] LABS: Magnesium 2.4 mg/dL (1.6-2.3)
[2021-08-25 20:18] LABS: Hemoglobin A1C% w Est Avg Glu 5.4 % (4.0-6.0)
[2021-08-25] MEDS: AMLODIPINE 5 MG TABLET PO (20:35)
[2021-08-25] MEDS: APIXABAN 5 MG TABLET 2.5 MG PO (20:35)
[2021-08-25 20:50] LABS: Appearance Urine UA CLEAR; Bilirubin Urine UA NEGATIVE (NEGATIVE); Color Urine UA YELLOW; Glucose Urine UA NEGATIVE (Negative); Ketones Urine UA NEGATIVE (NEGATIVE); Leukocyte Esterase Urine UA NEGATIVE (NEGATIVE); Nitrite Urine UA NEGATIVE (Negative); Occult Blood Urine UA TRACE-INTACT (Negative); Protein Urine UA NEGATIVE (Negative); Specific Gravity Urine UA <=1.005 (1.000-1.035); Urobilinogen Urine UA 0.2 E.U./dL (0.2)
[2021-08-25 20:51] LABS: Bacteria Urine None Seen; Culture Indicated Urine Cult Not Indicated; Mucus Urine 1+ (Negative); RBC Urine 1-5/HPF (0-5/HPF); WBC Urine 1-5/HPF (0-5/HPF)
[2021-08-25 23:31] LABS: Sodium Urine Random 28 mmol/L (30-90)
[2021-08-26] VITALS (61 sets, daily range): BP systolic 114–161; BP diastolic 56–68; PULSE 62–91; RESP 14–39; TEMP 36.3–37.2; O2SAT 93–98
[2021-08-26] MEDS: FUROSEMIDE 40 MG/4 ML VIAL IV ×4 (02:43→20:19)
[2021-08-26 04:57] LABS: INR 1.2 (0.9-1.3); Prothrombin Time 13.6 SECONDS (10.1-12.7)
[2021-08-26 05:02] LABS: Add Manual Diff / Slide Review NO; Basophils Absolute Auto 100 /uL (0-100); Basophils Percent Auto 0.6 % (0-2); Eosinophils Absolute Auto 100 /uL (0-450); Eosinophils Percent Auto 0.9 % (2-4); Hemoglobin 11.7 g/dL (12.0-16.0); Lymphocytes Absolute Auto 800 /uL (1100-4500); Lymphocytes Percent Auto 9.9 % (25-40); Mean Corpuscular HGB Conc 33.6 % (30-36); Mean Corpuscular Hemoglobin 30.5 PG (26-34); Mean Corpuscular Volume 90.9 fL (80-100); Monocytes Absolute Auto 1100 /uL (0-900); Monocytes Percent Auto 13.1 % (3-14); Neutrophils Absolute Auto 6400 /uL (1500-7000); Neutrophils Percent Auto 75.5 % (50-75); Platelet Count 175 X10^3/uL (150-400); Red Blood Cell Count 3.85 X10^6/uL (4.0-5.2); Red Cell Distribution Width 13.5 % (11.6-14.8); White Blood Cell Count 8.5 X10^3/uL (4.5-11.0)
[2021-08-26 05:06] LABS: Alanine Aminotransferase 32 IU/L (<35); Albumin 3.9 g/dL (3.5-5.0); Albumin Globulin Ratio 1.1 (1.0-2.8); Alkaline Phosphatase 68 U/L (38-126); Aspartate Aminotransferase 32 IU/L (14-36); BUN Creatinine Ratio 36.4 (6-22); Bilirubin Total 0.8 mg/dL (0.2-1.3); Blood Urea Nitrogen 28 mg/dL (7-17); Calcium 9.5 mg/dL (8.4-10.2); Carbon Dioxide 34 mmol/L (22-32); Chloride 93 mmol/L (98-107); Estimated Glomerular Filt Rate > 60.0 mL/min (>60); Globulin 3.4 g/dL (1.7-4.1); Glucose 95 mg/dL (80-110); HEMOLYSIS < 15 (0-50); Potassium 3.7 mmol/L (3.4-5.1); Sodium 131 mmol/L (137-145); Total Protein 7.3 g/dL (6.3-8.2)
[2021-08-26 05:08] LABS: Magnesium 2.3 mg/dL (1.6-2.3)
[2021-08-26 05:18] LABS: NT-proBNP (BNP-Adult 18+) 5200 pg/mL (<450)
[2021-08-26 05:34] LABS: Thyroid Stimulating Hormone 1.28 uIU/mL (0.47-4.68)
[2021-08-26 05:50] LABS: Troponin I 0.186 ng/mL (0.01-0.034)
[2021-08-26 07:22] LABS: PTT Partial Thromboplastin Tim 30 SECONDS (26.4-36.2)
[2021-08-26] MEDS: ATORVASTATIN 20 MG TABLET 10 MG PO (08:36)
[2021-08-26] MEDS: AMLODIPINE 5 MG TABLET PO (08:36)
[2021-08-26 09:36] LABS: Add Manual Diff / Slide Review NO; Basophils Absolute Auto 100 /uL (0-100); Basophils Percent Auto 1.1 % (0-2); Eosinophils Absolute Auto 100 /uL (0-450); Eosinophils Percent Auto 0.6 % (2-4); Hematocrit 36.5 % (36-46); Hemoglobin 12.2 g/dL (12.0-16.0); Lymphocytes Absolute Auto 600 /uL (1100-4500); Lymphocytes Percent Auto 7.2 % (25-40); Mean Corpuscular HGB Conc 33.6 % (30-36); Mean Corpuscular Hemoglobin 30.4 PG (26-34); Mean Corpuscular Volume 90.5 fL (80-100); Monocytes Absolute Auto 1000 /uL (0-900); Monocytes Percent Auto 11.5 % (3-14); Neutrophils Absolute Auto 7000 /uL (1500-7000); Neutrophils Percent Auto 79.6 % (50-75); Platelet Count 197 X10^3/uL (150-400); Red Blood Cell Count 4.03 X10^6/uL (4.0-5.2); Red Cell Distribution Width 13.9 % (11.6-14.8); White Blood Cell Count 8.8 X10^3/uL (4.5-11.0)
[2021-08-26 09:50] LABS: INR 1.2 (0.9-1.3); Prothrombin Time 12.9 SECONDS (10.1-12.7)
[2021-08-26 09:53] LABS: PTT Partial Thromboplastin Tim 32 SECONDS (26.4-36.2)
[2021-08-26 10:25] LABS: Troponin I 0.143 ng/mL (0.01-0.034)
[2021-08-26] MEDS: APIXABAN 5 MG TABLET 2.5 MG PO ×2 (11:44→20:19)
--- NOTE | 2021-08-26 12:14 | CM.IDA ---
Initial DCP Assessment Note Pt is an 81 yo female, resident of [place], who presents with concern for hypertension sent by her primary care physician but patient is acutely dyspneic, admitted for Acute respiratory failure with hypercapnia and hypoxia, with pulmonary edema and bilateral pleural effusions, secondary to hypertensive urgency and CHF exacerbation with preserved ejection fraction, acute on chronic PCP: Pardeep Pizarro Payer: [facility] Reviewed chart, pt discussed in multidisciplinary rounds this morning. Per notes : diuresis IV Lasix 40 mg q.6 hours Met w/patient this morning, introduced role. Patient's breathing is a bit labored during this conversation, brief visit. Patient lives alone, no children. Patient has [employer] two times weekly for 4 hours and her friend Edilia visits and assists once a week for the entire day. Patient has numerous friends she relies on, states she was in the process of establishing her friend Edilia as DPOA (mtg scheduled w/traffic law attorney) and then she was admitted here. Patient requests Edilia be her primary contact. Patient expects to return home upon DC, states she can ask friends and [employer] for addtl. help. Patient states her biggest concern is securing a new cashier receptionist, states she could really use the help around her home ([employer] does light housework). Patient does not anticipate needing HH services but open to discussing again as needed. DC planning team will remain available in case DC needs or concerns arise. r/o need for HH upon DC. PT order when medically appropriate (?) ROD Samuel Discharge Planning/Care Management CM Discharge Assessment Start: 08/26/21 12:11 Freq: Status: Active Protocol: Document 08/26/21 12:12 SHAAN (Rec: 08/26/21 12:14 SHAAN [id number]) Discharge Planning Assessment Assigned [employer] Sales Manager ROD Pierre DPOA/Assigned Designee Name Edilia Pantojaalexajuan diego, friend and primary contact ([place]) Contact Information [phone] Advance Directives? Yes Advance Directives on File No History Provided By Patient,Medical Record Prior Living Arrangements House Household Members none Type of transporation used prior to Relies on Others admit Independent with ADL's Yes: Mostly Is patient alert and oriented? Yes Needs Assistance With Home Chores / Shopping Patient/Family Preference Home with Home Health Barriers to Discharge Yes Comment Fragile d/t resp status. Fatigues easily. Wants to return home w/friends and [employer] to assist as needed. Discharge Plan Home with Home Health Transportation Arrangement Friends Referrals Initiated Home Health Whiteboard Updated in Patient Room with Yes name and ext. # of [employer]ery And Del[employer] Sales Manager
[2021-08-26 12:42] LABS: PTT Partial Thromboplastin Tim 31 SECONDS (26.4-36.2)
--- NOTE | 2021-08-26 14:49 | CM.DPNOTE ---
DCP Note Requested by patient to return to room; she asks about cardiopulmonary rehab, here at vs HH services. This CORN BREEDER suggested HH upon DC, and suggested patient leave with the contact information for our cardiopulmonary rehab, patient agreeable and appreciative, has no HH agency preference. Referral faxed to [facility] per calendar rotation, start of care expected early next week. Patient may be medically ready for DC tomorrow JW
--- NOTE | 2021-08-26 15:09 | CM.DPNOTE ---
Faxed referral packet at [facility]'s request to [facility] and received fax conf. Margaret Hill CM Asst.
--- NOTE | 2021-08-26 16:37 | PM.PN.1 ---
Subjective Subjective Date Patient Seen: 08/26/21 Interval history: The patient is an 81-year-old female admitted to the hospital with acute respiratory failure.. Patient has been diuresed nicely, she is no longer on BiPAP, oxygenation has improved significantly and she is now on room air. She does complain of being somewhat short of breath but is markedly improved since admission Exam Vital Signs (past 8 hours): - 08/26/21 08:43 08/26/21 09:00 08/26/21 11:31 Temperature 97.8 F Pulse Rate 88 Respiratory Rate 22 Blood Pressure 148/64 H Pulse Oximetry 95 97 95 08/26/21 11:46 08/26/21 12:55 08/26/21 15:00 Temperature 97.6 F Pulse Rate 86 Respiratory Rate 24 Blood Pressure 114/56 L Pulse Oximetry 94 95 96 Fraction of Inspired Oxygen 25 Oxygen Delivery Method Room Air Oxygen Flow Rate 0 Narrative Exam Narrative: Pleasant female lying in bed hoarse voice but in no acute distress Resp Other: Lungs: Decreased breath sounds bilaterally Cardio Other: Cardiac exam: Regular rate and rhythm normal S1-S2 GI Other: Abdomen: Soft nontender nondistended Skin Other: Extremities: No edema Objective Labs Result Diagrams: 08/26/21 09:15 08/26/21 04:32 Labs: Laboratory Results - last 24 hr 08/25/21 08/25/21 08/25/21 14:07 14:07 14:25 WBC RBC Hgb Hct MCV MCH MCHC RDW Plt Count Neut % (Auto) Lymph % (Auto) [place] % (Auto) Eos % (Auto) Baso % (Auto) Neut # (Auto) Lymph # (Auto) [place] # (Auto) Eos # (Auto) Baso # (Auto) PT INR APTT ABG pH 7.35 ABG pCO2 59.7 H ABG pO2 430 H* ABG HCO3 33 H ABG Total CO2 35 H ABG O2 Saturation 100 ABG Base Excess 7.0 H FiO2 100 Sodium Potassium Chloride Carbon Dioxide BUN Creatinine Estimated GFR BUN/Creatinine Ratio Glucose Hemoglobin A1c 5.4 Calcium Magnesium 2.4 H Total Bilirubin AST ALT Alkaline Phosphatase Troponin I NT-Pro-B Natriuret Pep Total Protein Albumin Globulin Albumin/Globulin Ratio TSH Urine Color Urine Appearance Urine pH Ur Specific [place] Urine Protein Urine Glucose (UA) Urine Ketones Urine Occult Blood Urine Nitrate Urine Bilirubin Urine Urobilinogen Ur Leukocyte Esterase Urine RBC Urine WBC Urine Bacteria Urine Mucus Ur Culture Indicated? Ur Random Sodium Nasal Screen MRSA (PCR) 08/25/21 08/25/21 08/25/21 19:09 20:05 20:25 WBC RBC Hgb Hct MCV MCH MCHC RDW Plt Count Neut % (Auto) Lymph % (Auto) [place] % (Auto) Eos % (Auto) Baso % (Auto) Neut # (Auto) Lymph # (Auto) [place] # (Auto) Eos # (Auto) Baso # (Auto) PT INR APTT ABG pH ABG pCO2 ABG pO2 ABG HCO3 ABG Total CO2 ABG O2 Saturation ABG Base Excess FiO2 Sodium Potassium Chloride Carbon Dioxide BUN Creatinine Estimated GFR BUN/Creatinine Ratio Glucose Hemoglobin A1c Calcium Magnesium Total Bilirubin AST ALT Alkaline Phosphatase Troponin I NT-Pro-B Natriuret Pep Total Protein Albumin Globulin Albumin/Globulin Ratio TSH Urine Color Yellow Urine Appearance Clear Urine pH 5.0 Ur Specific [place] <=1.005 Urine Protein Negative Urine Glucose (UA) Negative Urine Ketones Negative Urine Occult Blood Trace-intact Urine Nitrate Negative Urine Bilirubin Negative Urine Urobilinogen 0.2 Ur Leukocyte Esterase Negative Urine RBC 1-5/hpf Urine WBC 1-5/hpf Urine Bacteria None seen Urine Mucus 1+ H Ur Culture Indicated? Cult not indicated Ur Random Sodium 28 L Nasal Screen MRSA (PCR) Negative for mrsa 08/26/21 08/26/21 08/26/21 04:32 04:32 04:32 WBC 8.5 RBC 3.85 L Hgb 11.7 L Hct 35.0 L MCV 90.9 MCH 30.5 MCHC 33.6 RDW 13.5 Plt Count 175 Neut % (Auto) 75.5 H Lymph % (Auto) 9.9 L [place] % (Auto) 13.1 Eos % (Auto) 0.9 L Baso % (Auto) 0.6 Neut # (Auto) 6400 Lymph # (Auto) 800 L [place] # (Auto) 1100 H Eos # (Auto) 100 Baso # (Auto) 100 PT 13.6 H INR 1.2 APTT ABG pH ABG pCO2 ABG pO2 ABG HCO3 ABG Total CO2 ABG O2 Saturation ABG Base Excess FiO2 Sodium Potassium Chloride Carbon Dioxide BUN Creatinine Estimated GFR BUN/Creatinine Ratio Glucose Hemoglobin A1c Calcium Magnesium 2.3 Total Bilirubin AST ALT Alkaline Phosphatase Troponin I NT-Pro-B Natriuret Pep Total Protein Albumin Globulin Albumin/Globulin Ratio TSH Urine Color Urine Appearance Urine pH Ur Specific [place] Urine Protein Urine Glucose (UA) Urine Ketones Urine Occult Blood Urine Nitrate Urine Bilirubin Urine Urobilinogen Ur Leukocyte Esterase Urine RBC Urine WBC Urine Bacteria Urine Mucus Ur Culture Indicated? Ur Random Sodium Nasal Screen MRSA (PCR) 08/26/21 08/26/21 08/26/21 04:32 04:32 06:40 WBC RBC Hgb Hct MCV MCH MCHC RDW Plt Count Neut % (Auto) Lymph % (Auto) [place] % (Auto) Eos % (Auto) Baso % (Auto) Neut # (Auto) Lymph # (Auto) [place] # (Auto) Eos # (Auto) Baso # (Auto) PT INR APTT 30 D ABG pH ABG pCO2 ABG pO2 ABG HCO3 ABG Total CO2 ABG O2 Saturation ABG Base Excess FiO2 Sodium 131 L Potassium 3.7 D Chloride 93 L Carbon Dioxide 34 H BUN 28 H Creatinine 0.77 Estimated GFR > 60.0 BUN/Creatinine Ratio 36.4 H Glucose 95 D Hemoglobin A1c Calcium 9.5 Magnesium Total Bilirubin 0.8 AST 32 ALT 32 Alkaline Phosphatase 68 Troponin I 0.186 H* NT-Pro-B Natriuret Pep 5200 H Total Protein 7.3 Albumin 3.9 Globulin 3.4 Albumin/Globulin Ratio 1.1 TSH 1.28 Urine Color Urine Appearance Urine pH Ur Specific [place] Urine Protein Urine Glucose (UA) Urine Ketones Urine Occult Blood Urine Nitrate Urine Bilirubin Urine Urobilinogen Ur Leukocyte Esterase Urine RBC Urine WBC Urine Bacteria Urine Mucus Ur Culture Indicated? Ur Random Sodium Nasal Screen MRSA (PCR) 08/26/21 08/26/21 08/26/21 09:15 09:15 09:15 WBC 8.8 RBC 4.03 Hgb 12.2 Hct 36.5 MCV 90.5 MCH 30.4 MCHC 33.6 RDW 13.9 Plt Count 197 Neut % (Auto) 79.6 H Lymph % (Auto) 7.2 L [place] % (Auto) 11.5 Eos % (Auto) 0.6 L Baso % (Auto) 1.1 Neut # (Auto) 7000 Lymph # (Auto) 600 L [place] # (Auto) 1000 H Eos # (Auto) 100 Baso # (Auto) 100 PT 12.9 H INR 1.2 APTT 32 ABG pH ABG pCO2 ABG pO2 ABG HCO3 ABG Total CO2 ABG O2 Saturation ABG Base Excess FiO2 Sodium Potassium Chloride Carbon Dioxide BUN Creatinine Estimated GFR BUN/Creatinine Ratio Glucose Hemoglobin A1c Calcium Magnesium Total Bilirubin AST ALT Alkaline Phosphatase Troponin I 0.143 H* NT-Pro-B Natriuret Pep Total Protein Albumin Globulin Albumin/Globulin Ratio TSH Urine Color Urine Appearance Urine pH Ur Specific [place] Urine Protein Urine Glucose (UA) Urine Ketones Urine Occult Blood Urine Nitrate Urine Bilirubin Urine Urobilinogen Ur Leukocyte Esterase Urine RBC Urine WBC Urine Bacteria Urine Mucus Ur Culture Indicated? Ur Random Sodium Nasal Screen MRSA (PCR) 08/26/21 12:24 WBC RBC Hgb Hct MCV MCH MCHC RDW Plt Count Neut % (Auto) Lymph % (Auto) [place] % (Auto) Eos % (Auto) Baso % (Auto) Neut # (Auto) Lymph # (Auto) [place] # (Auto) Eos # (Auto) Baso # (Auto) PT INR APTT 31 ABG pH ABG pCO2 ABG pO2 ABG HCO3 ABG Total CO2 ABG O2 Saturation ABG Base Excess FiO2 Sodium Potassium Chloride Carbon Dioxide BUN Creatinine Estimated GFR BUN/Creatinine Ratio Glucose Hemoglobin A1c Calcium Magnesium Total Bilirubin AST ALT Alkaline Phosphatase Troponin I NT-Pro-B Natriuret Pep Total Protein Albumin Globulin Albumin/Globulin Ratio TSH Urine Color Urine Appearance Urine pH Ur Specific [place] Urine Protein Urine Glucose (UA) Urine Ketones Urine Occult Blood Urine Nitrate Urine Bilirubin Urine Urobilinogen Ur Leukocyte Esterase Urine RBC Urine WBC Urine Bacteria Urine Mucus Ur Culture Indicated? Ur Random Sodium Nasal Screen MRSA (PCR) [facility] Medical History (Updated 08/25/21 @ 20:42 by KAUSHIK Guerin) Chronic hyponatremia Essential (primary) hypertension Heart failure with preserved ejection fraction Hypertension Insomnia Paroxysmal atrial fibrillation Sleep apnea Valvular heart disease Surgical History (Updated 08/25/21 @ 20:40 by KAUSHIK Guerin) History of lung surgery Family History Mother Congestive heart failure Father Patient killed Social History household members: none lives independently: Yes Smoking Status: Never smoker alcohol intake: never Assessment & Plan Assessment & Plan narrative: Impression 1. Acute hypoxic respiratory failure -secondary to flash pulmonary edema -likely exacerbated by hypertensive urgency -acute congestive heart failure, preserved ejection fraction, likely secondary to diastolic dysfunction -echo reveals moderate to severe aortic regurgitation -patient is diuresing nicely, on Lasix IV Q 6, will continue -agree with Cardiology consultation, likely will need to be obtained as an outpatient at discharge 2. Paroxysmal Atrial Fibrillation -continue apixaban -ratle controlled Hyponatremia -serum sodium 131 -likely related to volume overload -will recheck labs and follow closely 3. Hyperlipidemia -continue statin .4. Hypertensive urgency -blood pressure improved on IV lasix -need to ensure better outpatient control -on nadolol and amlodipine would suggest metoprolol instead patient is DNR/DNI and is noted in her record Time Spent With Patient Critical Care time: I spent a total of [] minutes of critical care time on this patient's care today; this time is exclusive of procedural time.
[2021-08-26 17:33] LABS: PTT Partial Thromboplastin Tim 25 SECONDS (26.4-36.2)
[2021-08-26 17:47] LABS: NT-proBNP (BNP-Adult 18+) 2030 pg/mL (<450)
[2021-08-26] MEDS: METOPROLOL ER 25 MG TABLET PO (20:19)
[2021-08-27] VITALS (53 sets, daily range): BP systolic 109–139; BP diastolic 52–63; PULSE 63–95; RESP 13–45; TEMP 36.4–36.9; O2SAT 91–98
[2021-08-27] MEDS: FUROSEMIDE 40 MG/4 ML VIAL IV ×4 (01:45→20:37)
[2021-08-27] MEDS: METOPROLOL ER 25 MG TABLET PO ×2 (08:51→20:38)
[2021-08-27] MEDS: ATORVASTATIN 20 MG TABLET 10 MG PO (08:53)
[2021-08-27] MEDS: AMLODIPINE 5 MG TABLET PO (08:54)
[2021-08-27] MEDS: APIXABAN 5 MG TABLET 2.5 MG PO ×2 (08:54→20:37)
[2021-08-27 09:31] LABS: Add Manual Diff / Slide Review NO; Basophils Absolute Auto 100 /uL (0-100); Basophils Percent Auto 0.8 % (0-2); Eosinophils Absolute Auto 200 /uL (0-450); Eosinophils Percent Auto 2.1 % (2-4); Hematocrit 36.7 % (36-46); Hemoglobin 12.4 g/dL (12.0-16.0); Lymphocytes Absolute Auto 700 /uL (1100-4500); Lymphocytes Percent Auto 8.1 % (25-40); Mean Corpuscular HGB Conc 33.7 % (30-36); Mean Corpuscular Hemoglobin 30.7 PG (26-34); Mean Corpuscular Volume 90.9 fL (80-100); Monocytes Absolute Auto 1100 /uL (0-900); Neutrophils Absolute Auto 6600 /uL (1500-7000); PTT Partial Thromboplastin Tim 33 SECONDS (26.4-36.2); Platelet Count 188 X10^3/uL (150-400); Red Blood Cell Count 4.04 X10^6/uL (4.0-5.2); White Blood Cell Count 8.7 X10^3/uL (4.5-11.0)
[2021-08-27 09:36] LABS: Alanine Aminotransferase 30 IU/L (<35); Albumin 4.1 g/dL (3.5-5.0); Albumin Globulin Ratio 1.3 (1.0-2.8); Alkaline Phosphatase 70 U/L (38-126); Aspartate Aminotransferase 33 IU/L (14-36); BUN Creatinine Ratio 43.7 (6-22); Bilirubin Total 0.9 mg/dL (0.2-1.3); Blood Urea Nitrogen 38 mg/dL (7-17); Calcium 9.6 mg/dL (8.4-10.2); Carbon Dioxide 35 mmol/L (22-32); Chloride 89 mmol/L (98-107); Estimated Glomerular Filt Rate > 60.0 mL/min (>60); Globulin 3.2 g/dL (1.7-4.1); Glucose 101 mg/dL (80-110); HEMOLYSIS < 15 (0-50); Magnesium 2.2 mg/dL (1.6-2.3); Potassium 4.1 mmol/L (3.4-5.1); Sodium 131 mmol/L (137-145); Total Protein 7.3 g/dL (6.3-8.2)
--- NOTE | 2021-08-27 12:07 | PT.IIE ---
Current Diagnoses Acute on chronic diastolic (congestive) heart failure (08/25/21) Medical History (Last Updated 08/25/21 @ 20:42 [facility] Chronic hyponatremia Essential (primary) hypertension Heart failure with preserved ejection fraction Hypertension Insomnia Paroxysmal atrial fibrillation Sleep apnea Valvular heart disease Physical Therapy Inpatient Evaluation/Re-Eval M1 PT/OT-IP Prior Functional Status Start: 08/27/21 13:16 Freq: NEEDED Status: Active Protocol: Document 08/27/21 12:07 AB (Rec: 08/27/21 15:40 AB [email or web address]) Medical Review Prior Functional Status Medical History Reviewed Yes Communication able to make needs known Mobility and Gait pt stated that she is independent with all mobilities and ambulation without AD indoors but uses a 4WW for outdoor mobility Social History Household Members none Living Arrangements Apartment/Condo Number of Floors (Floors) One Floor Number of Stairs To Enter/Railing? elevator go get to her condo: 1 level Home Environment Standard Height Toilet,Walk in Shower,Elevator Home Equipment Four Wheel Walker,Shower Seat without Backrest,Hand Held Shower,Grab Bars Near Toilet, Grab Bars In Shower Additional Social History Comment pt stated that she has Vis[facility] 2x/week for ~ 4 hours each time and has a friend who comes in to assist her ~ 8 hours once a week M2 PT-IP Current Condition Start: 08/27/21 13:16 Freq: NEEDED Status: Active Protocol: Document 08/27/21 12:07 AB (Rec: 08/27/21 15:40 AB [email or web address]) Physical Therapy Current Condition Current Condition Evaluation Date 08/27/21 Treatment Diagnosis CHF; Afib; difficulty in walking Onset Date 08/25/21 M3 PT-IP Subjective Start: 08/27/21 13:16 Freq: NEEDED Status: Active Protocol: Document 08/27/21 12:07 AB (Rec: 08/27/21 15:40 AB [email or web address]) Subjective Physical Therapy Visit Type Type Initial Evaluation Visit Start Time 12:07 Visit Stop Time 14:41 Total Visit Minutes 51 Notes pt seen for split visits: 1207 to 1217 and 1400 to 1441 Number of [employer] Visits 0 Physical Therapy Visit Comments Patient Comments check on pt before lunch but requested to have PT in the afternoon but obtained PLOF and home set up; checked back on pt in the afternoon and agreed to do PT M4 PT-IP Mobility and Gait Start: 08/27/21 13:16 Freq: NEEDED Status: Active Protocol: Document 08/27/21 12:07 AB (Rec: 08/27/21 15:40 AB [email or web address]) PT-Bed Mobility Assessment Supine to Sit Supine to Sit Standby Assistance Sit to Supine Sit to Supine Standby Assistance PT-Transfer Assessment Sit to and From Stand Sit to and from Stand Contact Guard Assistance,1 Person Assistance,Use of Upper Extremities Equipment Transfer Assistive Device Gait Belt,Front Wheeled Walker Orthotic/Prosthetic Devices or Brace: No Transfers Transfer Destination Bed,Chair Transfer Technique ambulated Transfer Ability Level of Assist Contact Guard Assistance,1 Person Assistance,Use of Upper Extremities Comments Mobility Comments Checked on pt before lunch and stated that she will do PT in the afternoon. stated that she is just tired for now and wants to rest. Checked back on pt and pt sitting on chair and agreed to do PT. completed sit to stand CGA and ambulated in room using FWW 30 ft CGA to min A with posterior LOB requiring min A for recovery. pt ambulated to the bed. completed sit<>supine SBA. completed sit to stand from EOB CGA and step transfer to chair using FWW CGA. positioned pt on chair. call light and table placed within reach. o2 sat 95% [place]: 77-89 bpm Gait Assessment Gait Gait Assistance Required: Contact Guard Assist,Minimum Assistance Distance (Feet) 30 Able to Maintain Weight Bearing Status Yes During Gait Assistive Devices Assistive Device Gait Belt,Front Wheeled Walker Orthotic/Prosthetic Devices or Brace: No Gait Deviations General Gait Pattern Antalgic,Decreased Stride Length,Decreased Feet Clearance Factors Limiting Gait Function Factors Limiting Gait Function Decreased Activity Tolerance, Decreased Strength,Poor Balance,Poor Safety Awareness PT-Balance Assessment Sitting Balance and Reactions Static Sitting Balance Ability Good Dynamic Sitting Balance Ability Good Standing Balance and Reactions Static Standing Balance Ability Fair Dynamic Standing Balance Ability Fair Device Used FWW M5 PT-IP Objective Assessments Start: 08/27/21 13:16 Freq: NEEDED Status: Active Protocol: Document 08/27/21 12:07 AB (Rec: 08/27/21 15:40 AB [id number]) Orientation Orientation/Cognition Level of Alertness Alert Orientation Name,Place,Situation Language Function Ability Hard of Hearing Safety Awareness Decreased Safety Awareness Memory Description No Deficits Noted Gross Range of Motion Lower Extremity ROM Assessment Within Functional Limits Strength Lower Extremity Strength Hip 4-/5 Knee 4-/5 Muscle Tone Muscle Tone WNL Yes M6 PT-IP Treatment Start: 08/27/21 13:16 Freq: NEEDED Status: Active Protocol: Document 08/27/21 12:07 AB (Rec: 08/27/21 15:40 AB [email or web address]) Physical Therapy Treatment Education Education Provided Safety M7 PT-IP Assessment and Plan Start: 08/27/21 13:16 Freq: NEEDED Status: Active Protocol: Document 08/27/21 12:07 AB (Rec: 08/27/21 15:40 AB [email or web address]) PT Summary Assessment and Plan Potential Rehabilitation Potential Fair Status of Condition at Evaluation Stable Summary Impairments Pain,Strength,Balance, Cognition,Bed Mobility, Transfers,Gait,Activity Tolerance Assessment Summary pt requiring CGA to min A with mobility and has decrease activity tolerance affecting independence. informed pt regarding safety and d/c plan and stated that she has friends that can alternately stay with her to assist for a few days upon d/c. will continue to assess progress. Pt will benefit from HHPT. Goals Bed Mobility Goal Independent Transfer Goal Independent,Four Wheeled Walker Gait Goal Independent,Four Wheel Walker Gait Distance 250 Days to Meet Goals 5 Frequency of Treatment Frequency Of Treatment Once a Day Treatment Plan Physical Therapy Treatment Plan Bed Mobility Training,Transfer Training,Gait Training, Therapeutic Exercise,Balance Retraining,Discharge Planning, Neuromuscular Re-ed, Coordination Retraining Other Recommendations and Next Treatment ambulation using 4WW Focus Recommendations To Nursing Amount of Assist Needed 1 Person Assist Discharge Recommendations PT Discharge Recommendations Home with Assistance,Home Health Transportation Needs at Discharge Private Vehicle
--- NOTE | 2021-08-27 14:37 | PC.NURSE ---
Am shift Pt is denying SOB at rest, RA 97% dim with fine crackles to bases, improved throughout shift. 1PA FWW to BR. Fatigues easily PT eval for today. Pt requesting this happen later after ambulating in room this AM. WOB increased after activity. Enc taking time to rest. Spo2 90% during ambulation. Lasix IV and good urine output. Pt declines to have clayton removed until after PT. Up to chair with 1PA, continues to tire quickly. Pt plans to work on dc home in am.
--- NOTE | 2021-08-27 18:44 | P.PN_ITS ---
Subjective Subjective Date Patient Seen: 08/27/21 Time Patient Seen: 08:30 Interval history: The patient is an 81-year-old female admitted to the hospital with acute respiratory failure..? Patient has been diuresed nicely, she is no longer on BiPAP, oxygenation has improved significantly and she is now on room air.? She does complain of being somewhat short of breath but is markedly improved since admission. She was requiring significant assistance per nursing, ordered for PT evaluation today. Still feel short of breath and quite weak. Exam Vital Signs (past 8 hours): - 08/27/21 10:45 08/27/21 11:00 08/27/21 11:30 Temperature Pulse Rate 90 73 70 Respiratory Rate 22 13 Blood Pressure Pulse Oximetry 95 96 08/27/21 12:00 08/27/21 12:30 08/27/21 12:35 Temperature Pulse Rate 84 85 88 Respiratory Rate 20 20 29 H Blood Pressure 126/63 Pulse Oximetry 94 96 96 08/27/21 12:42 08/27/21 13:00 08/27/21 13:30 Temperature 97.7 F Pulse Rate 91 H 95 H 90 Respiratory Rate 25 H 33 H 25 H Blood Pressure 126/63 Pulse Oximetry 96 96 97 08/27/21 14:00 08/27/21 14:19 08/27/21 14:20 Temperature Pulse Rate 87 86 88 Respiratory Rate 21 26 H 24 Blood Pressure 109/52 L 117/55 L Pulse Oximetry 95 95 96 08/27/21 14:30 08/27/21 15:00 08/27/21 15:30 Temperature Pulse Rate 87 82 86 Respiratory Rate 34 H 23 18 Blood Pressure Pulse Oximetry 96 95 08/27/21 15:40 08/27/21 15:43 08/27/21 16:00 Temperature 98.3 F Pulse Rate 76 75 74 Respiratory Rate 17 32 H 23 Blood Pressure 128/62 128/62 Pulse Oximetry 95 96 97 08/27/21 17:10 Temperature Pulse Rate Respiratory Rate Blood Pressure Pulse Oximetry 93 Fraction of Inspired Oxygen 25 Oxygen Delivery Method Room Air Oxygen Flow Rate 0 Narrative Exam Narrative: Pleasant female lying in bed in no acute distress. Resp Other:?Lungs: Decreased breath sounds bilaterally, LLL crackles, Right CTA Cardio Other:?Cardiac exam: Regular rate and rhythm normal S1-S2 GI Other:?Abdomen:? Soft nontender nondistended Skin Other:?Extremities: trace pre-tibial edema bilaterally, R slightly greater than L. Objective Labs Result Diagrams: 08/27/21 08:55 08/27/21 08:55 Labs: Laboratory Results - last 24 hr 08/27/21 08/27/21 08/27/21 08:55 08:55 08:55 WBC 8.7 RBC 4.04 Hgb 12.4 Hct 36.7 MCV 90.9 MCH 30.7 MCHC 33.7 RDW 14.0 Plt Count 188 Neut % (Auto) 76.0 H Lymph % (Auto) 8.1 L [place] % (Auto) 13.0 Eos % (Auto) 2.1 Baso % (Auto) 0.8 Neut # (Auto) 6600 Lymph # (Auto) 700 L [place] # (Auto) 1100 H Eos # (Auto) 200 Baso # (Auto) 100 APTT Sodium 131 L Potassium 4.1 Chloride 89 L Carbon Dioxide 35 H BUN 38 H Creatinine 0.87 Estimated GFR > 60.0 BUN/Creatinine Ratio 43.7 H Glucose 101 Calcium 9.6 Magnesium 2.2 Total Bilirubin 0.9 AST 33 ALT 30 Alkaline Phosphatase 70 Total Protein 7.3 Albumin 4.1 Globulin 3.2 Albumin/Globulin Ratio 1.3 08/27/21 08:55 WBC RBC Hgb Hct MCV MCH MCHC RDW Plt Count Neut % (Auto) Lymph % (Auto) [place] % (Auto) Eos % (Auto) Baso % (Auto) Neut # (Auto) Lymph # (Auto) [place] # (Auto) Eos # (Auto) Baso # (Auto) APTT 33 D Sodium Potassium Chloride Carbon Dioxide BUN Creatinine Estimated GFR BUN/Creatinine Ratio Glucose Calcium Magnesium Total Bilirubin AST ALT Alkaline Phosphatase Total Protein Albumin Globulin Albumin/Globulin Ratio [facility] Medical History (Updated 08/25/21 @ 20:42 by KAUSHIK Guerin) Chronic hyponatremia Essential (primary) hypertension Heart failure with preserved ejection fraction Hypertension Insomnia Paroxysmal atrial fibrillation Sleep apnea Valvular heart disease Surgical History (Updated 08/25/21 @ 20:40 by KAUSHIK Guerin) History of lung surgery Family History Mother Congestive heart failure Father Patient killed Social History household members: none lives independently: Yes Smoking Status: Never smoker alcohol intake: never Assessment & Plan Assessment & Plan narrative: 1. Acute hypoxic respiratory failure, resolved -secondary to flash pulmonary edema -likely exacerbated by hypertensive urgency -acute congestive heart failure, preserved ejection fraction, likely secondary to diastolic dysfunction -patient is diuresing nicely, on Lasix IV, will continue -recommend outpatient cardiology follow up 2. acute diastolic heart failure with preserved ejection fraction -echo reveals moderate to severe aortic regurgitation, normal EF. - continue diuresis 3. Paroxysmal Atrial Fibrillation -continue apixaban -rate controlled 4. Hyponatremia -serum sodium 131, stable. -likely related to volume overload -will follow 5. Hyperlipidemia -continue statin 6. Hypertensive urgency -blood pressure improved on IV lasix -need to ensure better outpatient control -will need outpatient adjustment. patient is DNR/DNI and is noted in her record Time Spent With Patient Critical Care time: I spent a total of [] minutes of critical care time on this patient's care today; this time is exclusive of procedural time.
[2021-08-28] VITALS (26 sets, daily range): BP systolic 109–152; BP diastolic 57–67; PULSE 59–96; RESP 10–34; TEMP 36.3–37.2; O2SAT 86–98
[2021-08-28] MEDS: FUROSEMIDE 40 MG/4 ML VIAL IV ×2 (01:52→08:06)
[2021-08-28 05:18] LABS: Add Manual Diff / Slide Review NO; Basophils Absolute Auto 100 /uL (0-100); Eosinophils Absolute Auto 300 /uL (0-450); Eosinophils Percent Auto 4.1 % (2-4); Hematocrit 36.9 % (36-46); Hemoglobin 12.2 g/dL (12.0-16.0); Lymphocytes Absolute Auto 700 /uL (1100-4500); Lymphocytes Percent Auto 9.1 % (25-40); Mean Corpuscular Hemoglobin 30.2 PG (26-34); Mean Corpuscular Volume 91.7 fL (80-100); Monocytes Absolute Auto 1300 /uL (0-900); Monocytes Percent Auto 15.9 % (3-14); Neutrophils Absolute Auto 5700 /uL (1500-7000); Neutrophils Percent Auto 69.9 % (50-75); Platelet Count 182 X10^3/uL (150-400); Red Blood Cell Count 4.03 X10^6/uL (4.0-5.2); Red Cell Distribution Width 13.9 % (11.6-14.8); White Blood Cell Count 8.2 X10^3/uL (4.5-11.0)
[2021-08-28 05:22] LABS: PTT Partial Thromboplastin Tim 31 SECONDS (26.4-36.2)
[2021-08-28 05:26] LABS: Alanine Aminotransferase 27 IU/L (<35); Albumin Globulin Ratio 1.2 (1.0-2.8); Alkaline Phosphatase 63 U/L (38-126); Aspartate Aminotransferase 29 IU/L (14-36); BUN Creatinine Ratio 42.6 (6-22); Bilirubin Total 0.6 mg/dL (0.2-1.3); Blood Urea Nitrogen 49 mg/dL (7-17); Calcium 9.4 mg/dL (8.4-10.2); Carbon Dioxide 36 mmol/L (22-32); Chloride 89 mmol/L (98-107); Estimated Glomerular Filt Rate 45.2 mL/min (>60); Globulin 3.3 g/dL (1.7-4.1); Glucose 158 mg/dL (80-110); HEMOLYSIS < 15 (0-50); Magnesium 2.2 mg/dL (1.6-2.3); Potassium 3.9 mmol/L (3.4-5.1); Sodium 131 mmol/L (137-145); Total Protein 7.3 g/dL (6.3-8.2)
[2021-08-28] MEDS: AMLODIPINE 5 MG TABLET PO (08:07)
[2021-08-28] MEDS: METOPROLOL ER 25 MG TABLET PO ×2 (08:07→20:59)
[2021-08-28] MEDS: ATORVASTATIN 20 MG TABLET 10 MG PO (08:07)
[2021-08-28] MEDS: APIXABAN 5 MG TABLET 2.5 MG PO ×2 (08:07→20:58)
--- NOTE | 2021-08-28 10:53 | PM.DS.1 ---
History of Present Illness History of Present Illness Chief complaint: High BP- wants her seen Narrative: Maame Sanchez is a delightful 81-year-old female who presents with concern for hypertension sent by her primary care physician but patient is acutely dyspneic.? She has a history of left bundle branch block, hypertension, dyslipidemia with valvular heart disease, paroxysmal atrial fibrillation and is on daily anticoagulation.? Patient is quite hard of hearing and very short of breath and so it is difficult to have a true HPI performed.?Patient is unable to complete full sentences without significant SOB.? Patient states that she had previously been on Lasix and spironolactone but that these medications had been stopped back in May by her PCP Dr. Pizarro.? The patient notes that she began having increasing shortness of breath and fatigue approximately 2 weeks ago and has only continued to worsen.? She denies swelling of her extremities, Chest pain. pressure, numbness tingling, weakness, abdominal pain, nausea, vomiting, diarrhea, chills, urinary symptoms, falls, recent injury illness or trauma.? Patient denies any recent changes to her medications. Initial vitals upon admit temp 97.2?, BP 183/79, HR 78, tachypneic RR 26, O2 saturation 99% on 3 L nasal cannula.? Patient continues to be significantly short of breath even with supplementary oxygen at this time.? In the ED patient had been using intermittent BiPAP as needed for symptom relief, her intial symptoms SOB & HTN urgency improved in ED with Lasix, Bipap, and Nitro paste. ? Initial ABGs pH 7.35, pCO2 59.7, PO2 430, HC03 33, TCO2 35, O2 sat 100%, BE 7.0, FiO2 100.? Patient has elevated WBC 11.8, with a left shift neutrophils 10,100, sodium 128 patient suffers from chronic hyponatremia 129-130's, chloride 89, BUN 33, glucose 2 O2, AST 41, ALT 44.? Patient had an elevated dimer 645, CTA was performed was negative for PE was positive for pulmonary edema, pleural effusions and possible pulmonary hypertension. Patient CXR demonstrated small to moderate left-sided pleural effusion with left lung atelectasis/infiltrates.? COPD.? No gross pneumothorax. Patient's lactate, LD, procalcitonin, and CRP were all normal.? Patient's initial troponin 0.030, BNP 3460, total protein 8.6. Intial EKG Sinus rhythm left axis deviation left bundle-branch block.? Rate of 90 6p are 190 QRS of 148 QTC of 530.? Patient has a prior from 04/29/[address] except for V6 is inverted today.? Patient admitted for acute hypercapnic hypoxic respiratory failure due to hypertensive urgency and heart failure exacerbation. Discharge Providers Provider Date of admission: 08/25/21 16:14 Discharge Date: 08/28/21 Primary care physician: Pardeep Pizarro MD Consults: 08/25/21 19:33 Consult to Respiratory Therapy Evaluate & Treat Comment: Acute Resp Failure/HF-PRN Physician Instructions: Evaluate and treat 08/25/21 20:16 Consult to Tele-restaurant operations manager Routine Comment: Consulting Provider: Di Tele-intensivists Reason for consultation: Manager Camp services Has provider been notified: Yes 08/26/21 14:43 Consult to Home Health Routine Comment: Reason For Exam: Home Health upon DC 08/27/21 08:35 Consult to Physical Therapy Evaluate & Treat Comment: Physician Instructions: Evaluate and Treat Discharge provider: Momo Salinas, Exam Vital Signs (past 8 hours): - 08/28/21 05:00 08/28/21 08:15 08/28/21 08:25 Temperature 97.3 F L 98.2 F Pulse Rate 88 86 Respiratory Rate 20 18 Blood Pressure 120/57 L 145/66 H Pulse Oximetry 96 98 98 08/28/21 08:39 Temperature Pulse Rate Respiratory Rate Blood Pressure Pulse Oximetry 98 Fraction of Inspired Oxygen 25 Oxygen Delivery Method Room Air Oxygen Flow Rate 0 Objective Labs Result Diagrams: 08/28/21 04:44 08/28/21 04:44 Labs: Laboratory Results - last 24 hr 08/28/21 08/28/21 08/28/21 04:44 04:44 04:44 WBC 8.2 RBC 4.03 Hgb 12.2 Hct 36.9 MCV 91.7 MCH 30.2 MCHC 33.0 RDW 13.9 Plt Count 182 Neut % (Auto) 69.9 Lymph % (Auto) 9.1 L [place] % (Auto) 15.9 H Eos % (Auto) 4.1 H Baso % (Auto) 1.0 Neut # (Auto) 5700 Lymph # (Auto) 700 L [place] # (Auto) 1300 H Eos # (Auto) 300 Baso # (Auto) 100 APTT Sodium 131 L Potassium 3.9 Chloride 89 L Carbon Dioxide 36 H BUN 49 H Creatinine 1.15 H Estimated GFR 45.2 L BUN/Creatinine Ratio 42.6 H Glucose 158 H Calcium 9.4 Magnesium 2.2 Total Bilirubin 0.6 AST 29 ALT 27 Alkaline Phosphatase 63 Total Protein 7.3 Albumin 4.0 Globulin 3.3 Albumin/Globulin Ratio 1.2 08/28/21 04:44 WBC RBC Hgb Hct MCV MCH MCHC RDW Plt Count Neut % (Auto) Lymph % (Auto) [place] % (Auto) Eos % (Auto) Baso % (Auto) Neut # (Auto) Lymph # (Auto) [place] # (Auto) Eos # (Auto) Baso # (Auto) APTT 31 Sodium Potassium Chloride Carbon Dioxide BUN Creatinine Estimated GFR BUN/Creatinine Ratio Glucose Calcium Magnesium Total Bilirubin AST ALT Alkaline Phosphatase Total Protein Albumin Globulin Albumin/Globulin Ratio [facility] Medical History (Updated 08/25/21 @ 20:42 by KAUSHIK Guerin) Chronic hyponatremia Essential (primary) hypertension Heart failure with preserved ejection fraction Hypertension Insomnia Paroxysmal atrial fibrillation Sleep apnea Valvular heart disease Surgical History (Updated 08/25/21 @ 20:40 by KAUSHIK Guerin) History of lung surgery Family History Mother Congestive heart failure Father Patient killed Social History household members: none lives independently: Yes Smoking Status: Never smoker alcohol intake: never Discharge Plan Discharge Plan Patient Disposition: Home Health Service Provider Discharge Comment: You were admitted to the hospital with shortness of breath due to a combination of heart failure and atrial fibrillation. You improved with fluid removal. Discharged home with home health. Please follow up with your PCP next week ideally to continue adjustments with your medications. Discharge orders & Medications Prescriptions: New furosemide 40 mg tablet 40 mg PO BID 30 Days Qty: 60 RF: 0 Continued apixaban 2.5 mg tablet 2.5 mg PO BID RF: 0 simvastatin 5 mg tablet 5 mg PO DAILY RF: 0 amlodipine [Norvasc] 5 mg Tablet 5 mg PO DAILY Qty: 30 RF: 0 nadolol 40 mg tablet 40 mg PO BEDTIME RF: 0 Follow up/Referrals: Pardeep Pizarro MD [Primary Care Provider] - Diet/Activity/Treatments Diet: Diet as Tolerated and Low-sodium Activity: As tolerated, no restrictions Discharge Data Primary Care Provider: Pardeep Pizarro V
--- NOTE | 2021-08-28 11:33 | PT.IPTN ---
Addendum entered and electronically signed by Jada Crow, CIRCULATION ASSISTANT 08/28/21 14:43: Extensive time 45 min assist care mgt, with pt and her POA on safety recommending SNF for strengthening, balance skilled therapy for safe return home, pt doesn't have / assist available, pt agreeable to SNF. Original Note: Current Diagnoses Acute on chronic diastolic (congestive) heart failure (08/25/21) Physical Therapy Treatment Note M2 PT-IP Current Condition Start: 08/27/21 13:16 Freq: NEEDED Status: Active Protocol: Document 08/28/21 10:48 SP (Rec: 08/28/21 13:59 SP [id number]) Physical Therapy Current Condition Current Condition Evaluation Date 08/27/21 Treatment Diagnosis CHF; Afib; difficulty in walking Onset Date 08/25/21 M3 PT-IP Subjective Start: 08/27/21 13:16 Freq: NEEDED Status: Active Protocol: Document 08/28/21 10:48 SP (Rec: 08/28/21 13:59 SP [id number]) Subjective Physical Therapy Visit Type Type Treatment Note Visit Start Time 10:48 Visit Stop Time 11:33 Total Visit Minutes 45 Notes Vital taken during tx: -seated right after shower with BELLING MACHINE OPERATOR:BP 125/61 HR 82 SaO2 mid 90s. -SOB during standing mobility mask donned. SaO2 low- mid 90s throughout tx. Number of CIRCULATION ASSISTANT Visits 1 Physical Therapy Visit Comments Patient Comments Pt agreeable to working with therapy when returned 2nd attempt. Patient Goals Beginning of tx: Return home with friends, HHPT and [facility] [place] to assist her. End of tx: I think going to a facility would be best so I don't inconvenience my friend and our relationship with needing more help at home. Therapy Pain Assessment Pain Present Pain Present Denied Pain M4 PT-IP Mobility and Gait Start: 08/27/21 13:16 Freq: NEEDED Status: Active Protocol: Document 08/28/21 10:48 SP (Rec: 08/28/21 13:59 SP [id number]) PT-Bed Mobility Assessment Supine to Sit Supine to Sit Standby Assistance Sit to Supine Sit to Supine Standby Assistance Scooting Scooting to Edge of Bed Standby Assistance PT-Transfer Assessment Sit to and From Stand Sit to and from Stand Contact Guard Assistance, Minimal Assistance,1 Person Assistance,Use of Upper Extremities Equipment Transfer Assistive Device Gait Belt,Front Wheeled Walker Orthotic/Prosthetic Devices or Brace: No Transfers Transfer Destination Bed,Chair Transfer Technique ambulated Transfer Ability Level of Assist Contact Guard Assistance, Minimal Assistance,1 Person Assistance,Use of Upper Extremities Comments Mobility Comments Pt was eating breakfast when arrived, asked if can come back later. When returned pt was walking back from shower with BELLING MACHINE OPERATOR, BELLING MACHINE OPERATOR provided feedback to CIRCULATION ASSISTANT that pt unsteady on feet in bathroom and provided Min A at times for safety balance in standing while using FWW. Pt demonstrated SOB, cues for backing up fully to chair w/ FWW fully before reaching back to sit in chair, CGA. Ed pursed lip breathing. After 3 min rest in chair, sit>stand CGA,cues for pushing from chair and not hands on FWW. Ambulated to R side of bed ( side uses at home) 15 ft, cues for positioning FWW and sit closer to HOB and safety reaching back for bed, pt tends to have hands on FWW and plopped on bed. Completed sit <> supine Mod I. When returnd to sit, provided 4WW with education on safety use of positioning and brake mgt. Pt forgot to don brakes prior to standing, pulled from 4WW and demonstrated posterior lean BLE pressed into bed to stand provided 10% A for forward body positioning while giving education to pt on was providing assist from behind for forward posture lean and importance of proper hand placement on bed to stand with hip hinge COG over ALBIN. Pt returned to sit on bed, acknowledge understanding. Sit >stand CGA difficulty applying 4WW brakes, good carryover hip hinge push from bed. Pt ambulated into hallway,cues for body closer to 4WW and apply brakes for slower pacing with difficulty understanding how to complete, noted posterior lean initial R necktie turner of room 5%A for recovery and contact on 4WW for safety maintain close to body. Pt progressed gait around nursing station using 4WW with occcasional cues for body closer to 4WW, (is at proper height for her), tall posture decrease flex posture. Pt states her 4WW is taller and didn't know about brakes. Cues and education on awareness of stop stand rests for recovery breath in nose/ out mouth due to increase respiratory audible. Pt returned to room, cues required reminders sit closer to HOB, 4WW brake mgt and reaching back prior to sit CGA. sit>supine Mod I. Pt had call light and all needs in reach with bed alarmed. CIRCULATION ASSISTANT spent extensive time education on recommendation of / HHPT vs SNF due to decreased balance during mobility requiring low Min A x1 for safety recovery. CIRCULATION ASSISTANT communicated with care mgt while on speaker phone with ROQUE then Dr Salinas updates with lack of safety and stability progress mobility and pt welcoming to opportunity of possibility of SNF for skilled rehab strengthening improving toward functional independence before returning home. Gait Assessment Gait Gait Assistance Required: Contact Guard Assist,Minimum Assistance Distance (Feet) 200 Able to Maintain Weight Bearing Status Yes During Gait Assistive Devices Assistive Device Gait Belt,Front Wheeled Walker Orthotic/Prosthetic Devices or Brace: No Gait Deviations General Gait Pattern Antalgic,Decreased Stride Length,Decreased Feet Clearance,Flexed Trunk Factors Limiting Gait Function Factors Limiting Gait Function Decreased Activity Tolerance, Decreased Strength,Difficulty Following Directions,Poor Balance,Poor Safety Awareness, Respiratory Distress Comments Gait Comments see mobility comments. Stair Climbing Assessment Comments Stair Climbing Comments Does not have stairs, not need to assess. PT-Balance Assessment Sitting Balance and Reactions Static Sitting Balance Ability Normal Dynamic Sitting Balance Ability Good Standing Balance and Reactions Static Standing Balance Ability Good Dynamic Standing Balance Ability Fair Device Used FWW M5 PT-IP Objective Assessments Start: 08/27/21 13:16 Freq: NEEDED Status: Active Protocol: Document 08/27/21 12:07 AB (Rec: 08/27/21 15:40 AB [id number]) Orientation Orientation/Cognition Level of Alertness Alert Orientation Name,Place,Situation Language Function Ability Hard of Hearing Safety Awareness Decreased Safety Awareness Memory Description No Deficits Noted Gross Range of Motion Lower Extremity ROM Assessment Within Functional Limits Strength Lower Extremity Strength Hip 4-/5 Knee 4-/5 Muscle Tone Muscle Tone WNL Yes M6 PT-IP Treatment Start: 08/27/21 13:16 Freq: NEEDED Status: Active Protocol: Document 08/28/21 10:48 SP (Rec: 08/28/21 13:59 SP [id number]) Physical Therapy Treatment Education Education Provided Safety Other Treatments Other Treatment Performed Education on safety use of HP and 4WW brake mgt. Education on purse lip breath during mobility for decrease SOB noted, stand closer to AD, stop stand rests for energy conservation. M7 PT-IP Assessment and Plan Start: 08/27/21 13:16 Freq: NEEDED Status: Active Protocol: Document 08/28/21 10:48 SP (Rec: 08/28/21 13:59 SP [id number]) PT Summary Assessment and Plan Potential Rehabilitation Potential Fair Status of Condition at Evaluation Stable Summary Impairments Pain,Strength,Balance, Cognition,Bed Mobility, Transfers,Gait,Activity Tolerance Progress Towards Goals Progressing Toward Goals,Slow Progress due to Activity Tolerance Assessment Summary Pt demonstrated decreased balance steadiness during shower mobility reported by BELLING MACHINE OPERATOR pre CIRCULATION ASSISTANT arrival, noted same posterior lean requirng Min A for recovery, many safety cueing for safety pre sit/ stand, proper breath and closer to FWW/4WW during tx. Bed mob Krista, Sit<>stand, transfers and gait CG- Min A. Pt is unsafe use with 4WW at this time, recommending fWW use at this time for safety. Recommending SNF vs 24/7 assist available which pt does not have 24/7 assist available to her. Pt agreeable to SNF if qualifies to get stronger prior to DC home. Will continue to assess progress. Goals Bed Mobility Goal Independent Transfer Goal Independent,Four Wheeled Walker Gait Goal Independent,Four Wheel Walker Gait Distance 250 Days to Meet Goals 5 Frequency of Treatment Frequency Of Treatment Once a Day Treatment Plan Physical Therapy Treatment Plan Bed Mobility Training,Transfer Training,Gait Training, Therapeutic Exercise,Balance Retraining,Discharge Planning, Neuromuscular Re-ed, Coordination Retraining Other Recommendations and Next Treatment transfers, gait using fww vs Focus 4ww, stationary and dynamic balance. Precautions Other Precautions fall risk Recommendations To Nursing Amount of Assist Needed 1 Person Assist Discharge Recommendations PT Discharge Recommendations Home with 24/7 Assist Available,Home Health,SNF Rehab,Home vs SNF Equipment Needed for Home Before Will require FWW if unsafe Discharge with 4WW prior to DC home. Transportation Needs at Discharge Private Vehicle,Wheelchair/ Cabulance
--- NOTE | 2021-08-28 12:04 | P.PN_ITS ---
Subjective Subjective Date Patient Seen: 08/28/21 Time Patient Seen: 12:04 Interval history: The patient is an 81-year-old female admitted to the hospital with acute respiratory failure..? Patient has been diuresed nicely, she is no longer on BiPAP, oxygenation has improved significantly and she is now on room air.? She does complain of being somewhat short of breath but is markedly improved since admission and even since yesterday. She was recommended for home with assistance, with PT today she was still weak and may require SNF. Exam Vital Signs (past 8 hours): - 08/28/21 05:00 08/28/21 08:15 08/28/21 08:25 Temperature 97.3 F L 98.2 F Pulse Rate 88 86 Respiratory Rate 20 18 Blood Pressure 120/57 L 145/66 H Pulse Oximetry 96 98 98 08/28/21 08:39 08/28/21 11:01 Temperature 98.1 F Pulse Rate 83 Respiratory Rate 20 Blood Pressure 125/61 Pulse Oximetry 98 98 Fraction of Inspired Oxygen 25 Oxygen Delivery Method Room Air Oxygen Flow Rate 0 Narrative Exam Narrative: Pleasant female lying in bed in no acute distress. Resp Other:?Lungs: Decreased breath sounds bilaterally, LLL crackles, Right CTA Cardio Other:?Cardiac exam: Regular rate and rhythm normal S1-S2 GI Other:?Abdomen:? Soft nontender nondistended Skin Other:?Extremities: trace pre-tibial edema bilaterally, R slightly greater than L. Objective Labs Result Diagrams: 08/28/21 04:44 08/28/21 04:44 Labs: Laboratory Results - last 24 hr 08/28/21 08/28/21 08/28/21 04:44 04:44 04:44 WBC 8.2 RBC 4.03 Hgb 12.2 Hct 36.9 MCV 91.7 MCH 30.2 MCHC 33.0 RDW 13.9 Plt Count 182 Neut % (Auto) 69.9 Lymph % (Auto) 9.1 L [place] % (Auto) 15.9 H Eos % (Auto) 4.1 H Baso % (Auto) 1.0 Neut # (Auto) 5700 Lymph # (Auto) 700 L [place] # (Auto) 1300 H Eos # (Auto) 300 Baso # (Auto) 100 APTT Sodium 131 L Potassium 3.9 Chloride 89 L Carbon Dioxide 36 H BUN 49 H Creatinine 1.15 H Estimated GFR 45.2 L BUN/Creatinine Ratio 42.6 H Glucose 158 H Calcium 9.4 Magnesium 2.2 Total Bilirubin 0.6 AST 29 ALT 27 Alkaline Phosphatase 63 Total Protein 7.3 Albumin 4.0 Globulin 3.3 Albumin/Globulin Ratio 1.2 08/28/21 04:44 WBC RBC Hgb Hct MCV MCH MCHC RDW Plt Count Neut % (Auto) Lymph % (Auto) [place] % (Auto) Eos % (Auto) Baso % (Auto) Neut # (Auto) Lymph # (Auto) [place] # (Auto) Eos # (Auto) Baso # (Auto) APTT 31 Sodium Potassium Chloride Carbon Dioxide BUN Creatinine Estimated GFR BUN/Creatinine Ratio Glucose Calcium Magnesium Total Bilirubin AST ALT Alkaline Phosphatase Total Protein Albumin Globulin Albumin/Globulin Ratio [facility] Medical History (Updated 08/25/21 @ 20:42 by FRANCISCO GuerinSOCRATES) Chronic hyponatremia Essential (primary) hypertension Heart failure with preserved ejection fraction Hypertension Insomnia Paroxysmal atrial fibrillation Sleep apnea Valvular heart disease Surgical History (Updated 08/25/21 @ 20:40 by KAUSHIK Guerin) History of lung surgery Family History Mother Congestive heart failure Father Patient killed Social History household members: none lives independently: Yes Smoking Status: Never smoker alcohol intake: never Assessment & Plan Assessment & Plan narrative: . Acute hypoxic respiratory failure, resolved -secondary to flash pulmonary edema -likely exacerbated by hypertensive urgency -acute congestive heart failure, preserved ejection fraction, likely secondary to diastolic dysfunction -patient is diuresing nicely, will convert to oral lasix today. -recommend outpatient cardiology follow up 2. acute diastolic heart failure with preserved ejection fraction ?-echo reveals moderate to severe aortic regurgitation, normal EF. ?- continue diuresis 3. Paroxysmal Atrial Fibrillation -continue apixaban -rate controlled 4. Hyponatremia -serum sodium 131, stable. -likely related to volume overload -will follow 5. Hyperlipidemia -continue statin 6. Hypertensive urgency -blood pressure improved on IV lasix -need to ensure better outpatient control -will need outpatient adjustment likely. 7. KARO - likely due to aggressive diuresis, will slow to PO lasix today, continue to monitor. patient is DNR/DNI and is noted in her record Time Spent With Patient Critical Care time: I spent a total of [] minutes of critical care time on this patient's care today; this time is exclusive of procedural time.
[2021-08-28] MEDS: SODIUM CHLORIDE 0.9% FLUSH 10 ML IV ×2 (12:11→20:59)
--- NOTE | 2021-08-28 12:23 | CM.DPC ---
DCP Note SUCTION PLATE ROLLER HAND calls Sharron at [facility] and informs her that patient will be using another provider. SUCTION PLATE ROLLER HAND calls Isamar at [facility] and informs her of HH referral for RN, OT, and PT. SUCTION PLATE ROLLER HAND faxes referral for review and endorse's patient's preference of providers' covid vaccination. Plan: Patient to d/c to home when medically clear with [facility]. ROD Toribio
--- NOTE | 2021-08-28 15:39 | CM.DPNOTE ---
Addendum entered by ROD Munoz 08/28/21 15:47: ADD: Had lengthy conversations w/both patient and friend Yani re: initiating/increasing in home help for patient (patient currently has visiting pranay). JW Original Note: DCP Note Expected to arrange DC home w/friend Yani and HH today; PT recommending SNF and patient agreeable. Included friend Yani P#[phone] in DCP efforts per patient's request Dr Brad mary w/ DC Monday Spoke w/Elizabeth at [facility]; patient will need updated COVID PCR and copy of vaccination card but is clinically accepted for admission Monday08.29.21 PASRR completed. Updated patient on DCP efforts. HH referral secured w/ [facility] as b/u plan; patient requested ONLY fully vaccinated HH professionals in her home which [facility] can provide, [facility] unable to provide at this time Following closely for coordination of DCP JW
--- NOTE | 2021-08-28 16:11 | PC.NURSE ---
Report received, care assumed 1530. A&Ox4. Very CHIGNIK LAGOON. 1-person assist OOB, standby assist with FWW to ambulate to bathroom. Voiding after Colbert discontinued this morning. Pt. expresses concern about skin breakdown as she has experienced a coccyx pressure sore in the past; however, her skin is intact, smooth, normal in color and appearance other than her old scar. Lotion applied to back. Pt. encouraged to reposition frequently.
[2021-08-29] VITALS: O2SAT 97
[2021-08-29 00:51] VITALS: BP 124/60; PULSE 75; RESP 18; TEMP 36.3; O2SAT 95
[2021-08-29 04:05] VITALS: O2SAT 96
[2021-08-29 05:00] VITALS: BP 158/70; PULSE 71; RESP 18; TEMP 36.6; O2SAT 97
[2021-08-29 05:46] LABS: PTT Partial Thromboplastin Tim 31 SECONDS (26.4-36.2)
[2021-08-29 05:53] LABS: BUN Creatinine Ratio 44.4 (6-22); Blood Urea Nitrogen 44 mg/dL (7-17); Calcium 9.6 mg/dL (8.4-10.2); Carbon Dioxide 37 mmol/L (22-32); Chloride 91 mmol/L (98-107); Estimated Glomerular Filt Rate 53.7 mL/min (>60); Glucose 100 mg/dL (80-110); HEMOLYSIS < 15 (0-50); Magnesium 2.1 mg/dL (1.6-2.3); Potassium 4.6 mmol/L (3.4-5.1); Sodium 132 mmol/L (137-145)
[2021-08-29 08:11] VITALS: BP 158/71; PULSE 75; RESP 16; TEMP 36.7; O2SAT 96
[2021-08-29 08:30] VITALS: O2SAT 97
[2021-08-29] MEDS: ATORVASTATIN 20 MG TABLET 10 MG PO (08:50)
[2021-08-29] MEDS: AMLODIPINE 5 MG TABLET PO (08:50)
[2021-08-29] MEDS: METOPROLOL ER 25 MG TABLET PO (08:50)
[2021-08-29] MEDS: APIXABAN 5 MG TABLET 2.5 MG PO (08:50)
[2021-08-29] MEDS: FUROSEMIDE 40 MG TABLET 20 MG PO (08:50)
[2021-08-29] MEDS: SODIUM CHLORIDE 0.9% FLUSH 10 ML IV (08:51)
--- NOTE | 2021-08-29 10:20 | PM.DS.1 ---
History of Present Illness History of Present Illness Date Patient Seen: 08/29/21 Time Patient Seen: 08:45 Chief complaint: High BP- wants her seen Narrative: Per Mellisa Bourne, [facility]-: Maame Sanchez is a delightful 81-year-old female who presents with concern for hypertension sent by her primary care physician but patient is acutely dyspneic.? She has a history of left bundle branch block, hypertension, dyslipidemia with valvular heart disease, paroxysmal atrial fibrillation and is on daily anticoagulation.? Patient is quite hard of hearing and very short of breath and so it is difficult to have a true HPI performed.?Patient is unable to complete full sentences without significant SOB.? Patient states that she had previously been on Lasix and spironolactone but that these medications had been stopped back in May by her PCP Dr. Pizarro.? The patient notes that she began having increasing shortness of breath and fatigue approximately 2 weeks ago and has only continued to worsen.? She denies swelling of her extremities, Chest pain. pressure, numbness tingling, weakness, abdominal pain, nausea, vomiting, diarrhea, chills, urinary symptoms, falls, recent injury illness or trauma.? Patient denies any recent changes to her medications. Initial vitals upon admit temp 97.2?, BP 183/79, HR 78, tachypneic RR 26, O2 saturation 99% on 3 L nasal cannula.? Patient continues to be significantly short of breath even with supplementary oxygen at this time.? In the ED patient had been using intermittent BiPAP as needed for symptom relief, her intial symptoms SOB & HTN urgency improved in ED with Lasix, Bipap, and Nitro paste. ? Initial ABGs pH 7.35, pCO2 59.7, PO2 430, HC03 33, TCO2 35, O2 sat 100%, BE 7.0, FiO2 100.? Patient has elevated WBC 11.8, with a left shift neutrophils 10,100, sodium 128 patient suffers from chronic hyponatremia 129-130's, chloride 89, BUN 33, glucose 2 O2, AST 41, ALT 44.? Patient had an elevated dimer 645, CTA was performed was negative for PE was positive for pulmonary edema, pleural effusions and possible pulmonary hypertension. Patient CXR demonstrated small to moderate left-sided pleural effusion with left lung atelectasis/infiltrates.? COPD.? No gross pneumothorax. Patient's lactate, LD, procalcitonin, and CRP were all normal.? Patient's initial troponin 0.030, BNP 3460, total protein 8.6. Intial EKG Sinus rhythm left axis deviation left bundle-branch block.? Rate of 90 6p are 190 QRS of 148 QTC of 530.? Patient has a prior from 04/29/[address] segments except for V6 is inverted today.? Patient admitted for acute hypercapnic hypoxic respiratory failure due to hypertensive urgency and heart failure exacerbation. Discharge Providers Provider Date of admission: 08/25/21 16:14 Discharge Date: 08/29/21 Primary care physician: Pardeep Pizarro MD Consults: 08/25/21 19:33 Consult to Respiratory Therapy Evaluate & Treat Comment: Acute Resp Failure/HF-PRN Physician Instructions: Evaluate and treat 08/25/21 20:16 Consult to Tele-form block maker Routine Comment: Consulting Provider: [employer] Reason for consultation: [employer] services Has provider been notified: Yes 08/26/21 14:43 Consult to Home Health Routine Comment: Reason For Exam: Home Health upon DC 08/27/21 08:35 Consult to Physical Therapy Evaluate & Treat Comment: Physician Instructions: Evaluate and Treat Discharge provider: Momo Salinas DO Summary Hospital Course Discharge Diagnosis: Please see hospital course by problem list noted below Hospital Course: 1. Acute hypoxic respiratory failure, resolved -secondary to flash pulmonary edema and acute diastolic heart failure. patient improved quickly with diuresis and no longer requires supplemental oxygen. 2. acute diastolic heart failure with preserved ejection fraction ?-echo reveals moderate to severe aortic regurgitation, normal EF. Patient was diuresed with improvement in symptoms. Continue furosemide 20 mg PO daily as an outpatient for BP and volume control. 3. Paroxysmal Atrial Fibrillation -continue apixaban -rate controlled on metoprolol here. Can resume nadolol on discharge. 4. Hyponatremia, possibly chronic -serum sodium 132, stable and asymptomatic. No further evaluation necessary. 5. Hyperlipidemia -continued statin 6. Hypertensive urgency -blood pressure improved on IV lasix. Need to ensure better outpatient control, discharged on furosemide 20 mg daily. will need outpatient adjustments. 7. KARO, resolved ? - likely due to aggressive diuresis, slowed to PO lasix with subsequent improvement. Time Spent with Patient Time spent: Greater than 30 minutes Exam Vital Signs (past 8 hours): - 08/29/21 04:05 08/29/21 05:00 08/29/21 08:11 Temperature 97.9 F 98.1 F Pulse Rate 71 75 Respiratory Rate 18 16 Blood Pressure 158/70 H 158/71 H Pulse Oximetry 96 97 96 08/29/21 08:30 Temperature Pulse Rate Respiratory Rate Blood Pressure Pulse Oximetry 97 Fraction of Inspired Oxygen 25 Oxygen Delivery Method Room Air Oxygen Flow Rate 0 Narrative Exam Narrative: Pleasant female lying in bed in no acute distress. Resp Other:?Lungs: Decreased breath sounds bilaterally, LLL crackles minimal, Right lung CTA Cardio Other:?Cardiac exam: Regular rate and rhythm normal S1-S2 GI Other:?Abdomen:? Soft nontender nondistended Skin Other:?Extremities: no edema or joint effusion. Objective Labs Result Diagrams: 08/28/21 04:44 08/29/21 04:57 Labs: Laboratory Results - last 24 hr 08/29/21 08/29/21 04:57 04:57 APTT 31 Sodium 132 L Potassium 4.6 Chloride 91 L Carbon Dioxide 37 H BUN 44 H Creatinine 0.99 Estimated GFR 53.7 L BUN/Creatinine Ratio 44.4 H Glucose 100 Calcium 9.6 Magnesium 2.1 PFSH Medical History (Updated 08/25/21 @ 20:42 by KAUSHIK Guerin) Chronic hyponatremia Essential (primary) hypertension Heart failure with preserved ejection fraction Hypertension Insomnia Paroxysmal atrial fibrillation Sleep apnea Valvular heart disease Surgical History (Updated 08/25/21 @ 20:40 by KAUSHIK Guerin) History of lung surgery Family History Mother Congestive heart failure Father Patient killed Social History household members: none lives independently: Yes Smoking Status: Never smoker alcohol intake: never Discharge Plan Discharge Plan Patient Disposition: SNF Transfer to: [facility] Healthcare Provider Discharge Comment: 1. Acute hypoxic respiratory failure, resolved -secondary to flash pulmonary edema and acute diastolic heart failure. patient improved quickly with diuresis and no longer requires supplemental oxygen. 2. acute diastolic heart failure with preserved ejection fraction ?-echo reveals moderate to severe aortic regurgitation, normal EF. Patient was diuresed with improvement in symptoms. Continue furosemide 20 mg PO daily as an outpatient for BP and volume control. 3. Paroxysmal Atrial Fibrillation -continue apixaban -rate controlled on metoprolol here. Can resume nadolol on discharge. 4. Hyponatremia, possibly chronic -serum sodium 132, stable and asymptomatic. No further evaluation necessary. 5. Hyperlipidemia -continued statin 6. Hypertensive urgency -blood pressure improved on IV lasix -need to ensure better outpatient control, discharged on furosemide 20 mg daily. -will need outpatient adjustment likely. 7. KARO, resolved ?- likely due to aggressive diuresis, slowed to PO lasix with subsequent improvement. Discharge orders & Medications Prescriptions: New furosemide 40 mg tablet 40 mg PO BID 30 Days Qty: 60 RF: 0 Continued apixaban 2.5 mg tablet 2.5 mg PO BID RF: 0 simvastatin 5 mg tablet 5 mg PO DAILY RF: 0 amlodipine [Norvasc] 5 mg Tablet 5 mg PO DAILY Qty: 30 RF: 0 nadolol 40 mg tablet 40 mg PO BEDTIME RF: 0 Follow up/Referrals: Pardeep Pizarro MD [Primary Care Provider] - 1 Week (Please call and schedule this appointment first thing on Monday, 2020. ) Discharge Health Status Multidrug resistant organism: No MDRO Precautions: [place] Diet/Activity/Treatments Diet: Diet as Tolerated and Low-sodium Liquid consistency: Normal/Thin Food texture: Regular Activity: As tolerated, no restrictions Special Rehabilitation Services Reason for rehabilitation: Recovery r/t decondition Visit Report/Discharge Packet Instructions: DI for Heart Failure, Furosemide Discharge Data Primary Care Provider: Pardeep Pizarro V
--- NOTE | 2021-08-29 10:51 | CM.DPC ---
Addendum entered by ROD Garnica 08/29/21 12:33: ADD: Per RN, discovered pt had copy of her vaccine card on her phone and was able to email to JAIDEN work email and JAIDEN called [facility] and updated and faxed d/c summ, updated JITENDRA holliday, orders, PASRR, signed med rec and COVID vaccine card to [facility] to review and they can accept today at 1430 and SW updated RN, MD, and attendant lodging facilities. BF Addendum entered by ROD Garnica 08/29/21 11:53: ADD: Per Sima at [facility], due to not having access today to confirming pt's COVID vaccination card/status and not having a female private room available for quarantine until confirmation of pt's COVID vaccination status tomorrow (Mon) they cannot accept pt today and will have to wait until tomorrow. JAIDEN updated MD (who attempted to get access for vaccination site and cannot) and updated RN. Plan: JAIDEN to follow for d/c tomorrow to [facility] once vaccination card/status obtained. updated COVID swab obtained today. BF Original Note: DCP Discharge SNF Per MD, pt is medically stable to d/c to SNF today and no identified barriers to discharge. JAIDEN called [facility] and updated on d/c and [facility] needs to know if pt uses CPAP and if copy of COVID vaccination card. JAIDEN met bedside with pt and explained role and she confirms that she was vaccinated at [facility] in January 2021 but no copy of her card on her and no friend/family local to get the copy. [facility] closed today as its Monday. Pt also states she has been in the process of getting a CPAP over the past month but has not received and per RN pt hasn't used/needed CPAP while admitted. JAIDEN called and updated [facility] and they will confirm if they need to put pt in quarantine until copy of COVID card can be obtained tomorrow and will call back. Pt is agreeable to d/c to SNF today but concerned that she does not have many clothes with her and SW discussed the basic necessities provided and encouraged her to call a friend to get some of her personal effects to bring and visit and pt understands. Plan: JAIDEN to follow for faxing d/c packet to [facility] to review and confirming what time for transport. ROD Garnica
[2021-08-29 11:58] LABS: COVID19 -Nasal RAPID Negative (Negative)
--- NOTE | 2021-08-29 13:20 | PC.NURSE ---
Addendum entered by Janes Coe R.N. 08/29/21 14:50: Pt left via w/c with facility transporter with all belongings at 1440. Original Note: Reviewed dc education with pt. Reviewed medications. Pt verbalizes understanding and is agreeable to plan- going to SNF at 1430. Removed PIV with cath tip intact. Report called to [facility] rehab admit nurseSheri at 1320.
== END 2021-08-29 14:40 | DRG 291 ==
LOC: ED 15:53 → AC 17:13 → ICU 08-26 08:35 → AC 08-27 15:34
PROVIDERS: Internal Medicine; Internal Medicine Critical Care Medicine; Nurse Practitioner Family; Admitting Provider Internal Medicine; Emergency Provider Emergency Medicine; PCP Internal Medicine; Referring Provider Emergency Medicine; Visit Provider Internal Medicine
DX: I11.0 Hypertensive heart disease with heart failure (principal); I50.33 Acute on chronic diastolic (congestive) heart failure; J96.01 Acute respiratory failure with hypoxia; E87.1 Hypo-osmolality and hyponatremia; N17.9 Acute kidney failure, unspecified; I44.7 Left bundle-branch block, unspecified; I48.0 Paroxysmal atrial fibrillation; Z79.01 Long term (current) use of anticoagulants; I16.0 Hypertensive urgency; E86.0 Dehydration; E78.5 Hyperlipidemia, unspecified; Z20.822 Contact with and (suspected) exposure to COVID-19; Z66 Do not resuscitate
CPT/HCPCS: 36415; 36600; 71045; 71275; 80048; 80053; 81001; 82550; 82728; 82805; 83036; 83605; 83615; 83735; 83880; 84145; 84300; 84443; 84484; 85025; 85379; 85610; 85730; 86140; 87040; 87635; 87797; 93005; 94660; 94760; 94762; 96374; 97116; 97161; 97530; 99285; 99291; C9803; J1940

== ENCOUNTER → 2021-11-19 11:04 | Outpatient (CLI) | payer MEDICARE, SELFPAY ==
[2021-08-25 15:10] VITALS: PULSE 90; RESP 21; O2SAT 94
[2021-08-25 16:31] VITALS: BMI 23.3
[2021-11-19 13:31] LABS: COVID-19 CEPHEID PCR (VTM/NP) Negative (Negative)
== END ==
PROVIDERS: PCP Internal Medicine; Referring Provider Internal Medicine; Visit Provider Internal Medicine
DX: Z20.822 Contact with and (suspected) exposure to COVID-19 (principal)
CPT/HCPCS: C9803; U0003

== ENCOUNTER → 2021-11-19 13:06 | Outpatient (CLI) | payer MEDICARE, SELFPAY ==
[2021-08-25 15:10] VITALS: PULSE 90; RESP 21; O2SAT 94
[2021-08-25 16:31] VITALS: BMI 23.3
--- NOTE | 2021-11-24 09:55 | PM.PFT.1 ---
Pulmonary Function Test Referral & Results Date Patient Seen: 11/19/21 Requesting provider: Osmel Luna Results: The spirometry demonstrates an FVC of 1.31 L which is 47% of predicted. The FEV1 was measured at 0.8 L which is 39% of predicted. The FEV1/FVC ratio was 61 which is 83% of predicted. Following the administration of bronchodilator there was no notable change Lung volumes show an SVC of 1.36 L which is 40% of predicted. The diffusing capacity was measured at 13.16 which is 48% of predicted. No hemoglobin value was provided, so no correction for potential anemia could be made, if appropriate. The maximum voluntary ventilation was severely reduced Interpretation: This study demonstrates severe obstructive and restrictive lung disease. FEV1 is less than 1 L There is also evidence of moderately severe disease at the capillary alveolar level based on reduction in diffusing capacity This is consistent with diagnosis of moderately severe COPD Clinical correlation suggested
== END ==
PROVIDERS: PCP Internal Medicine; Referring Provider Internal Medicine; Visit Provider Internal Medicine
DX: J98.19 Other pulmonary collapse (principal); J90 Pleural effusion, not elsewhere classified
CPT/HCPCS: 94060; 94726; 94729

== ENCOUNTER 2022-01-12 12:30 | Outpatient (RCR) | payer MEDICARE, SELFPAY ==
[2021-08-25 15:10] VITALS: PULSE 90; RESP 21; O2SAT 94
[2021-08-25 16:31] VITALS: BMI 23.3
== END 2022-01-12 15:30 ==
LOC: PUL 12:30
PROVIDERS: PCP Internal Medicine; Referring Provider Internal Medicine Cardiovascular Disease; Visit Provider Internal Medicine Cardiovascular Disease
DX: R06.02 Shortness of breath (principal)
CPT/HCPCS: G0237; G0238

== ENCOUNTER → 2022-01-19 15:45 | Outpatient (CLI) | payer MEDICARE, SELFPAY ==
[2021-08-25 15:10] VITALS: PULSE 90; RESP 21; O2SAT 94
[2021-08-25 16:31] VITALS: BMI 23.3
[2022-01-19 17:30] LABS: Add Manual Diff / Slide Review NO; Basophils Absolute Auto 100 /uL (0-100); Basophils Percent Auto 1.2 % (0-2); Eosinophils Absolute Auto 200 /uL (0-450); Eosinophils Percent Auto 2.8 % (2-4); Hematocrit 35.1 % (36-46); Lymphocytes Absolute Auto 700 /uL (1100-4500); Lymphocytes Percent Auto 12.2 % (25-40); Mean Corpuscular HGB Conc 34.2 % (30-36); Mean Corpuscular Hemoglobin 30.9 PG (26-34); Mean Corpuscular Volume 90.5 fL (80-100); Monocytes Absolute Auto 700 /uL (0-900); Monocytes Percent Auto 12.5 % (3-14); Neutrophils Absolute Auto 4200 /uL (1500-7000); Neutrophils Percent Auto 71.3 % (50-75); Platelet Count 162 X10^3/uL (150-400); Red Blood Cell Count 3.87 X10^6/uL (4.0-5.2); Red Cell Distribution Width 14.2 % (11.6-14.8); White Blood Cell Count 5.8 X10^3/uL (4.5-11.0)
[2022-01-19 17:48] LABS: Alanine Aminotransferase 32 IU/L (<35); Albumin 4.4 g/dL (3.5-5.0); Albumin Globulin Ratio 1.2 (1.0-2.8); Alkaline Phosphatase 63 U/L (38-126); Aspartate Aminotransferase 33 IU/L (14-36); BUN Creatinine Ratio 34.9 (6-22); Bilirubin Total 0.7 mg/dL (0.2-1.3); Blood Urea Nitrogen 30 mg/dL (7-17); Calcium 9.6 mg/dL (8.4-10.2); Carbon Dioxide 29 mmol/L (22-32); Chloride 95 mmol/L (98-107); Estimated Glomerular Filt Rate > 60.0 mL/min (>60); Globulin 3.6 g/dL (1.7-4.1); Glucose 116 mg/dL (80-110); HEMOLYSIS < 15 (0-50); Magnesium 2.2 mg/dL (1.6-2.3); Potassium 4.6 mmol/L (3.4-5.1); Sodium 130 mmol/L (137-145)
[2022-01-21 14:08] LABS: Appearance Urine UA CLEAR; Bilirubin Urine UA NEGATIVE (NEGATIVE); Color Urine UA YELLOW; Glucose Urine UA NEGATIVE (Negative); Ketones Urine UA NEGATIVE (NEGATIVE); Leukocyte Esterase Urine UA TRACE (NEGATIVE); Nitrite Urine UA POSITIVE (Negative); Occult Blood Urine UA NEGATIVE (Negative); Protein Urine UA NEGATIVE (Negative); Urobilinogen Urine UA 0.2 E.U./dL (0.2)
[2022-01-21 14:42] LABS: pH Urine UA 6.5 (4.5-8.0)
[2022-01-21 14:43] LABS: Bacteria Urine Few (2-10); Culture Indicated Urine Cult Not Indicated; RBC Urine 0-1/HPF (0-5/HPF); Squamous Epithelial Cell Urine 1-5 /HPF (0-5/HPF); WBC Urine 1-5/HPF (0-5/HPF)
== END ==
PROVIDERS: PCP Internal Medicine; Referring Provider Internal Medicine Cardiovascular Disease; Visit Provider Internal Medicine Cardiovascular Disease
DX: I82.290 Acute embolism and thrombosis of other thoracic veins (principal); I50.32 Chronic diastolic (congestive) heart failure; R35.1 Nocturia; I35.1 Nonrheumatic aortic (valve) insufficiency; I31.1 Chronic constrictive pericarditis; J90 Pleural effusion, not elsewhere classified; E78.2 Mixed hyperlipidemia; I48.0 Paroxysmal atrial fibrillation; Q27.8 Other specified congenital malformations of peripheral vascular system
CPT/HCPCS: 36415; 80053; 81001; 83735; 85025; 87086

== ENCOUNTER 2022-03-27 20:08 | Inpatient (IN) | payer MEDICARE, SELFPAY ==
[2021-08-25 15:10] VITALS: PULSE 90; RESP 21; O2SAT 94
[2021-08-25 16:31] VITALS: BMI 23.3
[2022-03-27] VITALS (20 sets, daily range): BP systolic 106–183; BP diastolic 55–80; PULSE 58–130; RESP 18–36; TEMP 36.9; O2SAT 90–100; BMI 23.7
--- NOTE | 2022-03-27 20:16 | ED.GENADULT ---
HPI - General Adult General Chief complaint: Shortness of Breath/Dyspnea Stated complaint: Resp distress Time Seen by Provider: 03/27/22 20:16 Source: patient and EMS Mode of arrival: EMS Limitations: other (Respiratory distress) History of Present Illness HPI narrative: 81-year-old female. Has multiple chronic medical problems to include paroxysmal atrial fibrillation for which she is on apixaban. Also has a history of ejection fraction preserved heart failure, hypertension and also reports of issues with her trachea to the point where she states that she ?cannot ?get intubated. She is brought to the emergency department today by EMS after neighbors went to check on her and found her pale and diaphoretic and very poor appearing. EMS was contacted. Upon their arrival they found her tachypneic and in respiratory distress. Oxygen saturations in the 70s. She had course/wheezing breath sounds bilateral. She was given 1 DuoNeb and 1 albuterol nebulizer and placed on oxygen which seem to improve her oxygen saturations. Initially patient was unable to provide any HPI given her presenting respiratory distress however throughout her stay we found that she is not having chest pain. She has been progressively worsening shortness of breath over the past couple days which is worsened over the past 12-24 hours. Denies abdominal pain. Unable to obtain any other review of systems secondary to her presentation. Related Data Home Medications Medication Instructions Recorded Confirmed simvastatin 5 mg tablet 5 mg PO BEDTIME 04/28/21 03/27/22 acetaminophen 325 mg capsule 325 mg PO ONCE PRN 02/23/22 03/27/22 amlodipine 2.5 mg tablet 5 mg PO BEDTIME tab 02/23/22 03/27/22 cholecalciferol (vitamin D3) 25 25 mcg PO QNOON 02/23/22 03/27/22 mcg (1,000 unit) capsule magnesium oxide 400 mg PO DAILY 02/23/22 03/27/22 vitamin K2 100 mcg capsule 100 mcg PO DAILY 02/23/22 03/27/22 fluticasone propionate 50 1 spray INTRANASAL DAILY 03/27/22 03/27/22 mcg/actuation nasal spray,suspension nadolol 40 mg tablet 40 mg PO BEDTIME 03/27/22 03/27/22 Previous Rx's Medication Instructions Recorded apixaban 2.5 mg tablet 2.5 mg PO BID #180 tab 03/11/22 Allergies Allergy/AdvReac Type Severity Reaction Status Date / Time acetaminophen Allergy Verified 03/27/22 20:22 calcium carbonate Allergy Verified 03/27/22 20:22 [From Excedrin Back and Body] ergotamine Allergy Verified 03/27/22 20:22 Sulfa (Sulfonamide Allergy Verified 03/27/22 20:22 Antibiotics) prednisolone acetate, AdvReac Mild Weakness Verified 03/27/22 20:22 micronized aspirin AdvReac Verified 03/27/22 20:22 [From Excedrin Back and Body] clindamycin AdvReac Verified 03/27/22 20:22 ferrous sulfate AdvReac Verified 03/27/22 20:22 guaifenesin AdvReac Verified 03/27/22 20:22 NSAIDS (Non-Steroidal AdvReac Verified 03/27/22 20:22 Anti-Inflamma Penicillins AdvReac Nausea Verified 03/27/22 20:22 sulfamethoxazole AdvReac Verified 03/27/22 20:22 [From Sulfamethoxazole-Trimethoprim] trimethoprim AdvReac Verified 03/27/22 20:22 [From Sulfamethoxazole-Trimethoprim] all steriods Allergy Uncoded 03/27/22 20:22 Review of Systems Review of Systems ROS Unobtainable: Unobtainable due to medical condition Patient History Medical History Bilateral sensorineural hearing loss Chronic hyponatremia Eczematous dermatitis Essential (primary) hypertension Heart failure with preserved ejection fraction Hypertension Insomnia Mixed hyperlipidemia Paroxysmal atrial fibrillation Sleep apnea Valvular heart disease Surgical History History of lung surgery Family History Mother Congestive heart failure Father Patient killed Social History household members: none lives independently: Yes Smoking Status: Never smoker alcohol intake: never Smoking Status: Never smoker Substance Use Type: does not use Exam Initial Vital Signs Initial Vital Signs: Vital Signs Pulse Rate 88 03/27/22 20:10 Pulse Oximetry 100 03/27/22 20:10 Const General: cooperative, acute distress and ill appearing [facility] Head: normal to inspection and normocephalic Eyes General: Yes appearance normal, both eyes and all related structures Neck Neck: normal visual inspection Chest Chest: normal inspection of the chest Resp Effort & Inspection: labored, respiratory distress, tachypneic and uses accessory muscles Auscultation: diminished lung sounds, rhonchi and wheezes Cardio Rate: regular rate Rhythm: regular rhythm GI Inspection: normal to inspection Palpation: soft, No firm and No tender Skin General: no rashes or lesions noted Neuro General: patient alert, patient awake, tone normal and moves all extremities Extrem General: No edema Psych Appearance: grossly normal and well kempt Course Orders Ordered: ED Orders 03/27/22 20:14 Complete Blood Count AUTO DIFF Stat Comprehensive Metabolic Panel Stat Lactate (Lactic Acid) Stat EKG-12 Lead Stat Measure peak expiratory flow ONCE RT Consult Eval and Treat Now 03/27/22 20:16 NT-proBNP (BNP-Adult 18+) Stat Troponin & CK Cardiac Panel Stat 03/27/22 20:17 COVID19 -Nasal RAPID/Pre-Proc Stat 03/27/22 20:21 XR chest 1V Stat ABG [Arterial Blood Gas] Stat Discontinued Medications Furosemide (Furosemide 100 Mg/10 Ml Vial) 60 mg IV NOW ONE Stop: 03/27/22 20:15 Last Admin: 03/27/22 20:17 Dose: 60 mg Documented by: KEENAN Ipratropium [place] (Ipratropium 0.5 Mg/2.5 Ml Neb) 0.5 mg INH NOW ONE Stop: 03/27/22 20:15 Last Admin: 03/27/22 21:54 Dose: Not Given Documented by: Nitroglycerin (Nitroglycerin Oint 1 Inch/Gm Oint...G.) 0.5 inch TOP NOW ONE Stop: 03/27/22 20:15 Last Admin: 03/27/22 20:17 Dose: 0.5 inch Documented by: KEENAN Vital Signs Vital signs: Vital Signs - 8 hr 03/27/22 20:10 03/27/22 20:15 03/27/22 20:16 Temperature Pulse Rate 88 85 Respiratory Rate 18 Blood Pressure 122/60 125/73 Pulse Oximetry 100 96 03/27/22 20:17 03/27/22 20:18 03/27/22 20:19 Temperature Pulse Rate 84 76 75 Respiratory Rate 18 Blood Pressure 125/73 183/79 H 183/79 H Pulse Oximetry 90 L 99 03/27/22 20:26 03/27/22 20:30 03/27/22 20:40 Temperature 98.4 F Pulse Rate 68 66 Respiratory Rate Blood Pressure 177/75 H 136/62 Pulse Oximetry 99 98 03/27/22 20:50 03/27/22 21:00 03/27/22 21:10 Temperature Pulse Rate 68 65 63 Respiratory Rate Blood Pressure 134/63 114/58 L 122/60 Pulse Oximetry 97 98 98 Medical Decision Making Medical Records Medical records reviewed: Yes I reviewed the patient's medical records. Lab Data Result diagrams: 03/27/22 20:14 03/27/22 20:14 Labs: Lab Results 03/27/22 03/27/22 03/27/22 Range/Units 20:14 20:14 20:14 WBC 10.4 (4.5-11.0) X10^3/uL RBC 4.16 (4.0-5.2) X10^6/uL Hgb 12.9 (12.0-16.0) g/dL Hct 37.2 (36-46) % MCV 89.4 (80-100) fL MCH 31.1 (26-34) PG MCHC 34.8 (30-36) % RDW 13.2 (11.6-14.8) % Plt Count 207 (150-400) X10^3/uL Neut % (Auto) 87.6 H (50-75) % Lymph % (Auto) 4.7 L (25-40) % [place] % (Auto) 7.1 (3-14) % Eos % (Auto) 0.2 L (2-4) % Baso % (Auto) 0.4 (0-2) % Neut # (Auto) 9100 H (8599-3264) /uL Lymph # (Auto) 500 L (2710-0078) /uL [place] # (Auto) 700 (0-900) /uL Eos # (Auto) 0 (0-450) /uL Baso # (Auto) 0 (0-100) /uL ABG pH (7.35-7.45) ABG pCO2 (35-45) mmHg ABG pO2 (80-100) mmHg ABG HCO3 (22-26) mmol/L ABG Total CO2 (21-31) mmol/L ABG O2 Saturation (95-100) % ABG Base Excess (-2-2) mmol/L FiO2 Sodium 123 L (137-145) mmol/L Potassium 5.2 H (3.4-5.1) mmol/L Chloride 87 L (98-107) mmol/L Carbon Dioxide 29 (22-32) mmol/L BUN 28 H (7-17) mg/dL Creatinine 0.73 (0.52-1.04) mg/dL Estimated GFR > 60 (>60) mL/min BUN/Creatinine Ratio 38.4 H (6-22) Glucose 261 H (80-110) mg/dL Lactate 1.3 (0.7-2.1) mmol/L Calcium 9.5 (8.4-10.2) mg/dL Total Bilirubin 1.1 (0.2-1.3) mg/dL AST 41 H (14-36) IU/L ALT 34 (<35) IU/L Alkaline Phosphatase 84 (38-126) U/L Total Creatine Kinase (30-135) U/L CK-MB (CK-2) CK-MB (CK-2) Rel Index Troponin I (0.01-0.034) ng/mL NT-Pro-B Natriuret Pep (<450) pg/mL Total Protein 8.8 H (6.3-8.2) g/dL Albumin 4.6 (3.5-5.0) g/dL Globulin 4.2 H (1.7-4.1) g/dL Albumin/Globulin Ratio 1.1 (1.0-2.8) SARS-CoV-2 (PCR) (Negative) 03/27/22 03/27/22 03/27/22 Range/Units 20:16 20:17 21:00 WBC (4.5-11.0) X10^3/uL RBC (4.0-5.2) X10^6/uL Hgb (12.0-16.0) g/dL Hct (36-46) % MCV (80-100) fL MCH (26-34) PG MCHC (30-36) % RDW (11.6-14.8) % Plt Count (150-400) X10^3/uL Neut % (Auto) (50-75) % Lymph % (Auto) (25-40) % [place] % (Auto) (3-14) % Eos % (Auto) (2-4) % Baso % (Auto) (0-2) % Neut # (Auto) (0407-0346) /uL Lymph # (Auto) (2230-3873) /uL [place] # (Auto) (0-900) /uL Eos # (Auto) (0-450) /uL Baso # (Auto) (0-100) /uL ABG pH 7.38 (7.35-7.45) ABG pCO2 46.1 H (35-45) mmHg ABG pO2 110 H (80-100) mmHg ABG HCO3 27 H (22-26) mmol/L ABG Total CO2 29 (21-31) mmol/L ABG O2 Saturation 98 (95-100) % ABG Base Excess 2.0 (-2-2) mmol/L FiO2 40 Sodium (137-145) mmol/L Potassium (3.4-5.1) mmol/L Chloride (98-107) mmol/L Carbon Dioxide (22-32) mmol/L BUN (7-17) mg/dL Creatinine (0.52-1.04) mg/dL Estimated GFR (>60) mL/min BUN/Creatinine Ratio (6-22) Glucose (80-110) mg/dL Lactate (0.7-2.1) mmol/L Calcium (8.4-10.2) mg/dL Total Bilirubin (0.2-1.3) mg/dL AST (14-36) IU/L ALT (<35) IU/L Alkaline Phosphatase (38-126) U/L Total Creatine Kinase 49 (30-135) U/L CK-MB (CK-2) TNP CK-MB (CK-2) Rel Index TNP Troponin I 0.014 (0.01-0.034) ng/mL NT-Pro-B Natriuret Pep 6400 H (<450) pg/mL Total Protein (6.3-8.2) g/dL Albumin (3.5-5.0) g/dL Globulin (1.7-4.1) g/dL Albumin/Globulin Ratio (1.0-2.8) SARS-CoV-2 (PCR) Negative (Negative) Imaging Data Chest x-ray: Radiologist's Impression: [address] [address] XRay Report Signed Patient: Maame Sanchez I MR#: [id number] : 1940 Acct:[id number] Age/Sex: 81 / F Date of Service: 03/27/22 Loc: ED Accession Number: [id number] ?? Procedure: XR chest 1V Ordering Provider: Ashwin Moreno D.O. PROCEDURE:? XR CHEST 1V ? INDICATIONS:? SOB ? TECHNIQUE:? One view of the chest was acquired.? ? COMPARISON:? [facility], , XR CHEST 1V, 08/25/2021, 14:11. ? FINDINGS: Heart size upper limits of normal. Atherosclerotic vascular calcification noted in the aortic arch.? Moderate vascular congestion present with underlying chronic interstitial changes.? Left-sided pleural effusion with associated with atelectasis and infiltrate.? Osseous structures demineralized. ? IMPRESSION:? ? 1. Cardiomegaly, moderate vascular congestion and left pleural effusion with atelectasis and or infiltrate ? ? ? Approved by: Jacoby Aden M.D. on 03/27/2022 at 19:43 ECG Data Attestation: I personally reviewed and interpreted this ECG as follows: Prior ECG tracings: available for review Interpretation: Sinus rhythm Ventricular rate is 64 Left bundle branch block Unchanged from EKG dated July 2021 MDM Narrative Medical decision making narrative: Patient arrived in respiratory distress with decreased lung sounds and wheezing and rhonchi bilaterally. She was very quickly placed on BiPAP given review of her medical records which showed that she presented very similar to today in July of last year and improved with Lasix and BiPAP. Very shortly after being placed on BiPAP her respiratory status improved. She became less tachypneic. Oxygen saturations greater than 90%. Not tachycardic. She does have a left bundle-branch block this is not new. Her lung sounds improved as well. Chest x-ray shows fluid overload. Has an elevated BNP. She was given Lasix and also nitroglycerin paste. Given her presentation patient does require admission to the hospital for further evaluation and treatment. Discussed case with Dr. Alaniz on-call for Internal Medicine who will admit. Also discussed the need for admission with the patient. She expressed understanding and agreement. Critical Care Time Critical Care Time Critical Care Time: Yes Total Critical Care Time: 40 Attestation: The high probability of a clinically significant, sudden or life threatening deterioration of the respiratory, cardiovascular system(s) required my full and direct attention, intervention and personal management. The aggregate critical care time was [40] minutes. This time is in addition to time spent performing reported procedures but includes the following: [x] Data Review and interpretation [x] Patient assessment and monitoring of vital signs [x] Documentation [x] Medication orders and management Discharge Plan Departure Patient Disposition: Admitted As Inpatient Clinical Impression: Acute respiratory distress, Left bundle branch block, CHF (congestive heart failure), Hyponatremia Admit Date/Time: 03/27/22 21:24 Admit Provider: Mike Alaniz
[2022-03-27] MEDS: FUROSEMIDE 100 MG/10 ML VIAL 60 MG IV (20:17)
[2022-03-27] MEDS: NITROGLYCERIN OINT 1 INCH/GM OINT...G. 0.5 INCH TOP (20:17)
--- NOTE | 2022-03-27 20:19 | PC.NURSE ---
Pt's bra, shirt, purse placed in belongings bag. Life alert necklace put in front pocket of purse.
--- NOTE | 2022-03-27 20:21 | DI.RAD.S_ITS ---
PROCEDURE: XR CHEST 1V INDICATIONS: SOB TECHNIQUE: One view of the chest was acquired. COMPARISON: [facility], CR, XR CHEST 1V, 08/25/2021, 14:11. FINDINGS: Heart size upper limits of normal. Atherosclerotic vascular calcification noted in the aortic arch. Moderate vascular congestion present with underlying chronic interstitial changes. Left-sided pleural effusion with associated with atelectasis and infiltrate. Osseous structures demineralized. IMPRESSION: 1. Cardiomegaly, moderate vascular congestion and left pleural effusion with atelectasis and or infiltrate Approved by: Jacoby Aden M.D. on 03/27/2022 at 19:43
[2022-03-27 20:31] LABS: Add Manual Diff / Slide Review NO; Basophils Absolute Auto 0 /uL (0-100); Basophils Percent Auto 0.4 % (0-2); Eosinophils Absolute Auto 0 /uL (0-450); Eosinophils Percent Auto 0.2 % (2-4); Hematocrit 37.2 % (36-46); Hemoglobin 12.9 g/dL (12.0-16.0); Lymphocytes Absolute Auto 500 /uL (1100-4500); Lymphocytes Percent Auto 4.7 % (25-40); Mean Corpuscular HGB Conc 34.8 % (30-36); Mean Corpuscular Hemoglobin 31.1 PG (26-34); Mean Corpuscular Volume 89.4 fL (80-100); Monocytes Absolute Auto 700 /uL (0-900); Monocytes Percent Auto 7.1 % (3-14); Neutrophils Absolute Auto 9100 /uL (1500-7000); Neutrophils Percent Auto 87.6 % (50-75); Platelet Count 207 X10^3/uL (150-400); Red Blood Cell Count 4.16 X10^6/uL (4.0-5.2); Red Cell Distribution Width 13.2 % (11.6-14.8); White Blood Cell Count 10.4 X10^3/uL (4.5-11.0)
[2022-03-27 20:36] LABS: Creatine Kinase 49 U/L (30-135)
[2022-03-27 20:37] LABS: Alanine Aminotransferase 34 IU/L (<35); Albumin 4.6 g/dL (3.5-5.0); Albumin Globulin Ratio 1.1 (1.0-2.8); Alkaline Phosphatase 84 U/L (38-126); Aspartate Aminotransferase 41 IU/L (14-36); BUN Creatinine Ratio 38.4 (6-22); Bilirubin Total 1.1 mg/dL (0.2-1.3); Blood Urea Nitrogen 28 mg/dL (7-17); Calcium 9.5 mg/dL (8.4-10.2); Carbon Dioxide 29 mmol/L (22-32); Chloride 87 mmol/L (98-107); Estimated Glomerular Filt Rate > 60 mL/min (>60); Globulin 4.2 g/dL (1.7-4.1); Glucose 261 mg/dL (80-110); HEMOLYSIS < 15 (0-50); Potassium 5.2 mmol/L (3.4-5.1); Sodium 123 mmol/L (137-145); Total Protein 8.8 g/dL (6.3-8.2)
[2022-03-27 20:38] LABS: Lactate (Lactic Acid) 1.3 mmol/L (0.7-2.1)
--- NOTE | 2022-03-27 20:40 | PC.NURSE ---
Pt arrives by way of EMS on venturi mask. Respirations are labored. MD Moreno at bedside. Pt is placed on Bipap. History of CHF. Pt reports feeling SOB for the past 5 days increasing in severity today. Current vitals are 79 HR, 136/62, RR 19, 97% at 40% on Bipap. Pt is alert and able to verbalize needs.
[2022-03-27 20:49] LABS: NT-proBNP (BNP-Adult 18+) 6400 pg/mL (<450); Troponin I 0.014 ng/mL (0.01-0.034)
[2022-03-27 20:56] LABS: COVID19 -Nasal RAPID Negative (Negative)
--- NOTE | 2022-03-27 21:17 | PC.NURSE ---
RT unable to obtain ABG. RN obtained right radial. Patient tolerated well. Pressure and dressing applied to right wrist
[2022-03-27 21:27] LABS: Fractionated Inspired Oxygen 40; HCO3 ABG 27 mmol/L (22-26); Oxygen Saturation ABG 98 % (95-100); PCO2 ABG 46.1 mmHg (35-45); TCO2 ABG 29 mmol/L (21-31); pH ABG 7.38 (7.35-7.45)
[2022-03-27 21:28] LABS: PO2 ABG 110 mmHg (80-100)
--- NOTE | 2022-03-27 22:06 | DI.ECHO.S_ITS ---
[facility] +---------+ : : [address] [place] : : : : [id number] : : : : Phone: [phone] Echocardiogram Report + + :Name: VALENTIN HERNANDEZ I Study Date: 03/28/2022 Height: 67 in : :[facility] ReadingLocation: Weight: 151 lb : : Gender: Female BSA: 1.8 m2 : :: 1940 Age: 81 yrs BP: 159/69 mmHg: :Reason For Study: CHF ON EXACERBATION : :Ordering Physician: BELL, : :RAMON Performed By: Yaima Mead : :Referring: RAMON LUU : + + Interpretation Summary The left ventricle is normal in size. Left ventricular systolic function appears normal without focal wall motion abnormalities. The ejection fraction is estimated to be 60-65%. LVEF has not changed. Diastolic function could not be accurately assessed due to confounding valvular disease. The right ventricle is mildly dilated. The right ventricular systolic function is normal. The left atrium is severely dilated. The right atrium is mildly dilated. The mitral valve leaflets are moderately calcified. There is moderate mitral annular calcification. There is mild to moderate mitral stenosis. The mitral valve mean gradient is 5.7 mmHg. There is mild mitral regurgitation. The aortic valve is moderately calcified. There is mild to moderate aortic stenosis. The peak aortic velocity is 3.17 m/sec. The calculated aortic valve area is 1.5 cm2. There is moderate to severe aortic regurgitation. Compared to the prior echo study, there has been no change in the severity of aortic regurgitation. There is mild to moderate tricuspid regurgitation. The aortic root is normal size. Procedure: A two-dimensional transthoracic echocardiogram with color flow and Doppler was performed. The study quality was technically adequate. Comparison is made with the echocardiogram of 04/29/2021. The patient was in sinus rhythm with heart rates between 84-86 bpm during the exam. Left Ventricle: The left ventricle is normal in size. Left ventricular wall thickness is mildly increased. Left ventricular systolic function appears normal without focal wall motion abnormalities. The ejection fraction is estimated to be 60-65%. Diastolic function could not be accurately assessed due to confounding valvular disease. Right Ventricle: The right ventricle is mildly dilated. The right ventricular systolic function is normal. Atria: The left atrium is severely dilated. The right atrium is mildly dilated. There is no Doppler evidence for an interatrial shunt. Mitral Valve: The mitral valve leaflets are moderately calcified. There is moderate mitral annular calcification. There is mild to moderate mitral stenosis. The mitral valve mean gradient is 5.7 mmHg. There is mild mitral regurgitation. Aortic Valve: The aortic valve is moderately calcified. The aortic valve is trileaflet. There is mild to moderate aortic stenosis. The peak aortic velocity is 3.17 m/sec. The aortic valve mean gradient is 24 mmHg. The calculated aortic valve area is 1.5 cm2. There is moderate to severe aortic regurgitation. Compared to the prior echo study, there has been no change in the severity of aortic regurgitation. Tricuspid Valve: The tricuspid valve is normal in structure and function. There is mild to moderate tricuspid regurgitation. Pulmonic Valve: The pulmonic valve is not well seen, but is grossly normal. Great Vessels: The aortic root is normal size. The ascending aorta is normal in size. The IVC is of normal diameter and collapses greater than 50% with a sniff. This suggests a low right atrial pressure of 3 mm Hg. Pericardium/ Pleura There is no pericardial effusion. There is no pleural effusion. MMode/2D Measurements & Calculations LVIDd: 5.4 cm LVOT diam: 2.2 cm LVIDs: 3.7 cm Ao root diam: 3.2 cm FS: 31.9 % asc Aorta Diam: 3.6 cm IVSd: 1.0 cm Ao Arch Diam (Prox Trans): 3.0 cm LVPWd: 1.0 cm LV green. diameter/BSA (cm/m^2): 3.0 LV sys. diameter/BSA (cm/m^2): 2.0 LA A2 area: 38.1 cm2 RA long axis: 6.0 cm LA A4 area: 26.7 cm2 RA area: 22.2 cm2 LA length (vol): 6.9 cm RA vol: 70.0 ml LA vol: 125.1 ml RA : 39.0 ml/m2 LA vol index: 69.7 ml/m2 IVC diam: 1.9 cm RVD1 (basal): 4.4 cm RVD2 (mid): 4.0 cm TAPSE: 2.4 cm Doppler Measurements & Calculations Ao V2 max: 317.4 cm/sec LVOT Max Chong: 126.1 cm/sec Ao V2 mean: 239.0 cm/sec LV V1 max P.4 mmHg Ao max P.3 mmHg LV V1 VTI: 25.0 cm Ao mean P.7 mmHg ALON(I,D): 1.5 cm2 Ao V2 VTI: 64.9 cm ALON(V,D): 1.5 cm2 sev ratio: 0.39 ALON indexed to BSA (cm^2/m^2): 0.82 AI P1/2t: 364.5 msec AI dec slope: 347.6 cm/sec2 Med Peak E' Chong: 7.8 cm/sec TR max chong: 326.8 cm/sec Lat Peak E' Chong: 8.7 cm/sec TR max P.5 mmHg MVA(VTI): 2.2 cm2 PA V2 max: 122.3 cm/sec PA V2 mean: 72.5 cm/sec PA mean P.5 mmHg MV V2 mean: 107.2 cm/sec SV(LVOT): 95.9 ml MV mean P.7 mmHg MV V2 VTI: 44.3 cm Reading Physician:05:13 PM
--- NOTE | 2022-03-27 22:18 | P.HP_ITS ---
History of Present Illness History of Present Illness Date Patient Seen: 03/27/22 Time Patient Seen: 22:00 Chief complaint: Resp distress Narrative: Ms. Sanchez is an 81W with PMH CHFpEF, aortic regurgitation, chronic hyponatremia, HTN, atrial fibrillation who presents with shortness of breath. She also notes previous tracheal surgery for carcinoid, and says she can not be intubated and is a DNR. She also has a possible asthma history. She has a known history of CHF for which she was last admitted here at the end of 2020. She has been previously prescribed lasix, isosorbide, and hydralazine, presumably for her CHF. However, she believes these caused her symptoms, and these medications were stopped in December/January of 2022. She has noted slight weight gain, lower extremity swelling at her ankles. Over the last week she has noted worsening shortness of breath, worse with exertion and lying flat. No cough, fevers, or chest pain. Her breathing became very severe today, she was found to by neighbors diaphoretic and short of breath. EMS was called and noted sat in the 70s, she was given a nebulizer, as she had documented history of asthma. In the ED workup was done, she was immediately placed on BIPAP. Vitals notable for afebrile, hr in 80s, blood pressure systolic 170s-180s. Labs notable for WBC 10.4. Na 123, creatinine 0.73. Lactate 1.3. Trop 0.014, BNP 6400. COVID negative. ABG with ph 7.38, pco2 46, pao2 110. Chest xray showed cardiomegaly, moderate vascular congestion and left pleural effusion with atelectasis vs infiltrate. She was ordered for lasix. She felt much better once on BIPAP. Family history: Mother, brother CAD/VA Patient History Medical History Bilateral sensorineural hearing loss Chronic hyponatremia Eczematous dermatitis Essential (primary) hypertension Heart failure with preserved ejection fraction Hypertension Insomnia Mixed hyperlipidemia Paroxysmal atrial fibrillation Sleep apnea Valvular heart disease Surgical History History of lung surgery Family & Social History Family History Mother Congestive heart failure Father Patient killed Social History: household members none lives independently Yes Safety & Behavioral: Feels Safe in Current Yes Environment Been Physically Hurt or No Threatened By a Person Tobacco & Substance use: Smoking Status Never smoker alcohol intake never Substance Use Type does not use Meds Home Medications and Allergies Home Medications Medication Instructions Recorded Confirmed Type simvastatin 5 mg tablet 5 mg PO BEDTIME 04/28/21 03/27/22 History acetaminophen 325 mg capsule 325 mg PO ONCE PRN 02/23/22 03/27/22 History amlodipine 2.5 mg tablet 5 mg PO BEDTIME tab 02/23/22 03/27/22 History cholecalciferol (vitamin D3) 25 25 mcg PO QNOON 02/23/22 03/27/22 History mcg (1,000 unit) capsule magnesium oxide 400 mg PO DAILY 02/23/22 03/27/22 History vitamin K2 100 mcg capsule 100 mcg PO DAILY 02/23/22 03/27/22 History apixaban 2.5 mg tablet 2.5 mg PO BID #180 tab 03/11/22 03/27/22 Rx fluticasone propionate 50 1 spray INTRANASAL DAILY 03/27/22 03/27/22 History mcg/actuation nasal spray,suspension nadolol 40 mg tablet 40 mg PO BEDTIME 03/27/22 03/27/22 History Allergies Allergy/AdvReac Type Severity Reaction Status Date / Time acetaminophen Allergy Verified 03/27/22 20:22 calcium carbonate Allergy Verified 03/27/22 20:22 [From Excedrin Back and Body] ergotamine Allergy Verified 03/27/22 20:22 Sulfa (Sulfonamide Allergy Verified 03/27/22 20:22 Antibiotics) prednisolone acetate, AdvReac Mild Weakness Verified 03/27/22 20:22 micronized aspirin AdvReac Verified 03/27/22 20:22 [From Excedrin Back and Body] clindamycin AdvReac Verified 03/27/22 20:22 ferrous sulfate AdvReac Verified 03/27/22 20:22 guaifenesin AdvReac Verified 03/27/22 20:22 NSAIDS (Non-Steroidal AdvReac Verified 03/27/22 20:22 Anti-Inflamma Penicillins AdvReac Nausea Verified 03/27/22 20:22 sulfamethoxazole AdvReac Verified 03/27/22 20:22 [From Sulfamethoxazole-Trimethoprim] trimethoprim AdvReac Verified 03/27/22 20:22 [From Sulfamethoxazole-Trimethoprim] all steriods Allergy Uncoded 03/27/22 20:22 Review of Systems Review of Systems Narrative: 14 systems reviewed and negative aside from what is noted in HPI Exam Vital Signs (past 8 hours): - 03/27/22 20:10 03/27/22 20:15 03/27/22 20:16 Temperature Pulse Rate 88 85 Respiratory Rate 18 Blood Pressure 122/60 125/73 Pulse Oximetry 100 96 03/27/22 20:17 03/27/22 20:18 03/27/22 20:19 Temperature Pulse Rate 84 76 75 Respiratory Rate 18 Blood Pressure 125/73 183/79 H 183/79 H Pulse Oximetry 90 L 99 03/27/22 20:26 03/27/22 20:30 03/27/22 20:40 Temperature 98.4 F Pulse Rate 68 66 Respiratory Rate Blood Pressure 177/75 H 136/62 Pulse Oximetry 99 98 03/27/22 20:50 03/27/22 21:00 03/27/22 21:10 Temperature Pulse Rate 68 65 63 Respiratory Rate Blood Pressure 134/63 114/58 L 122/60 Pulse Oximetry 97 98 98 03/27/22 21:21 03/27/22 21:30 03/27/22 21:40 Temperature Pulse Rate 76 73 62 Respiratory Rate Blood Pressure 106/59 L 106/55 L 117/56 L Pulse Oximetry 94 95 95 03/27/22 21:50 03/27/22 22:00 Temperature Pulse Rate 62 130 H Respiratory Rate Blood Pressure 118/58 L 129/61 Pulse Oximetry 95 95 Fraction of Inspired Oxygen 30 Oxygen Delivery Method BiPAP Narrative Exam Narrative: GEN: mild respiratory distress HEENT: moist mucous membranes, PERRL NECK: trachea midline, no JVD CV: regular rate and rhythm, no murmurs PULM: crackles bilaterally ABD: soft, nontender, nondistended, no organomegaly, normal bowel sounds EXT: warm and well perfused, trace edema at ankles NEURO: awake, alert, no focal deficits, hard of hearing Objective Labs Result Diagrams: 03/28/22 04:57 03/28/22 04:57 Labs: Laboratory Results - last 24 hr 03/27/22 03/27/22 03/27/22 20:14 20:14 20:14 WBC 10.4 RBC 4.16 Hgb 12.9 Hct 37.2 MCV 89.4 MCH 31.1 MCHC 34.8 RDW 13.2 Plt Count 207 Neut % (Auto) 87.6 H Lymph % (Auto) 4.7 L [place] % (Auto) 7.1 Eos % (Auto) 0.2 L Baso % (Auto) 0.4 Neut # (Auto) 9100 H Lymph # (Auto) 500 L [place] # (Auto) 700 Eos # (Auto) 0 Baso # (Auto) 0 ABG pH ABG pCO2 ABG pO2 ABG HCO3 ABG Total CO2 ABG O2 Saturation ABG Base Excess FiO2 Sodium 123 L Potassium 5.2 H Chloride 87 L Carbon Dioxide 29 BUN 28 H Creatinine 0.73 Estimated GFR > 60 BUN/Creatinine Ratio 38.4 H Glucose 261 H Lactate 1.3 Calcium 9.5 Total Bilirubin 1.1 AST 41 H ALT 34 Alkaline Phosphatase 84 Total Creatine Kinase CK-MB (CK-2) CK-MB (CK-2) Rel Index Troponin I NT-Pro-B Natriuret Pep Total Protein 8.8 H Albumin 4.6 Globulin 4.2 H Albumin/Globulin Ratio 1.1 SARS-CoV-2 (PCR) 03/27/22 03/27/22 03/27/22 20:16 20:17 21:00 WBC RBC Hgb Hct MCV MCH MCHC RDW Plt Count Neut % (Auto) Lymph % (Auto) [place] % (Auto) Eos % (Auto) Baso % (Auto) Neut # (Auto) Lymph # (Auto) [place] # (Auto) Eos # (Auto) Baso # (Auto) ABG pH 7.38 ABG pCO2 46.1 H ABG pO2 110 H ABG HCO3 27 H ABG Total CO2 29 ABG O2 Saturation 98 ABG Base Excess 2.0 FiO2 40 Sodium Potassium Chloride Carbon Dioxide BUN Creatinine Estimated GFR BUN/Creatinine Ratio Glucose Lactate Calcium Total Bilirubin AST ALT Alkaline Phosphatase Total Creatine Kinase 49 CK-MB (CK-2) TNP CK-MB (CK-2) Rel Index TNP Troponin I 0.014 NT-Pro-B Natriuret Pep 6400 H Total Protein Albumin Globulin Albumin/Globulin Ratio SARS-CoV-2 (PCR) Negative Assessment & Plan Assessment & Plan narrative: Ms. Sanchez is an 81W with PMH CHFpEF, afib, HTN, hyponatremia who presents with short of breath. 1. Acute on chronic CHFpEF exacerbation, acute hypoxemic respiratory failure -likely secondary to stopping lasix recently -reported history of asthma, but patient not wheezing, doubt this as cause -BNP elevated, with chest xray consistent with acute CHF with pulmonary edema and pleural effusion -troponin negative, no chest pain, EKG shows old LBBB -bumex ordered -low salt diet, fluid restriction, daily weight -ECHO ordered -recheck one more troponin to rule out acs 2. Atrial fibrillation, chronic -continue home meds, apixaban, nadolol 3. Hypertension -continue amlodipine 4. Acute on chronic hyponatremia -suspect worsened in the setting of volume overload -etiology of hyponatremia is not documented, but possible compoment of siadh -already received IV diuretics in ED 5. Sleep apnea -on bipap tonight, but does use cpap at home CODE DNR Proxy: Lisset Thomas, friend I have utilized all available resources to reconcile the patient's home medications. Time Spent With Patient Critical Care time: I spent a total of [35] minutes of critical care time on this patient's care today; this time is exclusive of procedural time. Quality MIPS - Admit I confirm the patient?s Advance Care Plan is present, Code status is documented, Surrogate decision maker is in patient?s record [If Yes, STOP here]: Yes
[2022-03-28] VITALS (15 sets, daily range): BP systolic 115–178; BP diastolic 57–78; PULSE 58–87; RESP 13–44; TEMP 36.9–37.8; O2SAT 90–100
--- NOTE | 2022-03-28 00:47 | PM.CN.EICU ---
History of Present Illness Consult details Chief complaint: Resp distress Reason for consult: ICU admission Patient Location: ICU Provider location (State): [place] Narrative: 81 y.o. female w/ PMHx of HFpEF, aortic regurgitation, and AF who presented with dyspnea, LE edema, orthopnea and decreased activity tolerance. She was in severe respiratory distress and was placed on NIPPV in ED; also given Lasix 60 mg, ipratropium 0.5 mg and 0.5 inch NTBP. ABG was 7.38/46/110/27/98%. Troponin I was (-) but BNP was 6400. Lactate was normal. pCXR showed PVC. She was admitted to ICU for HFpEF exacerbation. [facility] Medical History Bilateral sensorineural hearing loss Chronic hyponatremia Eczematous dermatitis Essential (primary) hypertension Heart failure with preserved ejection fraction Hypertension Insomnia Mixed hyperlipidemia Paroxysmal atrial fibrillation Sleep apnea Valvular heart disease Surgical History History of lung surgery Family History Mother Congestive heart failure Father Patient killed Social History household members: none lives independently: Yes Smoking Status: Never smoker alcohol intake: never Current Medications Current Medications Medications: Home Medications simvastatin 5 mg tablet 5 mg PO BEDTIME 04/28/21 [History Confirmed 03/27/22] acetaminophen 325 mg capsule 325 mg PO ONCE PRN 02/23/22 [History Confirmed 03/27/22] amlodipine 2.5 mg tablet 5 mg PO BEDTIME tab 02/23/22 [History Confirmed 03/27/22] cholecalciferol (vitamin D3) 25 mcg (1,000 unit) capsule 25 mcg PO QNOON 02/23/22 [History Confirmed 03/27/22] magnesium oxide 400 mg PO DAILY 02/23/22 [History Confirmed 03/27/22] vitamin K2 100 mcg capsule 100 mcg PO DAILY 02/23/22 [History Confirmed 03/27/22] apixaban 2.5 mg tablet 2.5 mg PO BID #180 tab 03/11/22 [Rx Confirmed 03/27/22] fluticasone propionate 50 mcg/actuation nasal spray,suspension 1 spray INTRANASAL DAILY 03/27/22 [History Confirmed 03/27/22] nadolol 40 mg tablet 40 mg PO BEDTIME 03/27/22 [History Confirmed 03/27/22] Review of Systems Review of Systems Narrative: not performed as patient was sleeping Exam Vital Signs (past 8 hours): - 03/27/22 20:10 03/27/22 20:15 03/27/22 20:16 Temperature Pulse Rate 88 85 Respiratory Rate 18 Blood Pressure 122/60 125/73 Pulse Oximetry 100 96 03/27/22 20:17 03/27/22 20:18 03/27/22 20:19 Temperature Pulse Rate 84 76 75 Respiratory Rate 18 Blood Pressure 125/73 183/79 H 183/79 H Pulse Oximetry 90 L 99 03/27/22 20:26 03/27/22 20:30 03/27/22 20:40 Temperature 98.4 F Pulse Rate 68 66 Respiratory Rate Blood Pressure 177/75 H 136/62 Pulse Oximetry 99 98 03/27/22 20:50 03/27/22 21:00 03/27/22 21:10 Temperature Pulse Rate 68 65 63 Respiratory Rate Blood Pressure 134/63 114/58 L 122/60 Pulse Oximetry 97 98 98 03/27/22 21:21 03/27/22 21:30 03/27/22 21:40 Temperature Pulse Rate 76 73 62 Respiratory Rate Blood Pressure 106/59 L 106/55 L 117/56 L Pulse Oximetry 94 95 95 03/27/22 21:50 03/27/22 22:00 03/27/22 22:26 Temperature Pulse Rate 62 130 H 58 L Respiratory Rate 22 Blood Pressure 118/58 L 129/61 121/56 L Pulse Oximetry 95 95 98 03/27/22 23:00 03/28/22 00:01 Temperature Pulse Rate 61 79 Respiratory Rate 36 H 44 H Blood Pressure 106/80 144/69 H Pulse Oximetry 95 95 Fraction of Inspired Oxygen 30 Oxygen Delivery Method BiPAP Resp Effort & Inspection: normal respiratory effort (on 2L NC O2) Cardio Rate: regular rate Objective Labs Result Diagrams: 03/27/22 20:14 03/27/22 20:14 Labs: Laboratory Results - last 24 hr 03/27/22 03/27/22 03/27/22 20:14 20:14 20:14 WBC 10.4 RBC 4.16 Hgb 12.9 Hct 37.2 MCV 89.4 MCH 31.1 MCHC 34.8 RDW 13.2 Plt Count 207 Neut % (Auto) 87.6 H Lymph % (Auto) 4.7 L [place] % (Auto) 7.1 Eos % (Auto) 0.2 L Baso % (Auto) 0.4 Neut # (Auto) 9100 H Lymph # (Auto) 500 L [place] # (Auto) 700 Eos # (Auto) 0 Baso # (Auto) 0 ABG pH ABG pCO2 ABG pO2 ABG HCO3 ABG Total CO2 ABG O2 Saturation ABG Base Excess FiO2 Sodium 123 L Potassium 5.2 H Chloride 87 L Carbon Dioxide 29 BUN 28 H Creatinine 0.73 Estimated GFR > 60 BUN/Creatinine Ratio 38.4 H Glucose 261 H Lactate 1.3 Calcium 9.5 Total Bilirubin 1.1 AST 41 H ALT 34 Alkaline Phosphatase 84 Total Creatine Kinase CK-MB (CK-2) CK-MB (CK-2) Rel Index Troponin I NT-Pro-B Natriuret Pep Total Protein 8.8 H Albumin 4.6 Globulin 4.2 H Albumin/Globulin Ratio 1.1 SARS-CoV-2 (PCR) 03/27/22 03/27/22 03/27/22 20:16 20:17 21:00 WBC RBC Hgb Hct MCV MCH MCHC RDW Plt Count Neut % (Auto) Lymph % (Auto) [place] % (Auto) Eos % (Auto) Baso % (Auto) Neut # (Auto) Lymph # (Auto) [place] # (Auto) Eos # (Auto) Baso # (Auto) ABG pH 7.38 ABG pCO2 46.1 H ABG pO2 110 H ABG HCO3 27 H ABG Total CO2 29 ABG O2 Saturation 98 ABG Base Excess 2.0 FiO2 40 Sodium Potassium Chloride Carbon Dioxide BUN Creatinine Estimated GFR BUN/Creatinine Ratio Glucose Lactate Calcium Total Bilirubin AST ALT Alkaline Phosphatase Total Creatine Kinase 49 CK-MB (CK-2) TNP CK-MB (CK-2) Rel Index TNP Troponin I 0.014 NT-Pro-B Natriuret Pep 6400 H Total Protein Albumin Globulin Albumin/Globulin Ratio SARS-CoV-2 (PCR) Negative Assessment & Plan Assessment and plan (1) Acute heart failure with preserved ejection fraction (HFpEF): Status: Acute Plan: -PRN NIPPV -Continue diuresis -Echo [place] -If remains on nasal cannnula O2, can be downgraded during 5/30 day shift (2) Paroxysmal atrial fibrillation: Status: Acute Plan: -Continue apixaban (3) Chronic hyponatremia: Problem details: 129-low 130's Status: Acute Plan: -Trend (4) Hyperglycemia: Status: Acute Plan: -Trend
--- NOTE | 2022-03-28 01:18 | PC.NURSE ---
Admit Note-Patient brought to ICU room 226 at 2215. A/Ox4, very [place] despite hearing aids, using paper and pen to communicate, friend and POA also in room. Bi-pap on initially FIO2 .30, 18/6, RR 18, SpO2 97-99%, denies dyspnea, coarse crackles auscultated on left, slightly coarse on right. SR, 1st degree AVB, LBBB, VSS, nitro paste on chest, denies pain. Incontinent small void, PureWick system placed to sx. At 2300, patient was placed on 3L NC so she could have a snack, SpO2 remained >95%, did have brief tachypnea to 30 while conversing, still denied shortness of breath. Gali sent with DPOA. Echo ordered for tomorrow.
[2022-03-28 05:14] LABS: Add Manual Diff / Slide Review NO; Basophils Absolute Auto 100 /uL (0-100); Basophils Percent Auto 0.6 % (0-2); Eosinophils Absolute Auto 0 /uL (0-450); Eosinophils Percent Auto 0.1 % (2-4); Hematocrit 32.1 % (36-46); Hemoglobin 11.1 g/dL (12.0-16.0); Lymphocytes Absolute Auto 500 /uL (1100-4500); Lymphocytes Percent Auto 6.3 % (25-40); Mean Corpuscular HGB Conc 34.6 % (30-36); Mean Corpuscular Hemoglobin 30.4 PG (26-34); Mean Corpuscular Volume 87.9 fL (80-100); Monocytes Absolute Auto 1000 /uL (0-900); Monocytes Percent Auto 11.7 % (3-14); Neutrophils Absolute Auto 7000 /uL (1500-7000); Neutrophils Percent Auto 81.3 % (50-75); Platelet Count 166 X10^3/uL (150-400); Red Blood Cell Count 3.65 X10^6/uL (4.0-5.2); Red Cell Distribution Width 13.4 % (11.6-14.8); White Blood Cell Count 8.6 X10^3/uL (4.5-11.0)
[2022-03-28 05:23] LABS: Blood Urea Nitrogen 28 mg/dL (7-17); Carbon Dioxide 30 mmol/L (22-32); Chloride 89 mmol/L (98-107); Estimated Glomerular Filt Rate > 60 mL/min (>60); Glucose 115 mg/dL (80-110); HEMOLYSIS < 15 (0-50); Potassium 4.2 mmol/L (3.4-5.1); Sodium 124 mmol/L (137-145)
[2022-03-28] MEDS: APIXABAN 5 MG TABLET 2.5 MG PO (08:37)
[2022-03-28] MEDS: BUMETANIDE 1 MG/4 ML VIAL IV (08:38)
[2022-03-28] MEDS: SODIUM CHLORIDE 0.9% FLUSH 10 ML IV (08:39)
[2022-03-28] MEDS: FAMOTIDINE 20 MG TABLET PO (08:39)
--- NOTE | 2022-03-28 08:54 | PM.PN.EICU ---
Subjective Subjective Interval history: Patient Summary: 81 y.o. female w/ PMHx of HFpEF, aortic regurgitation,chronic hyponatremia, and paroxysmal AF admitted with respiratory failure secondary to CHF exacerbation. Pt.placed on NIPPV in ER but. improved with diuresis and came off NIPPV by 1 am. Recent Events: -patient ruled in for NSTEMI (trop 3) -patient remains off NIPPV, breathing comfortably on 2L nc -patient is 600 cc net neg so far -BP elevated at 150s/60s despite nitropaste Current Medications Current Medications Medications: Home Medications simvastatin 5 mg tablet 5 mg PO BEDTIME 04/28/21 [History Confirmed 03/27/22] acetaminophen 325 mg capsule 325 mg PO ONCE PRN 02/23/22 [History Confirmed 03/27/22] amlodipine 2.5 mg tablet 5 mg PO BEDTIME tab 02/23/22 [History Confirmed 03/27/22] cholecalciferol (vitamin D3) 25 mcg (1,000 unit) capsule 25 mcg PO QNOON 02/23/22 [History Confirmed 03/27/22] magnesium oxide 400 mg PO DAILY 02/23/22 [History Confirmed 03/27/22] vitamin K2 100 mcg capsule 100 mcg PO DAILY 02/23/22 [History Confirmed 03/27/22] apixaban 2.5 mg tablet 2.5 mg PO BID #180 tab 03/11/22 [Rx Confirmed 03/27/22] fluticasone propionate 50 mcg/actuation nasal spray,suspension 1 spray INTRANASAL DAILY 03/27/22 [History Confirmed 03/27/22] nadolol 40 mg tablet 40 mg PO BEDTIME 03/27/22 [History Confirmed 03/27/22] Visit Medications (administered) Generic Name Dose Route Start Last Admin Trade Name Freq PRN Reason Stop Dose Admin Apixaban 2.5 mg 03/28/22 09:00 03/28/22 08:37 Apixaban 5 Mg Tablet PO 2.5 mg BID CHELO Administration Bumetanide 1 mg 03/28/22 09:00 03/28/22 08:38 Bumetanide 1 Mg/4 Ml Vial IV 1 mg BID CHELO Administration Clopidogrel Bisulfate 75 mg 03/28/22 09:00 03/28/22 08:44 Clopidogrel 75 Mg Tablet PO 75 mg DAILY CHELO Administration Famotidine 20 mg 03/28/22 09:00 03/28/22 08:39 Famotidine 20 Mg Tablet PO 20 mg BID CHELO Administration Sodium Chloride 10 ml 03/28/22 09:00 03/28/22 08:39 Sodium Chloride 0.9% Flush IV 10 ml BID CHELO Administration Objective Labs Result Diagrams: 03/28/22 04:57 03/28/22 04:57 Labs: Laboratory Results - last 24 hr 03/27/22 03/27/22 03/27/22 20:14 20:14 20:14 WBC 10.4 RBC 4.16 Hgb 12.9 Hct 37.2 MCV 89.4 MCH 31.1 MCHC 34.8 RDW 13.2 Plt Count 207 Neut % (Auto) 87.6 H Lymph % (Auto) 4.7 L [place] % (Auto) 7.1 Eos % (Auto) 0.2 L Baso % (Auto) 0.4 Neut # (Auto) 9100 H Lymph # (Auto) 500 L [place] # (Auto) 700 Eos # (Auto) 0 Baso # (Auto) 0 ABG pH ABG pCO2 ABG pO2 ABG HCO3 ABG Total CO2 ABG O2 Saturation ABG Base Excess FiO2 Sodium 123 L Potassium 5.2 H Chloride 87 L Carbon Dioxide 29 BUN 28 H Creatinine 0.73 Estimated GFR > 60 BUN/Creatinine Ratio 38.4 H Glucose 261 H Lactate 1.3 Calcium 9.5 Total Bilirubin 1.1 AST 41 H ALT 34 Alkaline Phosphatase 84 Total Creatine Kinase CK-MB (CK-2) CK-MB (CK-2) Rel Index Troponin I NT-Pro-B Natriuret Pep Total Protein 8.8 H Albumin 4.6 Globulin 4.2 H Albumin/Globulin Ratio 1.1 Nasal Screen MRSA (PCR) SARS-CoV-2 (PCR) 03/27/22 03/27/22 03/27/22 20:16 20:17 21:00 WBC RBC Hgb Hct MCV MCH MCHC RDW Plt Count Neut % (Auto) Lymph % (Auto) [place] % (Auto) Eos % (Auto) Baso % (Auto) Neut # (Auto) Lymph # (Auto) [place] # (Auto) Eos # (Auto) Baso # (Auto) ABG pH 7.38 ABG pCO2 46.1 H ABG pO2 110 H ABG HCO3 27 H ABG Total CO2 29 ABG O2 Saturation 98 ABG Base Excess 2.0 FiO2 40 Sodium Potassium Chloride Carbon Dioxide BUN Creatinine Estimated GFR BUN/Creatinine Ratio Glucose Lactate Calcium Total Bilirubin AST ALT Alkaline Phosphatase Total Creatine Kinase 49 CK-MB (CK-2) TNP CK-MB (CK-2) Rel Index TNP Troponin I 0.014 NT-Pro-B Natriuret Pep 6400 H Total Protein Albumin Globulin Albumin/Globulin Ratio Nasal Screen MRSA (PCR) SARS-CoV-2 (PCR) Negative 03/27/22 03/28/22 03/28/22 21:00 04:51 04:57 WBC 8.6 RBC 3.65 L Hgb 11.1 L Hct 32.1 L MCV 87.9 MCH 30.4 MCHC 34.6 RDW 13.4 Plt Count 166 Neut % (Auto) 81.3 H Lymph % (Auto) 6.3 L [place] % (Auto) 11.7 Eos % (Auto) 0.1 L Baso % (Auto) 0.6 Neut # (Auto) 7000 Lymph # (Auto) 500 L [place] # (Auto) 1000 H Eos # (Auto) 0 Baso # (Auto) 100 ABG pH ABG pCO2 ABG pO2 ABG HCO3 ABG Total CO2 ABG O2 Saturation ABG Base Excess FiO2 Sodium Potassium Chloride Carbon Dioxide BUN Creatinine Estimated GFR BUN/Creatinine Ratio Glucose Lactate Calcium Total Bilirubin AST ALT Alkaline Phosphatase Total Creatine Kinase CK-MB (CK-2) CK-MB (CK-2) Rel Index Troponin I 3.610 H* NT-Pro-B Natriuret Pep Total Protein Albumin Globulin Albumin/Globulin Ratio Nasal Screen MRSA (PCR) Negative for mrsa SARS-CoV-2 (PCR) 03/28/22 04:57 WBC RBC Hgb Hct MCV MCH MCHC RDW Plt Count Neut % (Auto) Lymph % (Auto) [place] % (Auto) Eos % (Auto) Baso % (Auto) Neut # (Auto) Lymph # (Auto) [place] # (Auto) Eos # (Auto) Baso # (Auto) ABG pH ABG pCO2 ABG pO2 ABG HCO3 ABG Total CO2 ABG O2 Saturation ABG Base Excess FiO2 Sodium 124 L Potassium 4.2 Chloride 89 L Carbon Dioxide 30 BUN 28 H Creatinine 0.80 Estimated GFR > 60 BUN/Creatinine Ratio 35.0 H Glucose 115 H D Lactate Calcium 9.0 Total Bilirubin AST ALT Alkaline Phosphatase Total Creatine Kinase CK-MB (CK-2) CK-MB (CK-2) Rel Index Troponin I NT-Pro-B Natriuret Pep Total Protein Albumin Globulin Albumin/Globulin Ratio Nasal Screen MRSA (PCR) SARS-CoV-2 (PCR) Exam Vital Signs (past 8 hours): - 03/28/22 01:00 03/28/22 02:00 03/28/22 03:00 Temperature 98.4 F Pulse Rate 79 78 58 L Respiratory Rate 17 14 13 Blood Pressure 127/62 129/61 115/57 L Pulse Oximetry 97 97 98 03/28/22 04:00 03/28/22 05:00 03/28/22 06:00 Temperature Pulse Rate 75 79 76 Respiratory Rate 16 27 H 15 Blood Pressure 151/68 H 163/72 H 152/65 H Pulse Oximetry 99 97 100 03/28/22 07:00 03/28/22 07:35 03/28/22 07:36 Temperature 100.1 F H Pulse Rate 76 76 Respiratory Rate 14 14 Blood Pressure 161/71 H Pulse Oximetry 98 98 92 03/28/22 07:43 03/28/22 08:00 Temperature 100.1 F H Pulse Rate 67 65 Respiratory Rate 29 H 34 H Blood Pressure 159/69 H 159/69 H Pulse Oximetry 90 L 91 Fraction of Inspired Oxygen 30 Oxygen Delivery Method Room Air Oxygen Flow Rate 2 Narrative Exam Narrative: patient seen sitting up in bed, breathing comfortably on 2L nc Quality TeleICU VTE Deep Vein Thrombosis/Pulmonary Embolism Present on Admission: No Assessment & Plan Assessment & Plan narrative: Assessment Acute Respiratory failure HFpEF CHF exacerbation NSTEMI Aortic Regurgitation paroxysmal Afib Hyponatremia Plan NSTEMI- if patient consents, patient will be transferred to another hospital for cardiac cath -if patient is to undergo cardiac cath, consider switching from Eliquis to Lovenox or heparin drip -continue statin and plavix -consider aspirin if she is not truly allergic to aspirin -B-zay held off for now given patient's HR in 50-60s at times CHF exacerbation-continue diuresis, replace electrolytes as needed Hyponatremia- hopefully it will improve with diuresis Paroxysmal Afib- currently in NSR with HR in 50-70s CCT spent 45 min Time Spent With Patient Critical Care time: I spent a total of [] minutes of critical care time on this patient's care today; this time is exclusive of procedural time.
--- NOTE | 2022-03-28 09:03 | CM.DANOTE ---
DCP: Case received, EMR reviewed and met with patient. Introduced self and role. Was able to obtain information regarding patient's baseline activity status prior to hospitalization, as well as her current living situation. DCP assessment completed with information currently available. Patient is an 81 year old female who admitted yesterday evening to the care of the hospitalist team. PCP: Dr. Pizarro. Payer: confirmed: [facility]. Patient came to the hospital via ambulance secondary to appearing pale and diaphoretic, when her friends went to check on her. When EMS arrived, she was noted to be tachypneic and in respiratory distress. Her sats were in the 70s. Patient has history of paroxysmal atrial fibrillation. Patient was diagnosed with acute on chronic CHF-pEF exacerbation, acute hypoxemic respiratory failure. There is possibility that patient will be transfered to higher level hospital for NSTEMI. Met with patient in her room. She is alert and oriented, hard of hearing. Confirmed that she resides here in [place]. She indicated that she is independent at her baseline. She has friends, she stated, her friends, Lisset and Edilia are her POAs. Patient has used [facility] in the past, and home health as well. P: DCP to continue to check in for needs. Patient may be transferred to higher level hospital upon bed availability. Cary Ogden RN/Wet End Helper Discharge Planning/Care Management CM Discharge Assessment Start: 03/28/22 09:00 Freq: Status: Active Protocol: Document 03/28/22 09:01 (Rec: 03/28/22 09:03 [id number]) Discharge Planning Assessment Assigned Vegetable Washer Cary Ogden RN/Wet End Helper Advance Directives? Yes Advance Directives on File Yes History Provided By Patient,Friend,Medical Record Prior Living Arrangements Apartment/Condo Household Members none Type of transporation used prior to Drives own vehicle admit Independent with ADL's Yes Is patient alert and oriented? Yes Comment Patient has used [facility] as needed Discharge Plan Transfer to Higher Level of Care Transportation Arrangement Friends Referrals Initiated Home Health,Other Additional Comment It is unclear at this time if patient will be transferred to higher level hospital Whiteboard Updated in Patient Room with Yes name and ext. # of Vegetable Washer Review Status In Process Next Review Type Continued Stay Review
[2022-03-28 09:25] LABS: Appearance Urine UA CLEAR; Bilirubin Urine UA NEGATIVE (NEGATIVE); Color Urine UA YELLOW; Glucose Urine UA NEGATIVE (Negative); Ketones Urine UA NEGATIVE (NEGATIVE); Leukocyte Esterase Urine UA NEGATIVE (NEGATIVE); Nitrite Urine UA NEGATIVE (Negative); Occult Blood Urine UA NEGATIVE (Negative); Protein Urine UA NEGATIVE (Negative); Urobilinogen Urine UA 0.2 E.U./dL (0.2)
[2022-03-28 09:34] LABS: Bacteria Urine None Seen; Culture Indicated Urine Cult Not Indicated; RBC Urine None Seen (0-5/HPF); Squamous Epithelial Cell Urine 0-1 /HPF (0-5/HPF); WBC Urine None Seen (0-5/HPF)
--- NOTE | 2022-03-28 10:11 | PC.NURSE ---
Addendum entered by Glendy Coleman R.N. 03/28/22 14:38: pt transferred to [facility] in [place] for potential cardiac cath and further care- report called to ROQUE Hi RN AT BEDSIDE Addendum entered by Glendy Coleman R.N. 03/28/22 11:56: AFTER LENGTHY DISCUSSION BETWEEN POA ([place]) AND PT AND , THE DECISION WAS MADE THAT PT WOULD ACCEPT TRANSFER TO [facility] IN [place] FOR FURTHER CARE - PT ACCEPTED BOTH LOADING DOSE OF PLAVIX AND LISINOPRIL AT APPROX 1150, COORDINATOR TO ARRANGE TRANSPORTATION Original Note: PT NOTED TO HAVE ELEVATED TROPONIN THIS AM AND TUBE WINDER SPOKE WITH PT AND 1 OF HER 3 POA'S - [place]. PT AT THIS TIME IS DECLINING TRANSFER TO [facility] FOR POTENTIAL ANGIOGRAM. PT DECLINES TO TAKE PO PLAVIX ( LOADING DOSE) AND WILL MAYBE TAKE THE 75MG OF SAME- HAS NOT OF YET. SHE DECLINES SOB/CHEST PAIN BUT AUSCULTATED FEW FINE CRACKLES BILAT BASES AND INTERMITTENTLY INS/EXP WHEEZES- ROOM AIR SPO2 90-92%, NOTED 1+ PERIPHERAL EDEMA NOTED- URINE SENT FOR UAC, WHICH RESULTED NEGATIVE- PT QUITE ADAMANT RE:RECENT RX FOR MACROBID- UPDATE TO BOTH PT/ROQUE AND MD SHE REMAINS SOMEWHAT HYPERTENSIVE AT 159/69 WITH MAP 99- DECLINING NEW RX FOR LISINOPRIL AT THIS TIME
--- NOTE | 2022-03-28 11:44 | PM.DS.1 ---
History of Present Illness History of Present Illness Date Patient Seen: 03/28/22 Chief complaint: Resp distress Narrative: Patient today with no shortness of breath and no chest pain. initially admitted with PMH CHFpEF, aortic regurgitation, chronic hyponatremia, HTN, atrial fibrillation who presenting with shortness of breath. She also noted previous tracheal surgery for carcinoid, and says she can not be intubated and is a DNR. She also has a possible asthma history. Discharge Providers Provider Date of admission: 03/27/22 21:24 Discharge Date: 03/28/22 Primary care physician: Pardeep Pizarro MD Consults: Tele-School Janitor consults to Dr. Espinoza and Dr. Lopez. Discharge provider: Christine Duarte MD Summary Hospital Course Discharge Diagnosis: Acute NSTEMI. Hospital Course: Patient admitted with shortness of breath concerning for exacerbation of CHF. BNP elevated and troponin initially normal. With rise in troponin, diagnosis changed to NSTEMI. Patient to Eliquis and Plavix was initiated at dose of 300 mg with some patient hesitation. No ASA since patient allergic to ASA. patient's child center assistant located in [facility] contacted for a transfer for further evaluation with angiocath and possible procedures. Dr. Combs Hospitalist is acceptiong physician. Status at Discharge Cognitive/behavioral status at discharge: oriented and agitated Functional status at discharge: independent ambulation Overall status at discharge: other Exam Vital Signs (past 8 hours): - 03/28/22 04:00 03/28/22 05:00 03/28/22 06:00 Temperature Pulse Rate 75 79 76 Respiratory Rate 16 27 H 15 Blood Pressure 151/68 H 163/72 H 152/65 H Pulse Oximetry 99 97 100 03/28/22 07:00 03/28/22 07:35 03/28/22 07:36 Temperature 100.1 F H Pulse Rate 76 76 Respiratory Rate 14 14 Blood Pressure 161/71 H Pulse Oximetry 98 98 92 03/28/22 07:43 03/28/22 08:00 Temperature 100.1 F H Pulse Rate 67 65 Respiratory Rate 29 H 34 H Blood Pressure 159/69 H 159/69 H Pulse Oximetry 90 L 91 Fraction of Inspired Oxygen 30 Oxygen Delivery Method Room Air Oxygen Flow Rate 2 Const Orientation: alert and oriented x3 HENMT Throat: other Other: has had previous surgery on neck/trachea area. Eyes Conjunctivae: conjunctivae normal Pupils: PERRL EOM: EOM intact bilaterally Resp Auscultation: clear to auscultation bilaterally Other: increased respiratory rate. Cardio Rate: regular rate Heart Sounds: S1 normal and S2 normal Pulses: normal peripheral pulses GI Palpation: soft Auscultation: normal bowel sounds Objective Labs Result Diagrams: 03/28/22 04:57 03/28/22 04:57 Labs: Laboratory Results - last 24 hr 03/27/22 03/27/22 03/27/22 20:14 20:14 20:14 WBC 10.4 RBC 4.16 Hgb 12.9 Hct 37.2 MCV 89.4 MCH 31.1 MCHC 34.8 RDW 13.2 Plt Count 207 Neut % (Auto) 87.6 H Lymph % (Auto) 4.7 L [place] % (Auto) 7.1 Eos % (Auto) 0.2 L Baso % (Auto) 0.4 Neut # (Auto) 9100 H Lymph # (Auto) 500 L [place] # (Auto) 700 Eos # (Auto) 0 Baso # (Auto) 0 ABG pH ABG pCO2 ABG pO2 ABG HCO3 ABG Total CO2 ABG O2 Saturation ABG Base Excess FiO2 Sodium 123 L Potassium 5.2 H Chloride 87 L Carbon Dioxide 29 BUN 28 H Creatinine 0.73 Estimated GFR > 60 BUN/Creatinine Ratio 38.4 H Glucose 261 H Lactate 1.3 Calcium 9.5 Magnesium Total Bilirubin 1.1 AST 41 H ALT 34 Alkaline Phosphatase 84 Total Creatine Kinase CK-MB (CK-2) CK-MB (CK-2) Rel Index Troponin I NT-Pro-B Natriuret Pep Total Protein 8.8 H Albumin 4.6 Globulin 4.2 H Albumin/Globulin Ratio 1.1 Urine Color Urine Appearance Urine pH Ur Specific [place] Urine Protein Urine Glucose (UA) Urine Ketones Urine Occult Blood Urine Nitrate Urine Bilirubin Urine Urobilinogen Ur Leukocyte Esterase Urine RBC Urine WBC Ur Squamous Epith Cells Urine Bacteria Ur Culture Indicated? Nasal Screen MRSA (PCR) SARS-CoV-2 (PCR) 03/27/22 03/27/22 03/27/22 20:16 20:17 21:00 WBC RBC Hgb Hct MCV MCH MCHC RDW Plt Count Neut % (Auto) Lymph % (Auto) [place] % (Auto) Eos % (Auto) Baso % (Auto) Neut # (Auto) Lymph # (Auto) [place] # (Auto) Eos # (Auto) Baso # (Auto) ABG pH 7.38 ABG pCO2 46.1 H ABG pO2 110 H ABG HCO3 27 H ABG Total CO2 29 ABG O2 Saturation 98 ABG Base Excess 2.0 FiO2 40 Sodium Potassium Chloride Carbon Dioxide BUN Creatinine Estimated GFR BUN/Creatinine Ratio Glucose Lactate Calcium Magnesium Total Bilirubin AST ALT Alkaline Phosphatase Total Creatine Kinase 49 CK-MB (CK-2) TNP CK-MB (CK-2) Rel Index TNP Troponin I 0.014 NT-Pro-B Natriuret Pep 6400 H Total Protein Albumin Globulin Albumin/Globulin Ratio Urine Color Urine Appearance Urine pH Ur Specific [place] Urine Protein Urine Glucose (UA) Urine Ketones Urine Occult Blood Urine Nitrate Urine Bilirubin Urine Urobilinogen Ur Leukocyte Esterase Urine RBC Urine WBC Ur Squamous Epith Cells Urine Bacteria Ur Culture Indicated? Nasal Screen MRSA (PCR) SARS-CoV-2 (PCR) Negative 03/27/22 03/28/22 03/28/22 21:00 04:51 04:57 WBC 8.6 RBC 3.65 L Hgb 11.1 L Hct 32.1 L MCV 87.9 MCH 30.4 MCHC 34.6 RDW 13.4 Plt Count 166 Neut % (Auto) 81.3 H Lymph % (Auto) 6.3 L [place] % (Auto) 11.7 Eos % (Auto) 0.1 L Baso % (Auto) 0.6 Neut # (Auto) 7000 Lymph # (Auto) 500 L [place] # (Auto) 1000 H Eos # (Auto) 0 Baso # (Auto) 100 ABG pH ABG pCO2 ABG pO2 ABG HCO3 ABG Total CO2 ABG O2 Saturation ABG Base Excess FiO2 Sodium Potassium Chloride Carbon Dioxide BUN Creatinine Estimated GFR BUN/Creatinine Ratio Glucose Lactate Calcium Magnesium Total Bilirubin AST ALT Alkaline Phosphatase Total Creatine Kinase CK-MB (CK-2) CK-MB (CK-2) Rel Index Troponin I 3.610 H* NT-Pro-B Natriuret Pep Total Protein Albumin Globulin Albumin/Globulin Ratio Urine Color Urine Appearance Urine pH Ur Specific [place] Urine Protein Urine Glucose (UA) Urine Ketones Urine Occult Blood Urine Nitrate Urine Bilirubin Urine Urobilinogen Ur Leukocyte Esterase Urine RBC Urine WBC Ur Squamous Epith Cells Urine Bacteria Ur Culture Indicated? Nasal Screen MRSA (PCR) Negative for mrsa SARS-CoV-2 (PCR) 03/28/22 03/28/22 03/28/22 04:57 09:00 09:24 WBC RBC Hgb Hct MCV MCH MCHC RDW Plt Count Neut % (Auto) Lymph % (Auto) [place] % (Auto) Eos % (Auto) Baso % (Auto) Neut # (Auto) Lymph # (Auto) [place] # (Auto) Eos # (Auto) Baso # (Auto) ABG pH ABG pCO2 ABG pO2 ABG HCO3 ABG Total CO2 ABG O2 Saturation ABG Base Excess FiO2 Sodium 124 L Potassium 4.2 Chloride 89 L Carbon Dioxide 30 BUN 28 H Creatinine 0.80 Estimated GFR > 60 BUN/Creatinine Ratio 35.0 H Glucose 115 H D Lactate Calcium 9.0 Magnesium 2.0 Total Bilirubin AST ALT Alkaline Phosphatase Total Creatine Kinase CK-MB (CK-2) CK-MB (CK-2) Rel Index Troponin I NT-Pro-B Natriuret Pep Total Protein Albumin Globulin Albumin/Globulin Ratio Urine Color Yellow Urine Appearance Clear Urine pH 5.0 Ur Specific [place] 1.010 Urine Protein Negative Urine Glucose (UA) Negative Urine Ketones Negative Urine Occult Blood Negative Urine Nitrate Negative Urine Bilirubin Negative Urine Urobilinogen 0.2 Ur Leukocyte Esterase Negative Urine RBC None seen Urine WBC None seen Ur Squamous Epith Cells 0-1 /hpf Urine Bacteria None seen Ur Culture Indicated? Cult not indicated Nasal Screen MRSA (PCR) SARS-CoV-2 (PCR) 03/28/22 10:58 WBC RBC Hgb Hct MCV MCH MCHC RDW Plt Count Neut % (Auto) Lymph % (Auto) [place] % (Auto) Eos % (Auto) Baso % (Auto) Neut # (Auto) Lymph # (Auto) [place] # (Auto) Eos # (Auto) Baso # (Auto) ABG pH ABG pCO2 ABG pO2 ABG HCO3 ABG Total CO2 ABG O2 Saturation ABG Base Excess FiO2 Sodium Potassium Chloride Carbon Dioxide BUN Creatinine Estimated GFR BUN/Creatinine Ratio Glucose Lactate Calcium Magnesium Total Bilirubin AST ALT Alkaline Phosphatase Total Creatine Kinase CK-MB (CK-2) CK-MB (CK-2) Rel Index Troponin I 2.290 H* NT-Pro-B Natriuret Pep Total Protein Albumin Globulin Albumin/Globulin Ratio Urine Color Urine Appearance Urine pH Ur Specific [place] Urine Protein Urine Glucose (UA) Urine Ketones Urine Occult Blood Urine Nitrate Urine Bilirubin Urine Urobilinogen Ur Leukocyte Esterase Urine RBC Urine WBC Ur Squamous Epith Cells Urine Bacteria Ur Culture Indicated? Nasal Screen MRSA (PCR) SARS-CoV-2 (PCR) PFS Medical History Bilateral sensorineural hearing loss Chronic hyponatremia Eczematous dermatitis Essential (primary) hypertension Heart failure with preserved ejection fraction Hypertension Insomnia Mixed hyperlipidemia Paroxysmal atrial fibrillation Sleep apnea Valvular heart disease Surgical History History of lung surgery Family History Mother Congestive heart failure Father Patient killed Social History household members: none lives independently: Yes Smoking Status: Never smoker alcohol intake: never Discharge Plan Discharge Plan Other facility: [facility] in [place]. Accepting Physician Hospitalist Dr. Combs Discharge orders & Medications Discharge Orders: Discharge (Order); Ordered 03/28/22 Ordered By: Christine Duarte Prescriptions: New acetaminophen 325 mg Tablet 650 mg PO Q6HR PRN (Reason: pain, fever) Qty: 60 0RF atorvastatin [Lipitor] 20 mg Tablet 40 mg PO BEDTIME Qty: 60 0RF clopidogrel 75 mg Tablet 75 mg PO DAILY Qty: 30 0RF famotidine [Pepcid AC] 20 mg Tablet 20 mg PO DAILY Qty: 30 0RF lisinopril 5 mg Tablet 5 mg PO DAILY Qty: 30 0RF bumetanide 0.25 mg/mL Solution 1 mg IV BID Qty: 10 0RF sodium chloride 0.9 % (flush) [Normal Saline Flush] Syringe 10 ml IV PRN PRN (Reason: Flush) Qty: 10 0RF sodium chloride 0.9 % (flush) [Normal Saline Flush] Syringe 10 ml IV BID Qty: 10 0RF ondansetron HCl (PF) 4 mg/2 mL Solution 4 mg IV Q8HR PRN (Reason: Nausea And Vomiting) Qty: 2 0RF Continued apixaban 2.5 mg tablet 2.5 mg PO BID Qty: 180 3RF amlodipine 2.5 mg tablet 5 mg PO BEDTIME 0RF vitamin K2 100 mcg capsule 100 mcg PO DAILY 0RF magnesium oxide 400 mg magnesium capsule 400 mg PO DAILY 0RF cholecalciferol (vitamin D3) 25 mcg (1,000 unit) capsule 25 mcg PO QNOON 0RF acetaminophen 325 mg capsule 325 mg PO ONCE PRN (Reason: Pain (Scale Score 1-3)) 0RF nadolol 40 mg tablet 40 mg PO BEDTIME 0RF fluticasone propionate 50 mcg/actuation [place],Suspension 1 spray INTRANASAL DAILY 0RF Discontinued simvastatin 5 mg tablet 5 mg PO BEDTIME 0RF Follow up/Referrals: Pardeep Pizarro MD [Primary Care Provider] - Discharge Data Primary Care Provider: Pardeep Pizarro V Quality AMI Contraindication for Aspirin: Adverse reaction to drug VTE Deep Vein Thrombosis/Pulmonary Embolism Present on Admission: No
[2022-03-28] MEDS: lisinopriL 5 MG TABLET PO (11:55)
[2022-03-28] MEDS: CLOPIDOGREL 75 MG TABLET 300 MG PO (11:56)
== END 2022-03-28 14:00 | disposition short-term general hospital (02) | DRG 280 ==
LOC: ED 21:00 → ICU 03-28 12:15 → AC 03-29 15:12 → ICU 03-29 15:12
PROVIDERS: Internal Medicine; Admitting Provider Internal Medicine; Emergency Provider Emergency Medicine; PCP Internal Medicine; Referring Provider Emergency Medicine; Visit Provider Internal Medicine
DX: I21.4 Non-ST elevation (NSTEMI) myocardial infarction (principal); I50.33 Acute on chronic diastolic (congestive) heart failure; J96.01 Acute respiratory failure with hypoxia; I48.20 Chronic atrial fibrillation, unspecified; E87.1 Hypo-osmolality and hyponatremia; I11.0 Hypertensive heart disease with heart failure; E78.2 Mixed hyperlipidemia; G47.30 Sleep apnea, unspecified; Z66 Do not resuscitate; Z20.822 Contact with and (suspected) exposure to COVID-19; Z79.01 Long term (current) use of anticoagulants
CPT/HCPCS: 36415; 36600; 71045; 80048; 80053; 81001; 82550; 82805; 83605; 83735; 83880; 84484; 85025; 87635; 87797; 93005; 93306; 94660; 96374; 99285; 99291; 99292; C9803; A9270; J1940